=== PATIENT | male | born 1940 | race Caucasian/White ===

== ENCOUNTER 2020-07-08 18:13 | Inpatient (IN) | payer OTHER ==
[2020-07-08 18:53] VITALS: BMI 23.5
--- NOTE | 2020-07-08 19:15 | PDOC ---
History of Present Illness - General Chief Complaint: SIRS, Suspected/Possible Stated Complaint: FEVER Time Seen by Provider: 07/08/20 19:07 History Source: Patient, Family, [facility] Records - History of Present Illness Initial Comments: 07/08/20 19:14 Randy Garcia is an 80M with PMH COVID-19 infection in February 2020, recurrent UTI, prostate CA responsive to hormone therapy, CAD s/p stenting ~10 years ago, early stage dementia, presenting from [facility] for fever. Per patient, has not been eating a lot, just had an Ensure today. Last urination yesterday, says he has not had to go for a while. Reports feeling weak and having a fever today, otherwise denies chest pain, SOB, abd pain, coughing, diarrhea. Denies any recent illness, dysuria, or any recent hospitalizations. Received call from nurse at [facility], has had a fever all day today, last checked 102F, given Tylenol PO at 17:30. Received call from son Nitin Garcia, reports patient is baseline alert and oriented but has periods of decreased lucidity. Was covid-19 positive in February, . Has had multiple recurrent UTI since then, was hospitalized at [facility] for IV ABx. Past History - Medical History Allergies/Adverse Reactions: Allergies Allergy/AdvReac Type Severity Reaction Status Date / Time No Known Allergies Allergy Verified 07/08/20 18:27 Home Medications: Ambulatory Orders Acetaminophen 325 mg PO BID 07/08/20 Ascorbic Acid [Vitamin C] 250 mg PO BID 07/08/20 Aspirin 81 mg PO DAILY 07/08/20 Desvenlafaxine Succinate [Desvenlafaxine Succinate ER] 25 mg PO DAILY 07/08/20 Memantine HCl [Memantine HCl ER] 28 mg PO DAILY 07/08/20 Mirtazapine 7.5 mg PO HS 07/08/20 Rivastigmine 1 each TD DAILY 07/08/20 Silodosin 4 mg PO DAILY 07/08/20 Tamsulosin HCl 0.4 mg PO DAILY 07/08/20 Cancer: Yes (PROSTATE) COPD: No Dementia: Yes - Psycho-Social/Smoking History Smoking History: Never smoked Have you smoked in the past 12 months: No Information on smoking cessation initiated: No - Substance Abuse Hx (Audit-C & DAST Scrn) How often the patient has a drink containing alcohol: Never Score: In Men: 4 or > Positive; In Women: 3 or > Positive: 0 Screen Result (Pos requires Nsg. Audit-10AR): Negative In the last yr the pt used illegal drug/Rx for NonMed reason: No Score: Yes response is considered Positive: 0 Screen Result (Positive result requires Nsg. DAST-10): Negative Review of Systems - Review of Systems Able to Perform ROS?: Yes Constitutional: Yes: Fever, Weakness HEENTM: No: Symptoms Reported Respiratory: No: Symptoms reported Cardiac (ROS): No: Symptoms Reported ABD/GI: No: Symptoms Reported : No: Burning, Dysuria, Discharge, Flank Pain, Incontinence, Pain Musculoskeletal: No: Symptoms Reported Integumentary: No: Symptoms Reported Neurological: No: Symptoms reported Endocrine: No: Symptoms Reported Hematologic/Lymphatic: No: Symptoms Reported All Other Systems: Reviewed and Negative *Physical Exam - Vital Signs Last Vital Signs Temp Pulse Resp BP Pulse Ox 102.3 F H 109 H 20 121/73 96 07/08/20 18:27 07/08/20 18:27 07/08/20 18:27 07/08/20 18:27 07/08/20 18:27 - Physical Exam General Appearance: Yes: Nourished, Appropriately Dressed, Other (resting comfortably in bed, in NAD, feels very warm). No: Apparent Distress HEENT: positive: EOMI, SHEYLA, Normal Voice, Symmetrical, Pharynx Normal. negative: Scleral Icterus (R), Scleral Icterus (L), Pharyngeal Erythema, Tonsillar Exudate, Tonsillar Erythema Neck: positive: Normal Thyroid. negative: Tender, Supple, Lymphadenopathy (L), Tender lateral, Tender midline Respiratory/Chest: positive: Lungs Clear, Normal Breath Sounds. negative: Chest Tender, Respiratory Distress, Accessory Muscle Use, Crackles, Rales, Rhonchi, Stridor, Wheezing Cardiovascular: positive: Regular Rhythm, Tachycardia. negative: Murmur Gastrointestinal/Abdominal: positive: Normal Bowel Sounds, Soft, Protuberent. negative: Tender, Organomegaly, Guarding, Rebound, Tenderness Male Genitalia: positive: other (hypospadias) Musculoskeletal: positive: Normal Inspection. negative: CVA Tenderness, Decreased Range of Motion, Vertebral Tenderness Extremity: positive: Normal Capillary Refill, Normal Inspection, Normal Range of Motion, Pelvis Stable. negative: Tender, Pedal Edema, Swelling, Calf Tenderness Integumentary: positive: Normal Color, Dry, Warm. 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 Patient is A/Ox2 and reports no symptoms other than fever and weakness, VS remarkable for tachycardia and fever to 102F oral. Concerned for infectious etiology most likely UTI vs. PNA, evaluating broadly with sepsis labs, BC, UA/UC, CXR, ECG. Giving sepsis dose IVF LR and Ofirmev for fever. Will likely need admission for IV Abx for infectious etiology. 07/08/20 20:11 ECG shows NSR with HR 90, QTc 435, no RALPH/D or TWI. CXR grossly unremarkable for pathology on bedside read. 07/08/20 20:57 Labs notable for: - WBC 12.1 - Hgb 9.6, unclear baseline - Na 133 - Cr 2.3, unclear baseline - UA 2+ protein, 3+ blood, 3+ LE, uncontaminated, 15 bacteria, did have traumatic straight cath insertion 2/2 hypospadias Will treat for presumed UTI with 1g Rocephin. Repeat VS remarkable for HR 80s and repeat temp 98F. Will need admission for IV Abx given suspected UTI with OLIVA, evaluation for possible anemia. 07/08/20 21:[address] Singleton, accepts for admission to Med/Surg under his service. Discharge - Discharge Information Problems reviewed: Yes Clinical Impression/Diagnosis: Systemic inflammatory response syndrome (SIRS), OLIVA (acute kidney injury) Fever Qualifiers: Fever type: unspecified Qualified Code(s): R50.9 - Fever, unspecified UTI (urinary tract infection) Qualifiers: Urinary tract infection type: site unspecified Hematuria presence: without hematuria Qualified Code(s): N39.0 - Urinary tract infection, site not specified - Admission Yes - Follow up/Referral Referrals: Pamela Hooks [Primary Care Provider] - - Patient Discharge Instructions - Post Discharge Activity
[2020-07-08] MEDS ORDERED: ACETAMINOPHEN 1000 MG/100 ML VIAL (NON FORMULARY) IVPB ONE (19:38)
[2020-07-08] MEDS ORDERED: ACETAMINOPHEN INJECTION 100 ML IVPB ONE (19:44)
[2020-07-08] MEDS ORDERED: LACTATED RINGERS SOLUTION 1000 ML INFUS.BAG IV ONE (19:52)
--- NOTE | 2020-07-08 19:55 | PDOC ---
Documentation entered by Corazon Gamez SCRIBE, acting as scribe for Leticia Jaquez MD. Leticia Jaquez MD: This documentation has been prepared by the Vera cardenas Brenda, SCRIBE, under my direction and personally reviewed by me in its entirety. I confirm that the documentation accurately reflects all work, treatment, procedures, and medical decision making performed by me. Attending Attestation - Resident Resident Name: JahairaCallum - ED Attending Attestation I have performed the following: I have examined & evaluated the patient, The case was reviewed & discussed with the resident, I agree w/resident's findings & plan, Exceptions are as noted - HPI HPI: 07/08/20 19:46 The patient is an 80 year old male with a significant pmh of prostate CA responsive to hormone therapy, CAD s/p stent (10 years ago) and mild dementia who presents to the ED BIBA for evaluation of a 102 fever from [facility]. [facility], he had a 102 fever and she gave him Tylenol at 5:45pm. Patient was COVID+ in February 2020. Last urination was yesterday. The patient denies chest pain, shortness of breath, headache and dizziness. Denies fever, chills, nausea, vomiting, diarrhea and constipation. - Physicial Exam PE: 07/08/20 19:54 thin 80 yo male who has had fever head ncat neck supple lungs cta b/l cvs tachycardia abdomen no rebound skin warn and dry no cva tenderness extremities no erythema neuro alert and conversant 07/08/20 21:33 - Medical Decision Making 07/09/20 01:37 pt is febrile with UTI and worsening CKD and he was admitted Discharge - Discharge Information Problems reviewed: Yes Clinical Impression/Diagnosis: Systemic inflammatory response syndrome (SIRS), OLIVA (acute kidney injury) Fever Qualifiers: Fever type: unspecified Qualified Code(s): R50.9 - Fever, unspecified UTI (urinary tract infection) Qualifiers: Urinary tract infection type: site unspecified Hematuria presence: without hematuria Qualified Code(s): N39.0 - Urinary tract infection, site not specified - Follow up/Referral - Patient Discharge Instructions - Post Discharge Activity
[2020-07-08 20:07] LABS: EOS % 0.4 % (0-4.5); HEMATOCRIT 28.6 % (35.4-49); HEMOGLOBIN 9.6 GM/dL (11.7-16.9); LYMPH % 6.7 % (8-40); MCH 28.1 pg (25.7-33.7); MCHC 33.4 g/dl (32.0-35.9); MEAN PLT VOLUME 7.8 fl (7.5-11.1); MONO % 8.4 % (3.8-10.2); NEUT % 83.5 % (42.8-82.8); PLATELET COUNT 346 K/MM3 (134-434); RDW 14.5 % (11.9-15.9); WHITE BLOOD COUNT 12.1 K/mm3 (4.0-10.0)
[2020-07-08 20:28] LABS: ALBUMIN 2.9 g/dl (3.4-5.0); BILIRUBIN,TOTAL 0.3 mg/dL (0.2-1); BLOOD UREA NITROGEN 44.2 mg/dL (7-18); CALCIUM 8.5 mg/dL (8.5-10.1); CREATININE 2.3 mg/dL (0.55-1.3); POTASSIUM 4.8 mmol/L (3.5-5.1)
[2020-07-08 20:34] LABS: INR 1.25 (0.83-1.09); PROTHROMBIN TIME (PATIENT) 14.8 SEC (9.7-13.0)
[2020-07-08 20:36] LABS: ACTIVATED PTT 30.3 SECONDS (25.2-36.5)
[2020-07-08 20:38] LABS: EPI CELLS 0 /uL (0-25.1); HYALINE CASTS 1 /uL (0-3.1); PH,URINE 6.5 (5.0-8.0); URINE APPEARANCE CLOUDY; URINE BACTERIA 15 /uL (0-1359); URINE BILIRUBIN NEGATIVE (NEGATIVE); URINE COLOR YELLOW; URINE GLUCOSE (UA) NEGATIVE (NEGATIVE); URINE KETONE NEGATIVE (NEGATIVE); URINE LEUK ESTERASE 3+ (NEGATIVE); URINE NITRITE NEGATIVE (NEGATIVE); URINE PROTEIN 2+ (NEGATIVE); URINE RBC 572 /uL (0-23.9); URINE UROBILINOGEN 0.2 mg/dL (0.2-1.0); URINE WBC 1597 /uL (0-25.8)
[2020-07-08] MEDS ORDERED: CEFTRIAXONE 1,000 MG in DEXTROSE 5%-WATER - 50 ML IVPB ONE (21:07)
[2020-07-08] MEDS ORDERED: cefTRIAXone SODIUM 1 GM VIAL ONE (21:08)
--- NOTE | 2020-07-08 21:22 | HP ---
Admitting History and Physical - Admission Chief Complaint: Acute onset of fever History of Present Illness: This 80 yr old w/m with PMH of prostate cancer responsive to hormone therapy, CAD, s/p stent, mild dementia, s/p Covid infection in 02/2020 admitted via ER with an acute fever, acute UTI, acute prerenal azotemia, anemia, neutrophilic leukocytosis, and acute hyponatremia. 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 Cardiovascular: No: AFIB, Aneurysm, Aortic Insufficiency, Aortic Stenosis, CAD, CHF, Deep Vein Thrombosis, HTN, Hyperlipdemia, [place], Mitral Insufficiency, Mitral Stenosis, Murmur, Pulmonary Hypertension, Other Pulmonary: No: Asthma, Bronchitis, Cancer, COPD, O2 Dependent, Pneumonia, Previously Intubated, Pulmonary Embolus, Pulmonary Fibrosis, Sleep Apnea, Other Gastrointestinal: No: Ascites, Cancer, Constipation, Crohn's Disease, D iverticulitis, Diverticulosis, Esophageal Varices, Gastritis, GERD, GI Bleed, Hemorrhoids, Hiatal Hernia, Inflamatory Bowel Disease, Irritable Bowel Disease, Pancreatitis, Peptic Ulcer Disease, Ulcerative Colitis, Other Hepatobiliary: No: Cirrhosis, Cholelithiasis, Cholecystitis, Choledocholithiasis, Hepatitis A, Hepatitis B, Hepatitis C, Other Renal/: Yes: Cancer (prostate) Heme/Onc: No: Anemia, B12 Deficiency, Bleeding Disorder, Cancer, Current Chemotherapy, Current Radiation Therapy, Hemochromatosis, Hypercoaguable State, Myeloproliferative Synd, Sickle Cell Disease, Sickle Cell Trait, Thrombocytopenia, Other Infectious Disease: No: AIDS, C-Diff, Herpes Zoster, HIV, MRSA, STD's, Tubercu losis, VREF, Other Psych: Yes: Anxiety, Depression Musculoskeletal: No: Bursitis, Chronic low back pain, Hemiparesis, Hemiplegia, Osteoarthritis, Paraplegia, Other Rheumatology: No: Fibromyalgia, Gout, Lupus, Rheumatoid Arthritis, Sarcoidosis, Vasculitis, Other ENT: No: Allergic Rhinitis, Sinusitis, Other Endocrine: No: Kd's Disease, Luis Antonio's Disease, Diabetes Insipidus, Diabetes Mellitus, Hyperparathyroidism, Hyperthyroidism, Hypothyroidism, Osteopenia, SIADH, Other Dermatology: No: Basal Cell, Cellulitis, Eczema, Melanoma, Psoriasis, Squamous Cell, Other - Past Surgical History Past Surgical History: Yes: Stent - Smoking History Smoking history: Never smoked Have you smoked in the past 12 months: No - Alcohol/Substance Use History of Substance Use: reports: None - Social History Usual Living Arrangement: Yes: Assisted Living Home Medications - Allergies Allergies/Adverse Reactions: Allergies Allergy/AdvReac Type Severity Reaction Status Date / Time No Known Allergies Allergy Verified 07/08/20 18:27 - Home Medications Home Medications: Ambulatory Orders Acetaminophen 325 mg PO BID 07/08/20 Ascorbic Acid [Vitamin C] 250 mg PO BID 07/08/20 Aspirin 81 mg PO DAILY 07/08/20 Desvenlafaxine Succinate [Desvenlafaxine Succinate ER] 25 mg PO DAILY 07/08/20 Memantine HCl [Memantine HCl ER] 28 mg PO DAILY 07/08/20 Mirtazapine 7.5 mg PO HS 07/08/20 Rivastigmine 1 each TD DAILY 07/08/20 Silodosin 4 mg PO DAILY 07/08/20 Tamsulosin HCl 0.4 mg PO DAILY 07/08/20 Review of Systems - Review of Systems Constitutional: reports: Fever, Weakness Eyes: reports: No Symptoms HENT: reports: No Symptoms Neck: reports: No Symptoms Cardiovascular: reports: Palpitations Respiratory: reports: No Symptoms Gastrointestinal: reports: No Symptoms Genitourinary: reports: No Symptoms Breasts: reports: No Symptoms Reported Musculoskeletal: reports: Muscle Weakness Integumentary: reports: No Symptoms Neurological: reports: Weakness Endocrine: reports: No Symptoms Hematology/Lymphatic: reports: No Symptoms Psychiatric: reports: Anxiety, Depression Physical Examination Vital Signs: Vital Signs Temperature 98.0 F 07/08/20 20:53 Pulse Rate 86 07/08/20 20:54 Respiratory Rate 20 07/08/20 20:53 Blood Pressure 117/65 07/08/20 20:54 O2 Sat by Pulse Oximetry (%) 96 07/08/20 18:27 Constitutional: Yes: Well Nourished, No Distress, Calm Eyes: Yes: Conjunctiva Clear, EOM Intact HENT: Yes: Atraumatic, Normocephalic Neck: Yes: Supple, Trachea Midline Cardiovascular: Yes: Regular Rate and Rhythm Respiratory: Yes: Regular, CTA Bilaterally Gastrointestinal: Yes: Normal Bowel Sounds, Soft ...Rectal Exam: Yes: Deferred Renal/: Yes: WNL Breast(s): Yes: WNL Musculoskeletal: Yes: Muscle Weakness Edema: No Peripheral Pulses WNL: Yes Integumentary: Yes: WNL Neurological: Yes: Alert, Weakness ...Motor Strength: LUE (generalized muscle weakness of all extremities) Psychiatric: Yes: Alert Labs: CBC, BMP 07/08/20 19:40 07/08/20 19:40 Imaging - Results Other: Report Reviewed (lab data reviewed) Problem List - Problems (1) Dehydration Code(s): E86.0 - DEHYDRATION (2) Prerenal azotemia Code(s): R79.89 - OTHER SPECIFIED ABNORMAL FINDINGS OF BLOOD CHEMISTRY (3) Anemia Code(s): D64.9 - ANEMIA, UNSPECIFIED (4) Hyponatremia Code(s): E87.1 - HYPO-OSMOLALITY AND HYPONATREMIA (5) OLIVA (acute kidney injury) Code(s): N17.9 - ACUTE KIDNEY FAILURE, UNSPECIFIED (6) Fever Code(s): R50.9 - FEVER, UNSPECIFIED Qualifiers: Fever type: unspecified Qualified Code(s): R50.9 - Fever, unspecified (7) Systemic inflammatory response syndrome (SIRS) Code(s): R65.10 - SIRS OF NON-INFECTIOUS ORIGIN W/O ACUTE ORGAN DYSFUNCTION (8) UTI (urinary tract infection) Code(s): N39.0 - URINARY TRACT INFECTION, SITE NOT SPECIFIED Qualifiers: Urinary tract infection type: site unspecified Hematuria presence: without hematuria Qualified Code(s): N39.0 - Urinary tract infection, site not specified (9) Prostate cancer Code(s): C61 - MALIGNANT NEOPLASM OF PROSTATE Assessment/Plan Assessment/plan: acute fever, acute UTI, acute urosepsis, acute dehydration, acute prerenal azotemia, acute anemia, OLIVA, CAD, prostate cancer responsive to hormone therapy, mild dementia, personal hx of Covid 19 infection in 02/2020; IV fluids for dehydration, IV Ceftriaxone for UTI, physical therapy, oral tylenol for fever, venlafxine and mirtazapine for depression and anxiety, TITO stockings, hold aspirin.
[2020-07-08] MEDS ORDERED: POTASSIUM CHLORIDE 10 MEQ in DEXTROSE 5%-NORMAL SALINE 1,000 ML IVPB SCH (22:30)
[2020-07-09] MEDS: ASCORBIC ACID 250 MG TABLET (FP) PO SCH ×3 (00:31→22:18)
[2020-07-09] MEDS: ACETAMINOPHEN 325 MG TABLET (FP) PO PRN ×2 (03:26→10:23)
[2020-07-09 08:01] LABS: HEMATOCRIT 29.9 % (35.4-49); HEMOGLOBIN 9.6 GM/dL (11.7-16.9); MCH 27.3 pg (25.7-33.7); MCHC 32.2 g/dl (32.0-35.9); MEAN CELL VOLUME 84.8 fl (80-96); MEAN PLT VOLUME 7.7 fl (7.5-11.1); PLATELET COUNT 367 K/MM3 (134-434); RBC 3.53 M/mm3 (4.00-5.60); RDW 14.5 % (11.9-15.9); WHITE BLOOD COUNT 21.8 K/mm3 (4.0-10.0)
--- NOTE | 2020-07-09 08:19 | PN ---
Progress Note, Physician Chief Complaint: Patient seen and examined at the bedside, no acute events from last night, febrile. History of Present Illness: This 80 yr old w/m with PMH of prostate cancer, CAD, s/p stent, mild dementia, hx of Covid 19 infection in 02/2020 admitted via ER with an acute fever, UTI, uirosepsis, dehydration, prerenal azotemia, OLIVA, hyponatremia, and neutrophilic leukocytosis. - Current Medication List Current Medications: Active Medications Acetaminophen (Tylenol -) 650 mg PO Q6H PRN PRN Reason: FEVER Last Admin: 07/09/20 03:26 Dose: 650 mg Documented by: Ascorbic Acid (Vitamin C -) 250 mg PO BID GENEVIEVE Last Admin: 07/09/20 00:31 Dose: 250 mg Documented by: Enoxaparin Sodium (Lovenox -) 30 mg SQ DAILY [facility] Potassium Chloride 10 meq/ (Dextrose/Sodium Chloride) 1,005 mls @ 50 mls/hr IVPB Q20H [facility] Last Admin: 07/09/20 00:38 Dose: 50 mls/hr Documented by: Memantine (Namenda -) 10 mg PO BID [facility] Mirtazapine (Remeron -) 7.5 mg PO HS [facility] Pantoprazole Sodium (Protonix -) 40 mg PO DAILY [facility] Rivastigmine (Exelon Patch 9.5 Mg/24 Hours -) 1 each TD Q24H [facility] Tamsulosin HCl (Flomax -) 0.4 mg PO DAILY@0830 [facility] Venlafaxine HCl (Effexor Xr -) 37.5 mg PO DAILY@0800 [facility] - Objective Vital Signs: Vital Signs Temperature 99.5 F 07/09/20 06:00 Pulse Rate 95 H 07/09/20 06:00 Respiratory Rate 07/09/20 06:00 Blood Pressure 109/59 L 07/09/20 06:00 O2 Sat by Pulse Oximetry (%) 98 07/09/20 06:00 Constitutional: Yes: Well Nourished, No Distress, Calm Eyes: Yes: Conjunctiva Clear, EOM Intact HENT: Yes: Atraumatic, Normocephalic Neck: Yes: Supple, Trachea Midline Cardiovascular: Yes: Regular Rate and Rhythm Respiratory: Yes: Regular, CTA Bilaterally Gastrointestinal: Yes: Normal Bowel Sounds, Soft ...Rectal Exam: Yes: Deferred Genitourinary: Yes: Lewis Present Breast(s): Yes: WNL Musculoskeletal: Yes: Muscle Weakness Extremities: Yes: WNL Edema: No Peripheral Pulses WNL: Yes Integumentary: Yes: WNL Neurological: Yes: Alert, Unsteady Gait, Weakness ...Motor Strength: LUE (generalized muscle weakness of all extremities) Psychiatric: Yes: Alert Labs: CBC, BMP 07/09/20 07:16 INR, PTT INR 1.25 (0.83-1.09) H 07/08/20 19:40 - ....Imaging Other: Report Reviewed (lab data reviewed) Problem List - Problems (1) Dehydration Code(s): E86.0 - DEHYDRATION (2) Prerenal azotemia Code(s): R79.89 - OTHER SPECIFIED ABNORMAL FINDINGS OF BLOOD CHEMISTRY (3) Anemia Code(s): D64.9 - ANEMIA, UNSPECIFIED (4) Hyponatremia Code(s): E87.1 - HYPO-OSMOLALITY AND HYPONATREMIA (5) OLIVA (acute kidney injury) Code(s): N17.9 - ACUTE KIDNEY FAILURE, UNSPECIFIED (6) Fever Code(s): R50.9 - FEVER, UNSPECIFIED Qualifiers: Fever type: unspecified Qualified Code(s): R50.9 - Fever, unspecified (7) Systemic inflammatory response syndrome (SIRS) Code(s): R65.10 - SIRS OF NON-INFECTIOUS ORIGIN W/O ACUTE ORGAN DYSFUNCTION (8) UTI (urinary tract infection) Code(s): N39.0 - URINARY TRACT INFECTION, SITE NOT SPECIFIED Qualifiers: Urinary tract infection type: site unspecified Hematuria presence: without hematuria Qualified Code(s): N39.0 - Urinary tract infection, site not specified (9) Prostate cancer Code(s): C61 - MALIGNANT NEOPLASM OF PROSTATE Assessment/Plan Assessment/plan: acute fever, UTI, urosepsis, dehydration, prerenal azotemia, OLIVA, hyponatremia, rising neutrophilic leukocytosis, prostate cancer, CAD, hx of Covid 19 infection; IV fluids for dehydration, IV Ceftriaxone for UTI, Lovenox and pantoprazole for DVT/GI prophylaxis, physical therapy, consult to ID pending, renal and bladder sono pending, mirtazapine and venlafaxine for depression, memantine and rivastigmine for dementia.
[2020-07-09 08:20] LABS: ALBUMIN 2.7 g/dl (3.4-5.0); BILIRUBIN,TOTAL 0.5 mg/dL (0.2-1); BLOOD UREA NITROGEN 38.7 mg/dL (7-18); CALCIUM 9.2 mg/dL (8.5-10.1); CREATININE 2.1 mg/dL (0.55-1.3); POTASSIUM 5.1 mmol/L (3.5-5.1)
[2020-07-09] MEDS ORDERED: RIVASTIGMINE 4.6 MG/24 HOURS TRANSDERMAL PATCH TD SCH (10:00)
[2020-07-09] MEDS ORDERED: PT OWN MED DRAWER 7, Y5N ONE ×2 (10:17→21:47)
[2020-07-09] MEDS: ENOXAPARIN NA (PORCINE) 30 MG/0.3 ML DISP.SYRIN SQ SCH (10:21)
[2020-07-09] MEDS: PANTOPRAZOLE 40 MG TABLET PO SCH (10:21)
[2020-07-09] MEDS: TAMSULOSIN HCL 0.4 MG CAP PO SCH (10:21)
[2020-07-09] MEDS: MEMANTINE HCL 10 MG TABLET (FP) PO SCH ×2 (10:21→22:18)
--- NOTE | 2020-07-09 10:37 | EKG ---
Test Reason : Blood Pressure : / mmHG Vent. Rate : 090 BPM Atrial Rate : 090 BPM P-R Int : 140 ms QRS Dur : 088 ms QT Int : 356 ms P-R-T Axes : 064 041 054 degrees QTc Int : 435 ms NORMAL SINUS RHYTHM NORMAL ECG NO PREVIOUS ECGS AVAILABLE Confirmed by Rich Dickson MD ([id number]) on 07/09/2020 10:36:48 AM Referred By: Confirmed By:Rich Dickson MD
--- NOTE | 2020-07-09 10:59 | PN ---
Progress Note (short form) - Note Progress Note: ID CONSULT DICTATED UTI R/O SEPSIS SECONDARY TO UTI MARKED LEUKOCYTOSIS AZOTEMIA PENDING SEPSIS W/U EMPIRIC ZOSYN, ADJUSTED FOR AZOTEMIA
[2020-07-09] MEDS ORDERED: PIPERACILLIN/TAZOBACTAM 3.375 GM VIAL IVPB ONE ×2 (11:45→17:42)
[2020-07-09] MEDS ORDERED: DEXTROSE 5%-WATER - 50 ML IVPB ONE ×2 (11:45→17:42)
--- NOTE | 2020-07-09 11:49 | CONS ---
INFECTIOUS DISEASE CONSULTATION DATE OF CONSULTATION: DATE OF DICTATION: 07/09/2020 HISTORY: The patient is an 80-year-old male with a history of prostate cancer, history of recurrent urinary tract infections, now admitted with high grade fever. He is a resident of [facility]. He suffers from mild dementia. History was obtained from the chart. According to the notes, he had [facility] to [facility] associated with decreased oral intake and decreased urinary output. He was transferred to [facility] where his course was complicated by temperature to 103 and a white blood cell count of 21.8. Urine analysis showed many white cells. He is unable to give any additional history. He has a Lewis catheter in place. According to the notes, he was diagnosed with COVID-19 in February 2020. Since that time he has had recurrent urinary tract infections. He had apparently been hospitalized at [facility] recently and had received IV antibiotics. Further details are not available, and no reported history of multidrug-resistant organisms. PAST MEDICAL HISTORY: Positive for COVID-19 in February 2020, prostate cancer, coronary artery disease, recurrent urinary tract infections, dementia. PAST SURGICAL HISTORY: Status post coronary artery stent. ALLERGIES: No known allergies. OUTPATIENT MEDICATIONS: Include Tylenol, vitamin C, aspirin, memantine, Flomax. SOCIAL HISTORY: [facility], suffers from mild dementia. Nonsmoker, nondrinker. SYSTEMS REVIEW: Neurologic: Positive for mild dementia. No loss of consciousness, seizure activity or focal weakness. Cardiac: Negative chest pain or palpitations. Respiratory: Negative cough or sputum production. Gastrointestinal: Negative vomiting or diarrhea. Genitourinary: As per HPI. LABORATORY DATA: White count 21.8, hematocrit 29.9, platelets 367. BUN 38, creatinine 2.1, glucose 113, liver enzymes normal. Urine analysis 1597 white cells. COVID-19 PCR pending. Cultures pending. Sonogram of the urinary tract shows bilateral hydronephrosis without evidence of stone. Chest x-ray negative for acute infiltrate. PHYSICAL EXAMINATION: General: He is awake. He is comfortable. He is supine in bed in no acute distress. Vital Signs: Temperature 103.1, blood pressure 109/59, pulse 95 regular, respirations 20 per minute. HEENT: Sclerae are anicteric. Heart: Sounds S1, S2. Lungs: Clear. Abdomen: Soft. No suprapubic or flank tenderness. Genitourinary: Lewis catheter is in place. Urine is not grossly purulent. Extremities: Negative for edema. IMPRESSION: 1. Urinary tract infection, possible sepsis secondary to urinary tract infection. 2. Hydronephrosis by sonogram, rule out obstructive uropathy. 3. Marked leukocytosis. 4. Azotemia. Await sepsis workup. Await blood and urine culture results. Empiric antibiotic coverage with Zosyn pending cultures. Will follow. Thank you for the kind referral. EZIO MOORE M.D. [id number]
[2020-07-09] MEDS: PIPERACILLIN/TAZOB 3.375 GM 3.375 GM in DEXTROSE 5%-WATER - 50 ML IVPB SCH ×2 (11:54→17:53)
[2020-07-09] MEDS: RIVASTIGMINE 9.5 MG/24 HOURS TRANSDERMAL PATCH TD SCH (11:54)
[2020-07-09] MEDS: VENLAFAXINE HCL 37.5 MG E.R. CAPSULE PO SCH (11:54)
[2020-07-09] MEDS: DEXTROSE 5%-NORMAL SALINE 1,000 ML IV SCH (11:56)
[2020-07-09] MEDS: FE POLYSAC/CYANOCOBAL/FA COMBO CAPSULE PO SCH (14:16)
[2020-07-09] MEDS: MIRTAZAPINE 15 MG TABLET (FP) PO SCH (22:18)
--- NOTE | 2020-07-10 00:16 | CONS ---
DATE OF CONSULTATION: DATE OF DICTATION: 07/09/2020 HISTORY OF PRESENT ILLNESS: Patient is an 80-year-old male admitted via the emergency room on July 08, 2020. He comes in with acute onset of fever. The patient does have history of prostate cancer undergoing hormone therapy. He has history of coronary artery disease, which he underwent an angioplasty and stent placement. He does have slight dementia. He also has had a COVID infection of February 26, 2020. He is admitted via the emergency room with elevated temperatures, urinary frequency, urgency, and acute onset of azotemia, anemia, leukocytosis, and acute hyponatremia. SOCIAL HISTORY: The patient does have history of dementia. He does have history of anxiety and depression. He has never smoked, denies ethanolism. He is living in assisted living. ALLERGIES: He denies any allergies. MEDICATION: He is on desvenlafaxine succinate, memantine, , rivastigmine, Rapaflo, and Flomax. PHYSICAL EXAMINATION: Vital signs: His temperature was 98, pulse 86, respirations 20, O2 saturation 96, blood pressure 117/65. Abdomen: The patient's abdomen was soft. There was no CVA tenderness. Extremities: There was weakness in all 4 extremities. LABORATORY: His white count is 12.1, hemoglobin and hematocrit is 9.6 over 28.6. BUN and creatinine were 44.2 over 2.3. Admission diagnosis was dehydration, anemia, hypoosmolality and hyponatremia, acute kidney failure, fever. He underwent a renal and pelvic ultrasound. This revealed bilateral hydroureteronephrosis without gross evidence of stones. The bladder was distended with bladder wall thickness. There appeared to be layering of internal debris in the bladder. The patient was unable to void. The prostate is enlarged. The patient had a Lewis catheter placed. IMPRESSION: He appears to have a picture of urosepsis and hydronephrosis with a marked leukocytosis as well as azotemia. Will treat with Zosyn pending cultures. Will also repeat renal ultrasound to rule out obstructive azotemia secondary to prostate obstruction. Will follow patient with you. CATINA DUNN M.D. [id number]
[2020-07-10] MEDS ORDERED: PIPERACILLIN/TAZOBACTAM 3.375 GM VIAL IVPB ONE ×3 (02:37→17:19)
[2020-07-10] MEDS ORDERED: DEXTROSE 5%-WATER - 50 ML IVPB ONE ×3 (02:37→17:19)
[2020-07-10] MEDS: PIPERACILLIN/TAZOB 3.375 GM 3.375 GM in DEXTROSE 5%-WATER - 50 ML IVPB SCH ×3 (02:41→17:23)
[2020-07-10] MEDS: DEXTROSE 5%-NORMAL SALINE 1,000 ML IV SCH ×3 (06:21→23:05)
[2020-07-10 08:35] LABS: BASO % 0.7 % (0-2.0); EOS % 0.3 % (0-4.5); HEMATOCRIT 27.4 % (35.4-49); HEMOGLOBIN 8.7 GM/dL (11.7-16.9); LYMPH % 8.3 % (8-40); MCH 26.8 pg (25.7-33.7); MCHC 31.8 g/dl (32.0-35.9); MEAN CELL VOLUME 84.4 fl (80-96); MEAN PLT VOLUME 8.1 fl (7.5-11.1); MONO % 8.5 % (3.8-10.2); NEUT % 82.2 % (42.8-82.8); PLATELET COUNT 293 K/MM3 (134-434); RBC 3.25 M/mm3 (4.00-5.60); RDW 14.8 % (11.9-15.9); WHITE BLOOD COUNT 12.8 K/mm3 (4.0-10.0)
[2020-07-10] MEDS ORDERED: PT OWN MED DRAWER 7, Y5N ONE ×3 (08:46→20:51)
[2020-07-10] MEDS: TAMSULOSIN HCL 0.4 MG CAP PO SCH (08:50)
[2020-07-10] MEDS: VENLAFAXINE HCL 37.5 MG E.R. CAPSULE PO SCH (08:50)
[2020-07-10 09:01] LABS: ALBUMIN 2.2 g/dl (3.4-5.0); BILIRUBIN,TOTAL 0.5 mg/dL (0.2-1); BLOOD UREA NITROGEN 35.6 mg/dL (7-18); CALCIUM 8.4 mg/dL (8.5-10.1); CREATININE 2.4 mg/dL (0.55-1.3); POTASSIUM 4.5 mmol/L (3.5-5.1); TOT PROT 5.9 g/dl (6.4-8.2)
--- NOTE | 2020-07-10 10:40 | PN ---
Progress Note, Physician Chief Complaint: Patient seen and examined at the bedside, no acute events from last night, febrile, c/o constipation. History of Present Illness: This 80 yr old w/m with PMH of prostate cancer, CAD, s/p stent, mild dementia, hx of Covid 19 infection in 02/25 admitted via ER with an acute fever, UTI, urosepsis, dehydration, OLIVA, prerenal azotemia, anemia, and hyponatremia. - Current Medication List Current Medications: Active Medications Acetaminophen (Tylenol -) 650 mg PO Q6H PRN PRN Reason: FEVER Last Admin: 07/09/20 10:23 Dose: 650 mg Documented by: Ascorbic Acid (Vitamin C -) 250 mg PO BID [facility] Last Admin: 07/09/20 22:18 Dose: 250 mg Documented by: B12/Folic Ac/Intrin Fact/Iron/Vit C (Niferex-150 Forte -) 1 each PO DAILY [facility] Last Admin: 07/09/20 14:16 Dose: Not Given Documented by: Enoxaparin Sodium (Lovenox -) 30 mg SQ DAILY [facility] Last Admin: 07/09/20 10:21 Dose: 30 mg Documented by: Piperacillin Sod/Tazobactam (Sod 3.375 gm/ Dextrose) 50 mls @ 100 mls/hr IVPB Q8H-IV [facility]; Protocol Last Admin: 07/10/20 02:41 Dose: 100 mls/hr Documented by: Dextrose/Sodium Chloride (D5-Ns -) 1,000 mls @ 50 mls/hr IV ASDIR [facility] Last Admin: 07/10/20 06:21 Dose: 50 mls/hr Documented by: Memantine (Namenda -) 10 mg PO BID [facility] Last Admin: 07/09/20 22:18 Dose: 10 mg Documented by: Mirtazapine (Remeron -) 7.5 mg PO HS [facility] Last Admin: 07/09/20 22:18 Dose: 7.5 mg Documented by: Pantoprazole Sodium (Protonix -) 40 mg PO DAILY [facility] Last Admin: 07/09/20 10:21 Dose: 40 mg Documented by: Rivastigmine (Exelon Patch 9.5 Mg/24 Hours -) 1 each TD Q24H [facility] Last Admin: 07/09/20 11:54 Dose: 1 each Documented by: Tamsulosin HCl (Flomax -) 0.4 mg PO DAILY@0830 [facility] Last Admin: 07/10/20 08:50 Dose: 0.4 mg Documented by: Venlafaxine HCl (Effexor Xr -) 37.5 mg PO DAILY@0800 [facility] Last Admin: 07/10/20 08:50 Dose: 37.5 mg Documented by: - Objective Vital Signs: Vital Signs Temperature 99.4 F 07/10/20 09:06 Pulse Rate 93 H 07/10/20 09:06 Respiratory Rate 07/10/20 09:06 Blood Pressure 117/54 L 07/10/20 09:06 O2 Sat by Pulse Oximetry (%) 96 07/10/20 09:06 Constitutional: Yes: Well Nourished, No Distress, Calm Eyes: Yes: Conjunctiva Clear, EOM Intact HENT: Yes: Atraumatic, Normocephalic Neck: Yes: Supple, Trachea Midline Cardiovascular: Yes: Regular Rate and Rhythm Respiratory: Yes: Regular, CTA Bilaterally Gastrointestinal: Yes: Normal Bowel Sounds, Soft ...Rectal Exam: Yes: Deferred Genitourinary: Yes: Lewis Present Breast(s): Yes: WNL Musculoskeletal: Yes: Muscle Weakness Extremities: Yes: WNL Edema: No Peripheral Pulses WNL: Yes Integumentary: Yes: WNL Neurological: Yes: Alert, Weakness ...Motor Strength: LUE (generalized muscle weakness of all extremities) Psychiatric: Yes: Alert Labs: CBC, BMP 07/10/20 07:13 07/10/20 07:13 INR, PTT INR 1.25 (0.83-1.09) H 07/08/20 19:40 - ....Imaging Ultrasound: Report Reviewed Other: Report Reviewed (lab data reviewed) Problem List - Problems (1) Dehydration Code(s): E86.0 - DEHYDRATION (2) Prerenal azotemia Code(s): R79.89 - OTHER SPECIFIED ABNORMAL FINDINGS OF BLOOD CHEMISTRY (3) Anemia Code(s): D64.9 - ANEMIA, UNSPECIFIED (4) Hyponatremia Code(s): E87.1 - HYPO-OSMOLALITY AND HYPONATREMIA (5) OLIVA (acute kidney injury) Code(s): N17.9 - ACUTE KIDNEY FAILURE, UNSPECIFIED (6) Fever Code(s): R50.9 - FEVER, UNSPECIFIED Qualifiers: Fever type: unspecified Qualified Code(s): R50.9 - Fever, unspecified (7) Systemic inflammatory response syndrome (SIRS) Code(s): R65.10 - SIRS OF NON-INFECTIOUS ORIGIN W/O ACUTE ORGAN DYSFUNCTION (8) UTI (urinary tract infection) Code(s): N39.0 - URINARY TRACT INFECTION, SITE NOT SPECIFIED Qualifiers: Urinary tract infection type: site unspecified Hematuria presence: without hematuria Qualified Code(s): N39.0 - Urinary tract infection, site not specified (9) Prostate cancer Code(s): C61 - MALIGNANT NEOPLASM OF PROSTATE (10) Bilateral hydronephrosis Code(s): N13.30 - UNSPECIFIED HYDRONEPHROSIS Assessment/Plan Assessment/plan: acute fever, UTI, urosepsis, bilateral hydronephrosis, obstructive uropathy, neutrophilic leukocytosis, prerenal azotemia, dehydration, iron deficiency anemia, prostate cancer, CAD, s/p stent, mild dementia, constipation; IV Zosyn for urosepsis as per ID, DVT/GI prophylaxis, mirtazapine and venlafaxine for depression, physical therapy, docusate for constipation.
[2020-07-10] MEDS: PANTOPRAZOLE 40 MG TABLET PO SCH (11:17)
[2020-07-10] MEDS: MEMANTINE HCL 10 MG TABLET (FP) PO SCH ×2 (11:17→21:12)
[2020-07-10] MEDS: ASCORBIC ACID 250 MG TABLET (FP) PO SCH ×2 (11:20→21:12)
[2020-07-10] MEDS: FE POLYSAC/CYANOCOBAL/FA COMBO CAPSULE PO SCH (11:20)
[2020-07-10] MEDS: ENOXAPARIN NA (PORCINE) 30 MG/0.3 ML DISP.SYRIN SQ SCH (11:20)
[2020-07-10] MEDS: RIVASTIGMINE 9.5 MG/24 HOURS TRANSDERMAL PATCH TD SCH (11:21)
[2020-07-10] MEDS ORDERED: IRON SUCROSE INJECTION 200 MG in SODIUM CHLORIDE 90 ML IVPB ONE (16:52)
[2020-07-10] MEDS: ACETAMINOPHEN 325 MG TABLET (FP) PO PRN (21:11)
[2020-07-10] MEDS: MIRTAZAPINE 15 MG TABLET (FP) PO SCH (21:12)
[2020-07-10] MEDS ORDERED: DOCUSATE SODIUM 100 MG CAPSULE (FP) PO SCH (22:00)
--- NOTE | 2020-07-10 22:13 | PN ---
Progress Note, Physician Chief Complaint: AWAKE IN BED OFFERS NO COMPLAINTS APPEARS COMFORTABLE, NON TOXIC REMAINS FEBRILE WBC IMPROVED BC (-) URINE C/S GNR - Current Medication List Current Medications: Active Medications Acetaminophen (Tylenol -) 650 mg PO Q6H PRN PRN Reason: FEVER Last Admin: 07/10/20 21:11 Dose: 650 mg Documented by: Ascorbic Acid (Vitamin C -) 250 mg PO BID [facility] Last Admin: 07/10/20 21:12 Dose: 250 mg Documented by: Enoxaparin Sodium (Lovenox -) 30 mg SQ DAILY [facility] Last Admin: 07/10/20 11:20 Dose: 30 mg Documented by: Piperacillin Sod/Tazobactam (Sod 3.375 gm/ Dextrose) 50 mls @ 100 mls/hr IVPB Q8H-IV [facility]; Protocol Last Admin: 07/10/20 17:23 Dose: 100 mls/hr Documented by: Dextrose/Sodium Chloride (D5-Ns -) 1,000 mls @ 75 mls/hr IV ASDIR [facility] Last Admin: 07/10/20 17:58 Dose: 75 mls/hr Documented by: Memantine (Namenda -) 10 mg PO BID [facility] Last Admin: 07/10/20 21:12 Dose: 10 mg Documented by: Mirtazapine (Remeron -) 7.5 mg PO HS [facility] Last Admin: 07/10/20 21:12 Dose: 7.5 mg Documented by: Pantoprazole Sodium (Protonix -) 40 mg PO DAILY [facility] Last Admin: 07/10/20 11:17 Dose: 40 mg Documented by: Rivastigmine (Exelon Patch 9.5 Mg/24 Hours -) 1 each TD Q24H [facility] Last Admin: 07/10/20 11:21 Dose: 1 each Documented by: Tamsulosin HCl (Flomax -) 0.4 mg PO DAILY@0830 [facility] Last Admin: 07/10/20 08:50 Dose: 0.4 mg Documented by: Venlafaxine HCl (Effexor Xr -) 37.5 mg PO DAILY@0800 [facility] Last Admin: 07/10/20 08:50 Dose: 37.5 mg Documented by: - Objective Vital Signs: Vital Signs Temperature 100.2 F H 07/10/20 21:18 Pulse Rate 63 07/10/20 21:18 Respiratory Rate 18 07/10/20 21:18 Blood Pressure 111/59 L 07/10/20 21:18 O2 Sat by Pulse Oximetry (%) 95 07/10/20 21:18 Constitutional: Yes: No Distress Eyes: Yes: Conjunctiva Clear Cardiovascular: Yes: Regular Rate and Rhythm, S1, S2 Respiratory: Yes: CTA Bilaterally Gastrointestinal: Yes: Normal Bowel Sounds, Soft Labs: CBC, BMP 07/10/20 07:13 07/10/20 07:13 INR, PTT INR 1.25 (0.83-1.09) H 07/08/20 19:40 Assessment/Plan UTI R/O SEPSIS SECONDARY TO UTI FEVER LEUKOCYTOSIS IMPROVED AZOTEMIA AWAIT C/S CONTINUE EMPIRIC ZOSYN
[2020-07-11] MEDS ORDERED: DEXTROSE 5%-WATER - 50 ML IVPB ONE ×2 (02:53→10:50)
[2020-07-11] MEDS ORDERED: PIPERACILLIN/TAZOBACTAM 3.375 GM VIAL IVPB ONE ×2 (02:53→10:50)
[2020-07-11] MEDS: PIPERACILLIN/TAZOB 3.375 GM 3.375 GM in DEXTROSE 5%-WATER - 50 ML IVPB SCH ×3 (03:00→18:11)
--- NOTE | 2020-07-11 08:31 | PN ---
Progress Note, Physician Chief Complaint: Patient seen and examined at the bedside, no acute events from last night, afebrile. History of Present Illness: This 80 yr old w/m with PMH of prostate cancer, CAD, s/p stent, mild dementia, personal hx of Covid 19 infection 02/25 admitted via ER with an acute fever, UTI, urosepsis, neutrophilic leukocytosis, mild bilateral hydronephrosis, prerenal azotemia, dehydration, and iron deficiency anemia. - Current Medication List Current Medications: Active Medications Acetaminophen (Tylenol -) 650 mg PO Q6H PRN PRN Reason: FEVER Last Admin: 07/10/20 21:11 Dose: 650 mg Documented by: Ascorbic Acid (Vitamin C -) 250 mg PO BID [facility] Last Admin: 07/10/20 21:12 Dose: 250 mg Documented by: Enoxaparin Sodium (Lovenox -) 30 mg SQ DAILY [facility] Last Admin: 07/10/20 11:20 Dose: 30 mg Documented by: Piperacillin Sod/Tazobactam (Sod 3.375 gm/ Dextrose) 50 mls @ 100 mls/hr IVPB Q8H-IV [facility]; Protocol Last Admin: 07/11/20 03:00 Dose: 100 mls/hr Documented by: Dextrose/Sodium Chloride (D5-Ns -) 1,000 mls @ 75 mls/hr IV ASDIR [facility] Last Admin: 07/10/20 23:05 Dose: 75 mls/hr Documented by: Memantine (Namenda -) 10 mg PO BID [facility] Last Admin: 07/10/20 21:12 Dose: 10 mg Documented by: Mirtazapine (Remeron -) 7.5 mg PO HS [facility] Last Admin: 07/10/20 21:12 Dose: 7.5 mg Documented by: Pantoprazole Sodium (Protonix -) 40 mg PO DAILY [facility] Last Admin: 07/10/20 11:17 Dose: 40 mg Documented by: Rivastigmine (Exelon Patch 9.5 Mg/24 Hours -) 1 each TD Q24H [facility] Last Admin: 07/10/20 11:21 Dose: 1 each Documented by: Tamsulosin HCl (Flomax -) 0.4 mg PO DAILY@0830 [facility] Last Admin: 07/10/20 08:50 Dose: 0.4 mg Documented by: Venlafaxine HCl (Effexor Xr -) 37.5 mg PO DAILY@0800 [facility] Last Admin: 07/10/20 08:50 Dose: 37.5 mg Documented by: - Objective Vital Signs: Vital Signs Temperature 98.7 F 07/11/20 06:00 Pulse Rate 62 07/11/20 06:00 Respiratory Rate 18 07/11/20 06:00 Blood Pressure 108/56 L 07/11/20 06:00 O2 Sat by Pulse Oximetry (%) 97 07/11/20 06:00 Constitutional: Yes: Well Nourished, No Distress, Calm Eyes: Yes: Conjunctiva Clear, EOM Intact HENT: Yes: Atraumatic, Normocephalic Neck: Yes: Supple, Trachea Midline Cardiovascular: Yes: Regular Rate and Rhythm Respiratory: Yes: Regular, CTA Bilaterally Gastrointestinal: Yes: Normal Bowel Sounds, Soft ...Rectal Exam: Yes: Deferred Genitourinary: Yes: Other (mild bilateral hydronephrosis) Breast(s): Yes: WNL Musculoskeletal: Yes: Muscle Weakness Extremities: Yes: WNL Edema: No Peripheral Pulses WNL: Yes Integumentary: Yes: Pressure Ulcer (Buttocks and sacrum) Neurological: Yes: Alert, Weakness ...Motor Strength: LUE (generalized muscle weakness of all extremities) Psychiatric: Yes: Alert Labs: CBC, BMP 07/10/20 07:13 07/10/20 07:13 INR, PTT INR 1.25 (0.83-1.09) H 07/08/20 19:40 - ....Imaging Other: Report Reviewed (lab data reviewed) Problem List - Problems (1) Dehydration Code(s): E86.0 - DEHYDRATION (2) Prerenal azotemia Code(s): R79.89 - OTHER SPECIFIED ABNORMAL FINDINGS OF BLOOD CHEMISTRY (3) Anemia Code(s): D64.9 - ANEMIA, UNSPECIFIED (4) Hyponatremia Code(s): E87.1 - HYPO-OSMOLALITY AND HYPONATREMIA (5) OLIVA (acute kidney injury) Code(s): N17.9 - ACUTE KIDNEY FAILURE, UNSPECIFIED (6) Fever Code(s): R50.9 - FEVER, UNSPECIFIED Qualifiers: Fever type: unspecified Qualified Code(s): R50.9 - Fever, unspecified (7) Systemic inflammatory response syndrome (SIRS) Code(s): R65.10 - SIRS OF NON-INFECTIOUS ORIGIN W/O ACUTE ORGAN DYSFUNCTION (8) UTI (urinary tract infection) Code(s): N39.0 - URINARY TRACT INFECTION, SITE NOT SPECIFIED Qualifiers: Urinary tract infection type: site unspecified Hematuria presence: without hematuria Qualified Code(s): N39.0 - Urinary tract infection, site not specified (9) Prostate cancer Code(s): C61 - MALIGNANT NEOPLASM OF PROSTATE (10) Bilateral hydronephrosis Code(s): N13.30 - UNSPECIFIED HYDRONEPHROSIS Assessment/Plan Assessment/plan: IV Zosyn for UTI, urosepsis and fever; SQ Lovenox and oral pantoprazole for DVT/GI prophylaxis; IV venofer for iron deficiency anemia; Exelon patch for dementia; mirtazapine and venlafaxine for depression; IV fluids for dehydration, hypotension and prerenal azotemia; tamsulosin for BPH; memantine for memory loss; physical therapy for deconditioning; Tylenol for fever prn; urine culture positive for gram negative rods; BUN and creatinine trending down; Hemoglobin rising.
[2020-07-11 09:11] LABS: BASO % 0.9 % (0-2.0); EOS % 2.3 % (0-4.5); HEMATOCRIT 29.4 % (35.4-49); HEMOGLOBIN 9.4 GM/dL (11.7-16.9); LYMPH % 11.4 % (8-40); MCH 27.2 pg (25.7-33.7); MCHC 31.9 g/dl (32.0-35.9); MEAN CELL VOLUME 85.4 fl (80-96); MEAN PLT VOLUME 8.2 fl (7.5-11.1); MONO % 10.4 % (3.8-10.2); PLATELET COUNT 276 K/MM3 (134-434); RBC 3.44 M/mm3 (4.00-5.60); RDW 15.1 % (11.9-15.9); WHITE BLOOD COUNT 10.8 K/mm3 (4.0-10.0)
[2020-07-11 09:32] LABS: ALBUMIN 2.1 g/dl (3.4-5.0); BILIRUBIN,TOTAL 0.3 mg/dL (0.2-1); BLOOD UREA NITROGEN 33.5 mg/dL (7-18); CALCIUM 8.2 mg/dL (8.5-10.1); CREATININE 2.1 mg/dL (0.55-1.3); POTASSIUM 4.5 mmol/L (3.5-5.1); TOT PROT 6.1 g/dl (6.4-8.2)
[2020-07-11] MEDS ORDERED: PT OWN MED DRAWER 7, Y5N ONE ×2 (10:49→21:04)
[2020-07-11] MEDS: ENOXAPARIN NA (PORCINE) 30 MG/0.3 ML DISP.SYRIN SQ SCH (10:54)
[2020-07-11] MEDS: PANTOPRAZOLE 40 MG TABLET PO SCH (10:54)
[2020-07-11] MEDS: TAMSULOSIN HCL 0.4 MG CAP PO SCH (10:54)
[2020-07-11] MEDS: MEMANTINE HCL 10 MG TABLET (FP) PO SCH ×2 (10:54→21:15)
[2020-07-11] MEDS: ASCORBIC ACID 250 MG TABLET (FP) PO SCH ×2 (10:55→22:30)
[2020-07-11] MEDS: VENLAFAXINE HCL 37.5 MG E.R. CAPSULE PO SCH (10:55)
[2020-07-11] MEDS: RIVASTIGMINE 9.5 MG/24 HOURS TRANSDERMAL PATCH TD SCH (10:55)
[2020-07-11] MEDS: DEXTROSE 5%-NORMAL SALINE 1,000 ML IV SCH (16:29)
[2020-07-11] MEDS: MIRTAZAPINE 15 MG TABLET (FP) PO SCH (21:15)
[2020-07-12] MEDS ORDERED: PIPERACILLIN/TAZOBACTAM 3.375 GM VIAL IVPB ONE ×3 (00:32→16:59)
[2020-07-12] MEDS ORDERED: DEXTROSE 5%-WATER - 50 ML IVPB ONE ×3 (00:33→16:59)
[2020-07-12] MEDS: PIPERACILLIN/TAZOB 3.375 GM 3.375 GM in DEXTROSE 5%-WATER - 50 ML IVPB SCH ×3 (01:00→17:01)
[2020-07-12] MEDS: DEXTROSE 5%-NORMAL SALINE 1,000 ML IV SCH ×2 (06:00→19:04)
[2020-07-12] MEDS ORDERED: PT OWN MED DRAWER 7, Y5N ONE ×3 (08:20→21:20)
[2020-07-12] MEDS: TAMSULOSIN HCL 0.4 MG CAP PO SCH (08:33)
--- NOTE | 2020-07-12 08:36 | PN ---
Progress Note, Physician Chief Complaint: Patient seen and examined at the bedside, no acute events from last night, low grade fever. History of Present Illness: This 80 yr old w/m with PMH of prostate cancer, CAD, s/p stent, mild dementia, hx of Covid 19 infection in 02/25 admitted via ER with an acute fever, UTI, ur osepsis, prerenal azotemia, dehydration and iron deficiency anemia. - Current Medication List Current Medications: Active Medications Acetaminophen (Tylenol -) 650 mg PO Q6H PRN PRN Reason: FEVER Last Admin: 07/10/20 21:11 Dose: 650 mg Documented by: Ascorbic Acid (Vitamin C -) 250 mg PO BID [facility] Last Admin: 07/11/20 22:30 Dose: 250 mg Documented by: Enoxaparin Sodium (Lovenox -) 30 mg SQ DAILY [facility] Last Admin: 07/11/20 10:54 Dose: 30 mg Documented by: Piperacillin Sod/Tazobactam (Sod 3.375 gm/ Dextrose) 50 mls @ 100 mls/hr IVPB Q8H-IV [facility]; Protocol Last Admin: 07/12/20 01:00 Dose: 100 mls/hr Documented by: Dextrose/Sodium Chloride (D5-Ns -) 1,000 mls @ 75 mls/hr IV ASDIR [facility] Last Admin: 07/12/20 06:00 Dose: 75 mls/hr Documented by: Memantine (Namenda -) 10 mg PO BID [facility] Last Admin: 07/11/20 21:15 Dose: 10 mg Documented by: Mirtazapine (Remeron -) 7.5 mg PO HS [facility] Last Admin: 07/11/20 21:15 Dose: 7.5 mg Documented by: Pantoprazole Sodium (Protonix -) 40 mg PO DAILY [facility] Last Admin: 07/11/20 10:54 Dose: 40 mg Documented by: Rivastigmine (Exelon Patch 9.5 Mg/24 Hours -) 1 each TD Q24H [facility] Last Admin: 07/11/20 10:55 Dose: 1 each Documented by: Tamsulosin HCl (Flomax -) 0.4 mg PO DAILY@0830 [facility] Last Admin: 07/11/20 10:54 Dose: 0.4 mg Documented by: Venlafaxine HCl (Effexor Xr -) 37.5 mg PO DAILY@0800 [facility] Last Admin: 07/11/20 10:55 Dose: 37.5 mg Documented by: - Objective Vital Signs: Vital Signs Temperature 99.3 F 07/12/20 06:00 Pulse Rate 54 L 07/12/20 06:00 Respiratory Rate 18 07/12/20 06:00 Blood Pressure 128/45 L 07/12/20 06:00 O2 Sat by Pulse Oximetry (%) 92 L 07/12/20 06:00 Constitutional: Yes: Well Nourished, No Distress, Calm Eyes: Yes: Conjunctiva Clear, EOM Intact HENT: Yes: Atraumatic, Normocephalic Neck: Yes: Supple, Trachea Midline Cardiovascular: Yes: Regular Rate and Rhythm Respiratory: Yes: Regular, CTA Bilaterally Gastrointestinal: Yes: Normal Bowel Sounds, Soft ...Rectal Exam: Yes: Deferred Genitourinary: Yes: WNL Breast(s): Yes: WNL Musculoskeletal: Yes: Muscle Weakness Extremities: Yes: WNL Edema: No Peripheral Pulses WNL: Yes Integumentary: Yes: Pressure Ulcer (Buttocks and sacrum) Neurological: Yes: Alert, Weakness ...Motor Strength: LUE (generalized muscle weakness of all extremities) Psychiatric: Yes: Alert Labs: CBC, BMP 07/11/20 08:20 07/11/20 08:20 INR, PTT INR 1.25 (0.83-1.09) H 07/08/20 19:40 - ....Imaging Other: Report Reviewed (lab data reviewed) Problem List - Problems (1) Dehydration Code(s): E86.0 - DEHYDRATION (2) Prerenal azotemia Code(s): R79.89 - OTHER SPECIFIED ABNORMAL FINDINGS OF BLOOD CHEMISTRY (3) Anemia Code(s): D64.9 - ANEMIA, UNSPECIFIED (4) Hyponatremia Code(s): E87.1 - HYPO-OSMOLALITY AND HYPONATREMIA (5) OLIVA (acute kidney injury) Code(s): N17.9 - ACUTE KIDNEY FAILURE, UNSPECIFIED (6) Fever Code(s): R50.9 - FEVER, UNSPECIFIED Qualifiers: Fever type: unspecified Qualified Code(s): R50.9 - Fever, unspecified (7) Systemic inflammatory response syndrome (SIRS) Code(s): R65.10 - SIRS OF NON-INFECTIOUS ORIGIN W/O ACUTE ORGAN DYSFUNCTION (8) UTI (urinary tract infection) Code(s): N39.0 - URINARY TRACT INFECTION, SITE NOT SPECIFIED Qualifiers: Urinary tract infection type: site unspecified Hematuria presence: without hematuria Qualified Code(s): N39.0 - Urinary tract infection, site not specified (9) Prostate cancer Code(s): C61 - MALIGNANT NEOPLASM OF PROSTATE (10) Bilateral hydronephrosis Code(s): N13.30 - UNSPECIFIED HYDRONEPHROSIS Assessment/Plan Assessment/plan: IV Zosyn for acute UTI, urosepsis and neutrophilic leukocytosis; SQ Lovenox and oral pantoprazole for DVT/GI prophylaxis, physical therapy for deconditioning; Rivastigmine for dementia; IV venofer for iron deficiency anemia; memantine for memory loss; mirtazapine and venlafaxine for depression; IV fluids for dehydration and prerenal azotemia; prostate cancer, mild bilateral hydronephrosis to follow up with Urologist on outpatient basis.
[2020-07-12 08:45] LABS: BASO % 1.1 % (0-2.0); EOS % 1.9 % (0-4.5); HEMATOCRIT 27.5 % (35.4-49); HEMOGLOBIN 8.9 GM/dL (11.7-16.9); LYMPH % 13.3 % (8-40); MCH 27.4 pg (25.7-33.7); MCHC 32.2 g/dl (32.0-35.9); MEAN CELL VOLUME 85.3 fl (80-96); MEAN PLT VOLUME 8.4 fl (7.5-11.1); MONO % 13.6 % (3.8-10.2); NEUT % 70.1 % (42.8-82.8); PLATELET COUNT 266 K/MM3 (134-434); RBC 3.23 M/mm3 (4.00-5.60); RDW 14.8 % (11.9-15.9)
[2020-07-12 10:02] LABS: ALBUMIN 2.1 g/dl (3.4-5.0); BILIRUBIN,TOTAL 0.4 mg/dL (0.2-1); BLOOD UREA NITROGEN 26.2 mg/dL (7-18); CALCIUM 8.2 mg/dL (8.5-10.1); CREATININE 1.9 mg/dL (0.55-1.3); POTASSIUM 4.7 mmol/L (3.5-5.1)
[2020-07-12] MEDS: ENOXAPARIN NA (PORCINE) 30 MG/0.3 ML DISP.SYRIN SQ SCH (10:42)
[2020-07-12] MEDS: ASCORBIC ACID 250 MG TABLET (FP) PO SCH ×2 (10:43→22:50)
[2020-07-12] MEDS: VENLAFAXINE HCL 37.5 MG E.R. CAPSULE PO SCH (10:43)
[2020-07-12] MEDS: PANTOPRAZOLE 40 MG TABLET PO SCH (10:43)
[2020-07-12] MEDS: MEMANTINE HCL 10 MG TABLET (FP) PO SCH ×2 (10:43→21:48)
[2020-07-12] MEDS: RIVASTIGMINE 9.5 MG/24 HOURS TRANSDERMAL PATCH TD SCH (10:44)
[2020-07-12 11:03] LABS: ANISOCYTOSIS 1+; MACROCYTOSIS 1+; PLATELET ESTIMATE NORMAL
--- NOTE | 2020-07-12 20:47 | PN ---
DATE OF VISIT: DATE OF DICTATION: 07/12/2020 The patient is an 80-year-old male who was admitted via the emergency room on July 08, 2020, with obstructive azotemia as well as urosepsis. A Lewis catheter was inserted, and a large amount of clear urine is drained. Patient is on Flomax 0.4 mg daily. Presently his BUN and creatinine are trending down. He is afebrile. His blood pressure is 128/45. His abdomen is soft. His Lewis is patent. His urine is clear. His white count is 10,800. His hemoglobin and hematocrit is 9.4 over 29.4. BUN and creatinine are 33.5 over 2.1. Will recommend repeating the renal ultrasound to see the resolution of the hydronephrosis. Will also discontinue Lewis in a.m. and give trial of voiding. Will follow with you. CATINA DUNN M.D. [id number]
[2020-07-12] MEDS: MIRTAZAPINE 15 MG TABLET (FP) PO SCH (21:48)
--- NOTE | 2020-07-12 23:19 | PN ---
Progress Note, Physician Chief Complaint: AWAKE IN BED OFFERS NO COMPLAINTS APPEARS COMFORTABLE, NON TOXIC REMAINS FEBRILE WBC IMPROVED BC (-) URINE C/S GNR - Current Medication List Current Medications: Active Medications Acetaminophen (Tylenol -) 650 mg PO Q6H PRN PRN Reason: FEVER Last Admin: 07/10/20 21:11 Dose: 650 mg Documented by: Ascorbic Acid (Vitamin C -) 250 mg PO BID [facility] Last Admin: 07/12/20 10:43 Dose: 250 mg Documented by: Enoxaparin Sodium (Lovenox -) 30 mg SQ DAILY [facility] Last Admin: 07/12/20 10:42 Dose: 30 mg Documented by: Piperacillin Sod/Tazobactam (Sod 3.375 gm/ Dextrose) 50 mls @ 100 mls/hr IVPB Q8H-IV [facility]; Protocol Last Admin: 07/12/20 17:01 Dose: 100 mls/hr Documented by: Dextrose/Sodium Chloride (D5-Ns -) 1,000 mls @ 75 mls/hr IV ASDIR [facility] Last Admin: 07/12/20 19:04 Dose: 75 mls/hr Documented by: Memantine (Namenda -) 10 mg PO BID [facility] Last Admin: 07/12/20 21:48 Dose: 10 mg Documented by: Mirtazapine (Remeron -) 7.5 mg PO HS [facility] Last Admin: 07/12/20 21:48 Dose: 7.5 mg Documented by: Pantoprazole Sodium (Protonix -) 40 mg PO DAILY [facility] Last Admin: 07/12/20 10:43 Dose: 40 mg Documented by: Rivastigmine (Exelon Patch 9.5 Mg/24 Hours -) 1 each TD Q24H [facility] Last Admin: 07/12/20 10:44 Dose: 1 each Documented by: Tamsulosin HCl (Flomax -) 0.4 mg PO DAILY@0830 [facility] Last Admin: 07/12/20 08:33 Dose: 0.4 mg Documented by: Venlafaxine HCl (Effexor Xr -) 37.5 mg PO DAILY@0800 [facility] Last Admin: 07/12/20 10:43 Dose: 37.5 mg Documented by: - Objective Vital Signs: Vital Signs Temperature 98.1 F 07/12/20 22:00 Pulse Rate 68 07/12/20 22:00 Respiratory Rate 18 07/12/20 22:00 Blood Pressure 108/58 L 07/12/20 22:00 O2 Sat by Pulse Oximetry (%) 98 07/12/20 22:00 Constitutional: Yes: No Distress Eyes: Yes: Conjunctiva Clear Cardiovascular: Yes: Regular Rate and Rhythm, S1, S2 Respiratory: Yes: Regular Gastrointestinal: Yes: Normal Bowel Sounds, Soft Labs: CBC, BMP 07/12/20 07:45 07/12/20 07:45 INR, PTT INR 1.25 (0.83-1.09) H 07/08/20 19:40 Assessment/Plan UTI R/O SEPSIS SECONDARY TO UTI FEVER LEUKOCYTOSIS AZOTEMIA AWAIT C/S CONTINUE EMPIRIC ZOSYN
[2020-07-13] MEDS ORDERED: PIPERACILLIN/TAZOBACTAM 3.375 GM VIAL IVPB ONE ×3 (00:23→17:34)
[2020-07-13] MEDS ORDERED: DEXTROSE 5%-WATER - 50 ML IVPB ONE ×3 (00:23→17:34)
[2020-07-13] MEDS: PIPERACILLIN/TAZOB 3.375 GM 3.375 GM in DEXTROSE 5%-WATER - 50 ML IVPB SCH ×3 (01:02→17:51)
[2020-07-13] MEDS: TAMSULOSIN HCL 0.4 MG CAP PO SCH (08:06)
[2020-07-13] MEDS: DEXTROSE 5%-NORMAL SALINE 1,000 ML IV SCH (08:15)
[2020-07-13 08:35] LABS: BASO % 1.1 % (0-2.0); EOS % 2.4 % (0-4.5); HEMATOCRIT 26.4 % (35.4-49); HEMOGLOBIN 8.7 GM/dL (11.7-16.9); MCH 28.1 pg (25.7-33.7); MCHC 32.8 g/dl (32.0-35.9); MEAN CELL VOLUME 85.5 fl (80-96); MEAN PLT VOLUME 8.5 fl (7.5-11.1); MONO % 10.8 % (3.8-10.2); NEUT % 69.7 % (42.8-82.8); PLATELET COUNT 267 K/MM3 (134-434); RBC 3.09 M/mm3 (4.00-5.60); RDW 14.6 % (11.9-15.9); WHITE BLOOD COUNT 10.1 K/mm3 (4.0-10.0)
[2020-07-13 09:02] LABS: BILIRUBIN,TOTAL 0.8 mg/dL (0.2-1); BLOOD UREA NITROGEN 21.8 mg/dL (7-18); CALCIUM 7.9 mg/dL (8.5-10.1); CREATININE 1.7 mg/dL (0.55-1.3); TOT PROT 5.6 g/dl (6.4-8.2)
--- NOTE | 2020-07-13 09:12 | PN ---
Progress Note, Physician Chief Complaint: Patient seen and examined at the bedside, no acute events from last night, afebrile. History of Present Illness: This 80 yr old w/m with PMH of prostate cancer, mild dementia, CAD, s/p stent, hx of Covid 19 infection 02/25 admitted via ER with an acute fever, UTI, urosepsis, neutrophilic leukocytosis, prerenal azotemia, dehydration, and iron deficiency anemia. - Current Medication List Current Medications: Active Medications Acetaminophen (Tylenol -) 650 mg PO Q6H PRN PRN Reason: FEVER Last Admin: 07/10/20 21:11 Dose: 650 mg Documented by: Ascorbic Acid (Vitamin C -) 250 mg PO BID [facility] Last Admin: 07/12/20 22:50 Dose: 250 mg Documented by: Enoxaparin Sodium (Lovenox -) 30 mg SQ DAILY [facility] Last Admin: 07/12/20 10:42 Dose: 30 mg Documented by: Piperacillin Sod/Tazobactam (Sod 3.375 gm/ Dextrose) 50 mls @ 100 mls/hr IVPB Q8H-IV [facility]; Protocol Last Admin: 07/13/20 01:02 Dose: 100 mls/hr Documented by: Dextrose/Sodium Chloride (D5-Ns -) 1,000 mls @ 50 mls/hr IV ASDIR [facility] Last Admin: 07/13/20 08:15 Dose: 50 mls/hr Documented by: Memantine (Namenda -) 10 mg PO BID [facility] Last Admin: 07/12/20 21:48 Dose: 10 mg Documented by: Mirtazapine (Remeron -) 7.5 mg PO HS [facility] Last Admin: 07/12/20 21:48 Dose: 7.5 mg Documented by: Pantoprazole Sodium (Protonix -) 40 mg PO DAILY [facility] Last Admin: 07/12/20 10:43 Dose: 40 mg Documented by: Rivastigmine (Exelon Patch 9.5 Mg/24 Hours -) 1 each TD Q24H [facility] Last Admin: 07/12/20 10:44 Dose: 1 each Documented by: Tamsulosin HCl (Flomax -) 0.4 mg PO DAILY@0830 [facility] Last Admin: 07/13/20 08:06 Dose: 0.4 mg Documented by: Venlafaxine HCl (Effexor Xr -) 37.5 mg PO DAILY@0800 [facility] Last Admin: 07/12/20 10:43 Dose: 37.5 mg Documented by: - Objective Vital Signs: Vital Signs Temperature 98.6 F 07/13/20 05:42 Pulse Rate 88 07/13/20 05:42 Respiratory Rate 18 07/13/20 05:42 Blood Pressure 121/63 07/13/20 05:42 O2 Sat by Pulse Oximetry (%) 96 07/13/20 05:42 Constitutional: Yes: Well Nourished, No Distress, Calm Eyes: Yes: Conjunctiva Clear, EOM Intact HENT: Yes: Atraumatic, Normocephalic Neck: Yes: Supple, Trachea Midline Cardiovascular: Yes: Regular Rate and Rhythm Respiratory: Yes: Regular, CTA Bilaterally Gastrointestinal: Yes: Normal Bowel Sounds, Soft ...Rectal Exam: Yes: Deferred Genitourinary: Yes: Other (mild bilateral hydronephrosis) Breast(s): Yes: WNL Musculoskeletal: Yes: Muscle Weakness Edema: No Peripheral Pulses WNL: Yes Integumentary: Yes: Pressure Ulcer (buttocks and sacrum) Neurological: Yes: Alert, Weakness ...Motor Strength: LUE (generalized muscle weakness of all extremities) Psychiatric: Yes: Alert Labs: CBC, BMP 07/13/20 07:45 07/13/20 07:45 INR, PTT INR 1.25 (0.83-1.09) H 07/08/20 19:40 - ....Imaging Other: Report Reviewed (lab data reviewed) Problem List - Problems (1) Dehydration Code(s): E86.0 - DEHYDRATION (2) Prerenal azotemia Code(s): R79.89 - OTHER SPECIFIED ABNORMAL FINDINGS OF BLOOD CHEMISTRY (3) Anemia Code(s): D64.9 - ANEMIA, UNSPECIFIED (4) Hyponatremia Code(s): E87.1 - HYPO-OSMOLALITY AND HYPONATREMIA (5) OLIVA (acute kidney injury) Code(s): N17.9 - ACUTE KIDNEY FAILURE, UNSPECIFIED (6) Fever Code(s): R50.9 - FEVER, UNSPECIFIED Qualifiers: Fever type: unspecified Qualified Code(s): R50.9 - Fever, unspecified (7) Systemic inflammatory response syndrome (SIRS) Code(s): R65.10 - SIRS OF NON-INFECTIOUS ORIGIN W/O ACUTE ORGAN DYSFUNCTION (8) UTI (urinary tract infection) Code(s): N39.0 - URINARY TRACT INFECTION, SITE NOT SPECIFIED Qualifiers: Urinary tract infection type: site unspecified Hematuria presence: without hematuria Qualified Code(s): N39.0 - Urinary tract infection, site not specified (9) Prostate cancer Code(s): C61 - MALIGNANT NEOPLASM OF PROSTATE (10) Bilateral hydronephrosis Code(s): N13.30 - UNSPECIFIED HYDRONEPHROSIS Assessment/Plan Assessment/plan: acute fever, UTI, urosepsis, dehydration, prerenal azotemia, iron deficiency anemia, mild bilateral hydronephrosis, prostate cancer, CAD, s/p stent, mild dementia, personal hx of Covid 19 infection; IV Zosyn for UTI/urosepsis; SQ Lovenox and oral pantoprazole for DVT/GI prophylaxis; physical therapy for deconditioning; Exelon patch for dementia; tamsulosin for obstructive uropathy; memantine for memory loss; mirtazapine and venlafaxine for depression; IV fluids for dehydration.
[2020-07-13] MEDS: MEMANTINE HCL 10 MG TABLET (FP) PO SCH ×2 (09:42→21:17)
[2020-07-13] MEDS: ASCORBIC ACID 250 MG TABLET (FP) PO SCH ×2 (09:42→21:17)
[2020-07-13] MEDS: VENLAFAXINE HCL 37.5 MG E.R. CAPSULE PO SCH (09:42)
[2020-07-13] MEDS: PANTOPRAZOLE 40 MG TABLET PO SCH (09:42)
[2020-07-13] MEDS: ENOXAPARIN NA (PORCINE) 30 MG/0.3 ML DISP.SYRIN SQ SCH (09:43)
[2020-07-13] MEDS: RIVASTIGMINE 9.5 MG/24 HOURS TRANSDERMAL PATCH TD SCH (09:43)
[2020-07-13] MEDS ORDERED: PT OWN MED DRAWER 7, Y5N ONE (20:48)
[2020-07-13] MEDS: MIRTAZAPINE 15 MG TABLET (FP) PO SCH (21:17)
[2020-07-14] MEDS ORDERED: PIPERACILLIN/TAZOBACTAM 3.375 GM VIAL IVPB ONE ×3 (01:52→19:09)
[2020-07-14] MEDS ORDERED: DEXTROSE 5%-WATER - 50 ML IVPB ONE ×3 (01:52→19:09)
[2020-07-14] MEDS: PIPERACILLIN/TAZOB 3.375 GM 3.375 GM in DEXTROSE 5%-WATER - 50 ML IVPB SCH ×3 (02:18→19:30)
[2020-07-14 07:52] LABS: BASO % 0.8 % (0-2.0); EOS % 2.8 % (0-4.5); HEMATOCRIT 28.8 % (35.4-49); HEMOGLOBIN 9.3 GM/dL (11.7-16.9); LYMPH % 13.9 % (8-40); MCH 27.7 pg (25.7-33.7); MCHC 32.2 g/dl (32.0-35.9); MEAN CELL VOLUME 86.1 fl (80-96); MEAN PLT VOLUME 8.4 fl (7.5-11.1); MONO % 8.9 % (3.8-10.2); NEUT % 73.6 % (42.8-82.8); PLATELET COUNT 289 K/MM3 (134-434); RBC 3.34 M/mm3 (4.00-5.60); WHITE BLOOD COUNT 10.9 K/mm3 (4.0-10.0)
[2020-07-14 08:24] LABS: BILIRUBIN,TOTAL 0.4 mg/dL (0.2-1); BLOOD UREA NITROGEN 21.4 mg/dL (7-18); CREATININE 1.7 mg/dL (0.55-1.3); POTASSIUM 4.2 mmol/L (3.5-5.1); TOT PROT 5.6 g/dl (6.4-8.2)
--- NOTE | 2020-07-14 08:34 | PN ---
Progress Note, Physician Chief Complaint: Patient seen and examined at the bedside, no acute events from last night, afebrile. History of Present Illness: This 80 yr old w/m with PMH of prostate cancer, mild dementia, personal hx of Covid 19 infection in 02/25, CAD, s/p stent admitted via ER with an acute fever, UTI, urosepsis, dehydration, prerenal azotemia, and iron deficiency anemia. - Current Medication List Current Medications: Active Medications Acetaminophen (Tylenol -) 650 mg PO Q6H PRN PRN Reason: FEVER Last Admin: 07/10/20 21:11 Dose: 650 mg Documented by: Ascorbic Acid (Vitamin C -) 250 mg PO BID [facility] Last Admin: 07/13/20 21:17 Dose: 250 mg Documented by: Enoxaparin Sodium (Lovenox -) 30 mg SQ DAILY [facility] Last Admin: 07/13/20 09:43 Dose: 30 mg Documented by: Piperacillin Sod/Tazobactam (Sod 3.375 gm/ Dextrose) 50 mls @ 100 mls/hr IVPB Q8H-IV [facility]; Protocol Last Admin: 07/14/20 02:18 Dose: 100 mls/hr Documented by: Dextrose/Sodium Chloride (D5-Ns -) 1,000 mls @ 50 mls/hr IV ASDIR [facility] Last Admin: 07/13/20 08:15 Dose: 50 mls/hr Documented by: Memantine (Namenda -) 10 mg PO BID [facility] Last Admin: 07/13/20 21:17 Dose: 10 mg Documented by: Mirtazapine (Remeron -) 7.5 mg PO HS [facility] Last Admin: 07/13/20 21:17 Dose: 7.5 mg Documented by: Pantoprazole Sodium (Protonix -) 40 mg PO DAILY [facility] Last Admin: 07/13/20 09:42 Dose: 40 mg Documented by: Rivastigmine (Exelon Patch 9.5 Mg/24 Hours -) 1 each TD Q24H [facility] Last Admin: 07/13/20 09:43 Dose: 1 each Documented by: Tamsulosin HCl (Flomax -) 0.4 mg PO DAILY@0830 [facility] Last Admin: 07/13/20 08:06 Dose: 0.4 mg Documented by: Venlafaxine HCl (Effexor Xr -) 37.5 mg PO DAILY@0800 [facility] Last Admin: 07/13/20 09:42 Dose: 37.5 mg Documented by: - Objective Vital Signs: Vital Signs Temperature 98.8 F 07/14/20 06:00 Pulse Rate 60 07/14/20 06:00 Respiratory Rate 18 07/14/20 06:00 Blood Pressure 132/65 07/14/20 06:00 O2 Sat by Pulse Oximetry (%) 96 07/14/20 06:00 Constitutional: Yes: Well Nourished, No Distress, Calm Eyes: Yes: Conjunctiva Clear, EOM Intact HENT: Yes: Atraumatic, Normocephalic Neck: Yes: Supple, Trachea Midline Cardiovascular: Yes: Regular Rate and Rhythm Respiratory: Yes: Regular, CTA Bilaterally Gastrointestinal: Yes: Normal Bowel Sounds, Soft ...Rectal Exam: Yes: Deferred Genitourinary: Yes: WNL Breast(s): Yes: WNL Musculoskeletal: Yes: Muscle Weakness Extremities: Yes: WNL Edema: No Peripheral Pulses WNL: Yes Integumentary: Yes: Pressure Ulcer (buttocks and sacrum) Neurological: Yes: Alert, Unsteady Gait, Weakness ...Motor Strength: LUE (generalized muscle weakness of all extremities) Psychiatric: Yes: Alert Labs: CBC, BMP 07/14/20 06:45 07/14/20 06:45 INR, PTT INR 1.25 (0.83-1.09) H 07/08/20 19:40 - ....Imaging Other: Report Reviewed (lab data reviewed) Problem List - Problems (1) Dehydration Code(s): E86.0 - DEHYDRATION (2) Prerenal azotemia Code(s): R79.89 - OTHER SPECIFIED ABNORMAL FINDINGS OF BLOOD CHEMISTRY (3) Anemia Code(s): D64.9 - ANEMIA, UNSPECIFIED (4) Hyponatremia Code(s): E87.1 - HYPO-OSMOLALITY AND HYPONATREMIA (5) LOIVA (acute kidney injury) Code(s): N17.9 - ACUTE KIDNEY FAILURE, UNSPECIFIED (6) Fever Code(s): R50.9 - FEVER, UNSPECIFIED Qualifiers: Fever type: unspecified Qualified Code(s): R50.9 - Fever, unspecified (7) Systemic inflammatory response syndrome (SIRS) Code(s): R65.10 - SIRS OF NON-INFECTIOUS ORIGIN W/O ACUTE ORGAN DYSFUNCTION (8) UTI (urinary tract infection) Code(s): N39.0 - URINARY TRACT INFECTION, SITE NOT SPECIFIED Qualifiers: Urinary tract infection type: site unspecified Hematuria presence: without hematuria Qualified Code(s): N39.0 - Urinary tract infection, site not specified (9) Prostate cancer Code(s): C61 - MALIGNANT NEOPLASM OF PROSTATE (10) Bilateral hydronephrosis Code(s): N13.30 - UNSPECIFIED HYDRONEPHROSIS Assessment/Plan Assessment/plan: acute fever, UTI, urosepsis, dehydration, prerenal azotemia, mild bilateral hydrohephrosis, prostate cancer, mild dementia, s/p Covid 19 infection 02/25, neutrophilic leukocytosis, iron deficiency anemia; IV venofer for iron deficiency anemia, SQ Lovenox and oral pantoprazole for DVT/GI prophylaxis, IV Zosyn for UTI, urosepsis; Rivastigmine for dementia, tamsulosin for BPH, memantine for memory loss, mirtazapine and venlafaxine for depression, IV fluids for dehydration, physical therapy for deconditioning.
[2020-07-14] MEDS ORDERED: PT OWN MED DRAWER 7, Y5N ONE ×2 (10:11→21:48)
[2020-07-14] MEDS: DEXTROSE 5%-NORMAL SALINE 1,000 ML IV SCH (10:22)
[2020-07-14] MEDS: VENLAFAXINE HCL 37.5 MG E.R. CAPSULE PO SCH (10:22)
[2020-07-14] MEDS: ASCORBIC ACID 250 MG TABLET (FP) PO SCH ×2 (10:23→22:09)
[2020-07-14] MEDS: MEMANTINE HCL 10 MG TABLET (FP) PO SCH ×2 (10:23→22:09)
[2020-07-14] MEDS: RIVASTIGMINE 9.5 MG/24 HOURS TRANSDERMAL PATCH TD SCH (10:23)
[2020-07-14] MEDS: TAMSULOSIN HCL 0.4 MG CAP PO SCH (10:23)
[2020-07-14] MEDS: PANTOPRAZOLE 40 MG TABLET PO SCH (10:23)
[2020-07-14] MEDS: ENOXAPARIN NA (PORCINE) 30 MG/0.3 ML DISP.SYRIN SQ SCH (10:24)
[2020-07-14] MEDS ORDERED: TAMSULOSIN HCL 0.4 MG CAP PO SCH (19:14)
[2020-07-14] MEDS: MIRTAZAPINE 15 MG TABLET (FP) PO SCH (22:09)
[2020-07-15] MEDS ORDERED: DEXTROSE 5%-WATER - 50 ML IVPB ONE ×3 (02:56→17:33)
[2020-07-15] MEDS ORDERED: PIPERACILLIN/TAZOBACTAM 3.375 GM VIAL IVPB ONE ×3 (02:56→17:33)
[2020-07-15] MEDS: PIPERACILLIN/TAZOB 3.375 GM 3.375 GM in DEXTROSE 5%-WATER - 50 ML IVPB SCH ×3 (02:58→17:47)
--- NOTE | 2020-07-15 08:58 | PN ---
Progress Note, Physician Chief Complaint: Patient seen and examined at the bedside, no acute events from last night, afebrile. History of Present Illness: This 80 yr old w/m with PMH of prostate cancer, CAD, s/p stent, mild dementia admitted via ER with an acute fever, UTI, urosepsis, neutrophilic leukocytosis, prerenal azotemia, dehydration, and iron deficiency anemia. - Current Medication List Current Medications: Active Medications Acetaminophen (Tylenol -) 650 mg PO Q6H PRN PRN Reason: FEVER Last Admin: 07/10/20 21:11 Dose: 650 mg Documented by: Ascorbic Acid (Vitamin C -) 250 mg PO BID [facility] Last Admin: 07/14/20 22:09 Dose: 250 mg Documented by: Enoxaparin Sodium (Lovenox -) 30 mg SQ DAILY [facility] Last Admin: 07/14/20 10:24 Dose: 30 mg Documented by: Piperacillin Sod/Tazobactam (Sod 3.375 gm/ Dextrose) 50 mls @ 100 mls/hr IVPB Q8H-IV [facility]; Protocol Last Admin: 07/15/20 02:58 Dose: 100 mls/hr Documented by: Dextrose/Sodium Chloride (D5-Ns -) 1,000 mls @ 50 mls/hr IV ASDIR [facility] 234 [facility]S [facility] Last Admin: 07/14/20 10:22 Dose: 50 mls/hr Documented by: Memantine (Namenda -) 10 mg PO BID [facility] Last Admin: 07/14/20 22:09 Dose: 10 mg Documented by: Mirtazapine (Remeron -) 7.5 mg PO HS [facility] Last Admin: 07/14/20 22:09 Dose: 7.5 mg Documented by: Pantoprazole Sodium (Protonix -) 40 mg PO DAILY [facility] Last Admin: 07/14/20 10:23 Dose: 40 mg Documented by: Rivastigmine (Exelon Patch 9.5 Mg/24 Hours -) 1 each TD Q24H [facility] Last Admin: 07/14/20 10:23 Dose: 1 each Documented by: Tamsulosin HCl (Flomax -) 0.8 mg PO DAILY@0830 [facility] 234 [facility]S [facility] Venlafaxine HCl (Effexor Xr -) 37.5 mg PO DAILY@0800 [facility] Last Admin: 07/14/20 10:22 Dose: 37.5 mg Documented by: - Objective Vital Signs: Vital Signs Temperature 98.8 F 07/15/20 06:00 Pulse Rate 55 L 07/15/20 06:00 Respiratory Rate 18 07/15/20 06:00 Blood Pressure 151/74 07/15/20 06:00 O2 Sat by Pulse Oximetry (%) 98 07/15/20 06:00 Constitutional: Yes: Well Nourished, No Distress, Calm Eyes: Yes: Conjunctiva Clear, EOM Intact HENT: Yes: Atraumatic, Normocephalic Neck: Yes: Supple, Trachea Midline Cardiovascular: Yes: Regular Rate and Rhythm Respiratory: Yes: Regular, CTA Bilaterally Gastrointestinal: Yes: Normal Bowel Sounds, Soft ...Rectal Exam: Yes: Deferred Genitourinary: Yes: Other (left mild hydronephrosis) Breast(s): Yes: WNL Musculoskeletal: Yes: Muscle Weakness Extremities: Yes: WNL Edema: No Peripheral Pulses WNL: Yes Integumentary: Yes: Pressure Ulcer (buttocks and sacrum) Neurological: Yes: Alert, Unsteady Gait, Weakness ...Motor Strength: LLE (muscle weakness), RLE (muscle weakness) Psychiatric: Yes: Alert Labs: CBC, BMP 07/14/20 06:45 INR, PTT INR 1.25 (0.83-1.09) H 07/08/20 19:40 - ....Imaging Other: Report Reviewed (lab data reviewed) Problem List - Problems (1) Dehydration Code(s): E86.0 - DEHYDRATION (2) Prerenal azotemia Code(s): R79.89 - OTHER SPECIFIED ABNORMAL FINDINGS OF BLOOD CHEMISTRY (3) Anemia Code(s): D64.9 - ANEMIA, UNSPECIFIED (4) Hyponatremia Code(s): E87.1 - HYPO-OSMOLALITY AND HYPONATREMIA (5) OLIVA (acute kidney injury) Code(s): N17.9 - ACUTE KIDNEY FAILURE, UNSPECIFIED (6) Fever Code(s): R50.9 - FEVER, UNSPECIFIED Qualifiers: Fever type: unspecified Qualified Code(s): R50.9 - Fever, unspecified (7) Systemic inflammatory response syndrome (SIRS) Code(s): R65.10 - SIRS OF NON-INFECTIOUS ORIGIN W/O ACUTE ORGAN DYSFUNCTION (8) UTI (urinary tract infection) Code(s): N39.0 - URINARY TRACT INFECTION, SITE NOT SPECIFIED Qualifiers: Urinary tract infection type: site unspecified Hematuria presence: without hematuria Qualified Code(s): N39.0 - Urinary tract infection, site not specified (9) Prostate cancer Code(s): C61 - MALIGNANT NEOPLASM OF PROSTATE (10) Bilateral hydronephrosis Code(s): N13.30 - UNSPECIFIED HYDRONEPHROSIS Assessment/Plan Assessment/plan: IV Zosyn for UTI, urosepsis; rivastigmine patch for dementia; tamsulosin for BPH; SQ Lovenox and oral pantoprazole for DVT/GI prophylaxis; memantine for memory loss; mirtazapine and venlafaxine for depression; physical therapy for deconditioning; may need TUR.
[2020-07-15 09:09] LABS: BILIRUBIN,TOTAL 0.4 mg/dL (0.2-1); BLOOD UREA NITROGEN 19.3 mg/dL (7-18); CREATININE 1.8 mg/dL (0.55-1.3); POTASSIUM 4.1 mmol/L (3.5-5.1); TOT PROT 5.9 g/dl (6.4-8.2)
--- NOTE | 2020-07-15 09:14 | PN ---
DATE OF VISIT: DATE OF DICTATION: 07/14/2020 Patient is an 80-year-old male who presented with obstructive azotemia. Lewis catheter has been in place. The patient does have history of prostate cancer and mild dementia. He was COVID positive in February 2020; has coronary artery disease, status post angioplasty with stenting. The patient had a post Lewis renal ultrasound and this revealed a questionable stent in the right kidney without evidence of hydronephrosis, a definite stent in the left kidney with mild left hydronephrosis. The patient's urine culture revealed gram-negative rods. His white count presently is 10.9. Hemoglobin is 9.9 and hematocrit 28.8. BUN is 21.4 and creatinine 1.7. The patient's vital signs are stable at a temperature of 98.8 and a blood pressure of 132/65. Will recommend a repeat trial at voiding. If patient fails, will recommend replacing the Lewis catheter and scheduling the patient for a TUR of the prostate. Will follow with you. Elham [id number]
[2020-07-15] MEDS: TAMSULOSIN HCL 0.4 MG CAP PO SCH (10:13)
[2020-07-15] MEDS: VENLAFAXINE HCL 37.5 MG E.R. CAPSULE PO SCH (10:13)
[2020-07-15] MEDS: ASCORBIC ACID 250 MG TABLET (FP) PO SCH ×2 (10:13→21:30)
[2020-07-15] MEDS: MEMANTINE HCL 10 MG TABLET (FP) PO SCH ×2 (10:13→21:29)
[2020-07-15] MEDS: PANTOPRAZOLE 40 MG TABLET PO SCH (10:13)
[2020-07-15] MEDS: RIVASTIGMINE 9.5 MG/24 HOURS TRANSDERMAL PATCH TD SCH (10:21)
[2020-07-15] MEDS: ENOXAPARIN NA (PORCINE) 30 MG/0.3 ML DISP.SYRIN SQ SCH (10:21)
[2020-07-15 12:21] LABS: BASO % 1.5 % (0-2.0); EOS % 3.9 % (0-4.5); HEMATOCRIT 29.4 % (35.4-49); HEMOGLOBIN 9.5 GM/dL (11.7-16.9); LYMPH % 17.1 % (8-40); MCH 27.6 pg (25.7-33.7); MCHC 32.3 g/dl (32.0-35.9); MEAN CELL VOLUME 85.4 fl (80-96); MEAN PLT VOLUME 8.3 fl (7.5-11.1); MONO % 6.6 % (3.8-10.2); NEUT % 70.9 % (42.8-82.8); PLATELET COUNT 368 K/MM3 (134-434); RBC 3.45 M/mm3 (4.00-5.60); RDW 15.1 % (11.9-15.9); WHITE BLOOD COUNT 8.7 K/mm3 (4.0-10.0)
[2020-07-15] MEDS: MIRTAZAPINE 15 MG TABLET (FP) PO SCH (21:29)
[2020-07-16] MEDS ORDERED: PIPERACILLIN/TAZOBACTAM 3.375 GM VIAL IVPB ONE ×3 (00:16→18:02)
[2020-07-16] MEDS: PIPERACILLIN/TAZOB 3.375 GM 3.375 GM in DEXTROSE 5%-WATER - 50 ML IVPB SCH ×3 (01:00→18:17)
--- NOTE | 2020-07-16 04:58 | DS ---
Physical Examination Vital Signs: Vital Signs Temperature 97.9 F 07/16/20 02:55 Pulse Rate 60 07/16/20 02:55 Respiratory Rate 18 07/16/20 02:55 Blood Pressure 158/79 07/16/20 02:55 O2 Sat by Pulse Oximetry (%) 98 07/16/20 02:55 Constitutional: Yes: Well Nourished, No Distress, Calm Eyes: Yes: Conjunctiva Clear, EOM Intact HENT: Yes: Atraumatic, Normocephalic Neck: Yes: Supple, Trachea Midline Cardiovascular: Yes: Regular Rate and Rhythm Respiratory: Yes: Regular, CTA Bilaterally Gastrointestinal: Yes: Normal Bowel Sounds, Soft ...Rectal Exam: Yes: Deferred Renal/: Yes: Incontinence, Other (prostate cancer) Breast(s): Yes: WNL Musculoskeletal: Yes: Muscle Weakness Extremities: Yes: WNL Edema: No Peripheral Pulses WNL: Yes Integumentary: Yes: Pressure Ulcer (buttocks and sacrum) Neurological: Yes: Alert, Weakness ...Motor Strength: LLE (muscle weakness), RLE (muscle weakness) Psychiatric: Yes: Alert Labs: CBC, BMP 07/15/20 11:35 07/15/20 07:50 Discharge Summary Problems reviewed: Yes Reason For Visit: UTI,FEVER,SYSTEMIC INFLAMMATORY RESPONSE SYNDROME Current Active Problems OLIVA (acute kidney injury) (Acute) Anemia (Acute) Bilateral hydronephrosis (Acute) Dehydration (Acute) Fever (Acute) Hyponatremia (Acute) Prerenal azotemia (Acute) Prostate cancer (Acute) Systemic inflammatory response syndrome (SIRS) (Acute) UTI (urinary tract infection) (Acute) Condition: Improved - Instructions Diet, Activity, Other Instructions: Continue present meds. Activity as tolerated. Transfer to [facility]. Follow up with Dr. Hooks within one week. Total time spent over 30 minutes. Referrals: Pamela Hooks [Primary Care Provider] - - Home Medications Comprehensive Discharge Medication List: Ambulatory Orders Acetaminophen 325 mg PO BID 07/08/20 Ascorbic Acid [Vitamin C] 250 mg PO BID 07/08/20 Aspirin 81 mg PO DAILY 07/08/20 Desvenlafaxine Succinate [Desvenlafaxine Succinate ER] 25 mg PO DAILY 07/08/20 Memantine HCl [Memantine HCl ER] 28 mg PO DAILY 07/08/20 Mirtazapine 7.5 mg PO HS 07/08/20 Rivastigmine 1 each TD DAILY 07/08/20 Silodosin 4 mg PO DAILY 07/08/20 Tamsulosin HCl 0.4 mg PO DAILY 07/08/20
[2020-07-16] MEDS ORDERED: PT OWN MED DRAWER 7, Y5N ONE ×3 (08:40→22:16)
[2020-07-16] MEDS: VENLAFAXINE HCL 37.5 MG E.R. CAPSULE PO SCH (09:22)
[2020-07-16] MEDS: TAMSULOSIN HCL 0.4 MG CAP PO SCH (09:23)
[2020-07-16] MEDS ORDERED: DEXTROSE 5%-WATER - 50 ML IVPB ONE ×2 (10:01→18:02)
[2020-07-16] MEDS: ENOXAPARIN NA (PORCINE) 30 MG/0.3 ML DISP.SYRIN SQ SCH (10:14)
[2020-07-16] MEDS: MEMANTINE HCL 10 MG TABLET (FP) PO SCH ×2 (10:14→23:01)
[2020-07-16] MEDS: PANTOPRAZOLE 40 MG TABLET PO SCH (10:14)
[2020-07-16] MEDS: RIVASTIGMINE 9.5 MG/24 HOURS TRANSDERMAL PATCH TD SCH (10:14)
[2020-07-16] MEDS: ASCORBIC ACID 250 MG TABLET (FP) PO SCH ×2 (10:15→23:58)
--- NOTE | 2020-07-16 16:10 | PN ---
Progress Note, Physician Chief Complaint: Patient seen and examined at the bedside, no acute events from last night, afebrile. History of Present Illness: This 80 yr old w/m with PMH of prostate cancer, CAD, s/p stent, mild dementia, hx of Covid 19 infection admitted via ER with an acute fever, UTI, urosepsis, dehydration, prerenal azotemia, neutrophilic leukocytosis, and iron deficiency anemia. - Current Medication List Current Medications: Active Medications Acetaminophen (Tylenol -) 650 mg PO Q6H PRN PRN Reason: FEVER Last Admin: 07/10/20 21:11 Dose: 650 mg Documented by: Ascorbic Acid (Vitamin C -) 250 mg PO BID [facility] Last Admin: 07/16/20 10:15 Dose: 250 mg Documented by: Enoxaparin Sodium (Lovenox -) 30 mg SQ DAILY [facility] Last Admin: 07/16/20 10:14 Dose: 30 mg Documented by: Piperacillin Sod/Tazobactam (Sod 3.375 gm/ Dextrose) 50 mls @ 100 mls/hr IVPB Q8H-IV [facility]; Protocol Last Admin: 07/16/20 10:12 Dose: 100 mls/hr Documented by: Memantine (Namenda -) 10 mg PO BID [facility] Last Admin: 07/16/20 10:14 Dose: 10 mg Documented by: Mirtazapine (Remeron -) 7.5 mg PO HS [facility] Last Admin: 07/15/20 21:29 Dose: 7.5 mg Documented by: Pantoprazole Sodium (Protonix -) 40 mg PO DAILY [facility] Last Admin: 07/16/20 10:14 Dose: 40 mg Documented by: Rivastigmine (Exelon Patch 9.5 Mg/24 Hours -) 1 each TD Q24H [facility] Last Admin: 07/16/20 10:14 Dose: 1 each Documented by: Tamsulosin HCl (Flomax -) 0.8 mg PO DAILY@0830 [facility] Last Admin: 07/16/20 09:23 Dose: 0.8 mg Documented by: Venlafaxine HCl (Effexor Xr -) 37.5 mg PO DAILY@0800 [facility] Last Admin: 07/16/20 09:22 Dose: 37.5 mg Documented by: - Objective Vital Signs: Vital Signs Temperature 97.6 F 07/16/20 14:00 Pulse Rate 65 09/08/20 14:00 Respiratory Rate 18 07/16/20 14:00 Blood Pressure 134/67 07/16/20 14:00 O2 Sat by Pulse Oximetry (%) 98 07/16/20 14:00 Constitutional: Yes: Well Nourished, No Distress, Calm Eyes: Yes: Conjunctiva Clear, EOM Intact HENT: Yes: Atraumatic, Normocephalic Neck: Yes: Supple, Trachea Midline Respiratory: Yes: Regular, CTA Bilaterally Gastrointestinal: Yes: Normal Bowel Sounds, Soft ...Rectal Exam: Yes: Deferred Genitourinary: Yes: Other (left mild hydronephrosis) Breast(s): Yes: WNL Musculoskeletal: Yes: WNL Extremities: Yes: WNL Edema: No Peripheral Pulses WNL: Yes Integumentary: Yes: Pressure Ulcer (buttocks and sacrum) Neurological: Yes: Alert ...Motor Strength: WNL Psychiatric: Yes: Alert Labs: CBC, BMP 07/15/20 11:35 07/15/20 07:50 INR, PTT INR 1.25 (0.83-1.09) H 07/08/20 19:40 - ....Imaging Other: Report Reviewed (lab data reviewed) Problem List - Problems (1) Dehydration Code(s): E86.0 - DEHYDRATION (2) Prerenal azotemia Code(s): R79.89 - OTHER SPECIFIED ABNORMAL FINDINGS OF BLOOD CHEMISTRY (3) Anemia Code(s): D64.9 - ANEMIA, UNSPECIFIED (4) Hyponatremia Code(s): E87.1 - HYPO-OSMOLALITY AND HYPONATREMIA (5) OLIVA (acute kidney injury) Code(s): N17.9 - ACUTE KIDNEY FAILURE, UNSPECIFIED (6) Fever Code(s): R50.9 - FEVER, UNSPECIFIED Qualifiers: Fever type: unspecified Qualified Code(s): R50.9 - Fever, unspecified (7) Systemic inflammatory response syndrome (SIRS) Code(s): R65.10 - SIRS OF NON-INFECTIOUS ORIGIN W/O ACUTE ORGAN DYSFUNCTION (8) UTI (urinary tract infection) Code(s): N39.0 - URINARY TRACT INFECTION, SITE NOT SPECIFIED Qualifiers: Urinary tract infection type: site unspecified Hematuria presence: without hematuria Qualified Code(s): N39.0 - Urinary tract infection, site not specified (9) Prostate cancer Code(s): C61 - MALIGNANT NEOPLASM OF PROSTATE (10) Bilateral hydronephrosis Code(s): N13.30 - UNSPECIFIED HYDRONEPHROSIS Assessment/Plan Assessment/plan: acute fever, UTI, urosepsis, neutrophilic leukocytosis, prerenal azotemia, dehydration, iron deficiency anemia, prostate cancer, CAD, s/p stent, mild dementia, left mild hydronephrosis; IV Zosyn for UTI, urosepsis; SQ Lovenox and oral pantoprazole for DVT/GI prophylaxis; physical therapy for deconditioning; IV venofer for iron deficiency anemia; rivastigmine patch for dementia; memantine for memory loss; tamsulosin for BPH; mirtazapine and venlafaxifine for depression; scheduled for TUR tomorrow; patient is medically cleared for surgery.
--- NOTE | 2020-07-16 17:10 | CONS ---
DATE OF CONSULTATION: DATE OF DICTATION: 07/16/2020 HISTORY OF PRESENT ILLNESS: The patient is an 80-year-old male who presented with obstructive azotemia. He does have history of prostate cancer and coronary artery disease. CAT scan and an ultrasound reveals bilateral hydronephrosis, right greater than left. There appears to be a right Double J stent. The obstructive azotemia resolved with a BUN of 21 and a creatinine of 1.7. The hydronephrosis remains, and a right Double J stent is still there. Will schedule patient a cystoscopy, removal of Double J stent, right retrograde pyelogram, possible reinsertion of stent or possible permanent removal of the stent. If the prostate is obstructing, will also vaporize the bladder neck. Elham [id number]
--- NOTE | 2020-07-16 22:42 | PN ---
Progress Note, Physician Chief Complaint: AWAKE IN BED OFFERS NO COMPLAINTS APPEARS COMFORTABLE, NON TOXIC REMAINS FEBRILE WBC IMPROVED BC (-) URINE C/S GNR - Current Medication List Current Medications: Active Medications Acetaminophen (Tylenol -) 650 mg PO Q6H PRN PRN Reason: FEVER Last Admin: 07/10/20 21:11 Dose: 650 mg Documented by: Ascorbic Acid (Vitamin C -) 250 mg PO BID [facility] Last Admin: 07/16/20 10:15 Dose: 250 mg Documented by: Enoxaparin Sodium (Lovenox -) 30 mg SQ DAILY [facility] Last Admin: 07/16/20 10:14 Dose: 30 mg Documented by: Piperacillin Sod/Tazobactam (Sod 3.375 gm/ Dextrose) 50 mls @ 100 mls/hr IVPB Q8H-IV [facility]; Protocol Last Admin: 07/16/20 18:17 Dose: 100 mls/hr Documented by: Memantine (Namenda -) 10 mg PO BID [facility] Last Admin: 07/16/20 10:14 Dose: 10 mg Documented by: Mirtazapine (Remeron -) 7.5 mg PO HS [facility] Last Admin: 07/15/20 21:29 Dose: 7.5 mg Documented by: Pantoprazole Sodium (Protonix -) 40 mg PO DAILY [facility] Last Admin: 07/16/20 10:14 Dose: 40 mg Documented by: Rivastigmine (Exelon Patch 9.5 Mg/24 Hours -) 1 each TD Q24H [facility] Last Admin: 07/16/20 10:14 Dose: 1 each Documented by: Tamsulosin HCl (Flomax -) 0.8 mg PO DAILY@0830 [facility] Last Admin: 07/16/20 09:23 Dose: 0.8 mg Documented by: Venlafaxine HCl (Effexor Xr -) 37.5 mg PO DAILY@0800 [facility] Last Admin: 07/16/20 09:22 Dose: 37.5 mg Documented by: - Objective Vital Signs: Vital Signs Temperature 97.8 F 07/16/20 20:56 Pulse Rate 85 07/16/20 20:56 Respiratory Rate 16 07/16/20 20:56 Blood Pressure 128/73 07/16/20 20:56 O2 Sat by Pulse Oximetry (%) 98 07/16/20 20:56 Constitutional: Yes: No Distress Eyes: Yes: Conjunctiva Clear Cardiovascular: Yes: Regular Rate and Rhythm, S1, S2 Respiratory: Yes: CTA Bilaterally Edema: No Labs: CBC, BMP 07/15/20 11:35 07/15/20 07:50 INR, PTT INR 1.25 (0.83-1.09) H 07/08/20 19:40 Assessment/Plan UTI R/O SEPSIS SECONDARY TO UTI FEVER resolved LEUKOCYTOSIS resolved AZOTEMIA SUBSTITUTE PO AUGMENTIN X 48HR
[2020-07-16] MEDS: MIRTAZAPINE 15 MG TABLET (FP) PO SCH (23:01)
--- NOTE | 2020-07-17 02:07 | PN ---
Progress Note, Physician Chief Complaint: Patient seen and examined at the bedside, no acute events from last night, afebrile. History of Present Illness: This 80 yr old w/m with PMH of prostate cancer, CAD, s/p stent, mild dementia, hx of Covid 19 infection admitted via ER with an acute fever, UTI, urosepsis, prerenal azotemia, dehydration, neutrophilic leukocytosis and iron deficiency anemia. - Current Medication List Current Medications: Active Medications Acetaminophen (Tylenol -) 650 mg PO Q6H PRN PRN Reason: FEVER Last Admin: 07/10/20 21:11 Dose: 650 mg Documented by: Ascorbic Acid (Vitamin C -) 250 mg PO BID [facility] Last Admin: 07/16/20 23:58 Dose: 250 mg Documented by: Enoxaparin Sodium (Lovenox -) 30 mg SQ DAILY [facility] Last Admin: 07/16/20 10:14 Dose: 30 mg Documented by: Piperacillin Sod/Tazobactam (Sod 3.375 gm/ Dextrose) 50 mls @ 100 mls/hr IVPB Q8H-IV [facility]; Protocol Last Admin: 07/16/20 18:17 Dose: 100 mls/hr Documented by: Memantine (Namenda -) 10 mg PO BID [facility] Last Admin: 07/16/20 23:01 Dose: 10 mg Documented by: Mirtazapine (Remeron -) 7.5 mg PO HS [facility] Last Admin: 07/16/20 23:01 Dose: 7.5 mg Documented by: Pantoprazole Sodium (Protonix -) 40 mg PO DAILY [facility] Last Admin: 07/16/20 10:14 Dose: 40 mg Documented by: Rivastigmine (Exelon Patch 9.5 Mg/24 Hours -) 1 each TD Q24H [facility] Last Admin: 07/16/20 10:14 Dose: 1 each Documented by: Tamsulosin HCl (Flomax -) 0.8 mg PO DAILY@0830 [facility] Last Admin: 07/16/20 09:23 Dose: 0.8 mg Documented by: Venlafaxine HCl (Effexor Xr -) 37.5 mg PO DAILY@0800 [facility] Last Admin: 07/16/20 09:22 Dose: 37.5 mg Documented by: - Objective Vital Signs: Vital Signs Temperature 97.8 F 07/16/20 20:56 Pulse Rate 85 07/16/20 20:56 Respiratory Rate 16 07/16/20 20:56 Blood Pressure 128/73 07/16/20 20:56 O2 Sat by Pulse Oximetry (%) 98 07/16/20 20:56 Constitutional: Yes: Well Nourished, No Distress, Calm Eyes: Yes: Conjunctiva Clear, EOM Intact HENT: Yes: Atraumatic, Normocephalic Neck: Yes: Supple, Trachea Midline Cardiovascular: Yes: Regular Rate and Rhythm Respiratory: Yes: Regular, CTA Bilaterally Gastrointestinal: Yes: Normal Bowel Sounds, Soft ...Rectal Exam: Yes: Deferred Genitourinary: Yes: Incontinence Breast(s): Yes: WNL Musculoskeletal: Yes: WNL Extremities: Yes: WNL Edema: No Peripheral Pulses WNL: Yes Integumentary: Yes: Pressure Ulcer (buttocks and sacrum) Neurological: Yes: Alert ...Motor Strength: WNL Psychiatric: Yes: Alert Labs: CBC, BMP 07/15/20 11:35 07/15/20 07:50 INR, PTT INR 1.25 (0.83-1.09) H 07/08/20 19:40 - ....Imaging Other: Report Reviewed (lab data reviewed) Problem List - Problems (1) Dehydration Code(s): E86.0 - DEHYDRATION (2) Prerenal azotemia Code(s): R79.89 - OTHER SPECIFIED ABNORMAL FINDINGS OF BLOOD CHEMISTRY (3) Anemia Code(s): D64.9 - ANEMIA, UNSPECIFIED (4) Hyponatremia Code(s): E87.1 - HYPO-OSMOLALITY AND HYPONATREMIA (5) OLIVA (acute kidney injury) Code(s): N17.9 - ACUTE KIDNEY FAILURE, UNSPECIFIED (6) Fever Code(s): R50.9 - FEVER, UNSPECIFIED Qualifiers: Fever type: unspecified Qualified Code(s): R50.9 - Fever, unspecified (7) Systemic inflammatory response syndrome (SIRS) Code(s): R65.10 - SIRS OF NON-INFECTIOUS ORIGIN W/O ACUTE ORGAN DYSFUNCTION (8) UTI (urinary tract infection) Code(s): N39.0 - URINARY TRACT INFECTION, SITE NOT SPECIFIED Qualifiers: Urinary tract infection type: site unspecified Hematuria presence: without hematuria Qualified Code(s): N39.0 - Urinary tract infection, site not specified (9) Prostate cancer Code(s): C61 - MALIGNANT NEOPLASM OF PROSTATE (10) Bilateral hydronephrosis Code(s): N13.30 - UNSPECIFIED HYDRONEPHROSIS Assessment/Plan Assessment/plan: IV Zosyn for UTI, urosepsis; SQ Lovenox and oral pantoprazole for DVT/GI prophylaxis, Lovenox on hold (patient is scheduled for TUR today), rivastigmine patch for dementia, tamsulosin for BPH, memantine for memory loss, mirtazapine and venlafaxine for depression, physical therapy, SCDs, patient is medically cleared for surgery.
[2020-07-17] MEDS ORDERED: PIPERACILLIN/TAZOBACTAM 3.375 GM VIAL IVPB ONE (02:17)
[2020-07-17] MEDS ORDERED: DEXTROSE 5%-WATER - 50 ML IVPB ONE (02:17)
[2020-07-17] MEDS: PIPERACILLIN/TAZOB 3.375 GM 3.375 GM in DEXTROSE 5%-WATER - 50 ML IVPB SCH (02:37)
[2020-07-17] MEDS: TAMSULOSIN HCL 0.4 MG CAP PO SCH (10:17)
[2020-07-17] MEDS: MEMANTINE HCL 10 MG TABLET (FP) PO SCH ×2 (10:18→22:45)
[2020-07-17] MEDS: ASCORBIC ACID 250 MG TABLET (FP) PO SCH ×2 (10:18→22:46)
[2020-07-17] MEDS: VENLAFAXINE HCL 37.5 MG E.R. CAPSULE PO SCH (10:18)
[2020-07-17] MEDS: PANTOPRAZOLE 40 MG TABLET PO SCH (10:18)
[2020-07-17] MEDS: RIVASTIGMINE 9.5 MG/24 HOURS TRANSDERMAL PATCH TD SCH (10:19)
[2020-07-17] MEDS: AMOX TR/POT CLAV 250MG/125MG TABLETS PO SCH ×2 (10:19→20:09)
[2020-07-17] MEDS ORDERED: SUCCINYLCHOLINE CHLORIDE 200 MG/10 ML SYRINGE ONE (14:18)
[2020-07-17] MEDS ORDERED: EPHEDRINE SULFATE/0.9% NACL/PF 50 MG/10 ML SYRINGE NR ONE (14:18)
[2020-07-17] MEDS ORDERED: PROPOFOL 20 ML ONE ×2 (14:26→14:54)
[2020-07-17] MEDS ORDERED: DEXAMETHASONE SOD PHOSPHATE 4 MG/1 ML VIAL ONE (14:27)
[2020-07-17] MEDS ORDERED: ETOMIDATE 20 MG/10 ML AMPUL IVPUSH ONE (14:27)
[2020-07-17] MEDS ORDERED: LIDOCAINE HCL/PF 2% SDV 5ML VIAL ONE (14:27)
[2020-07-17] MEDS ORDERED: ceFAZolin 2 GRAM PREMIX BAG IVPB ONE (14:40)
[2020-07-17] MEDS ORDERED: ceFAZolin SODIUM 1 GM VIAL ONE (14:46)
[2020-07-17] MEDS ORDERED: PHENYLEPHRINE HCL 10 MG/1 ML SINGLE DOSE VIAL ONE (15:08)
[2020-07-17] MEDS ORDERED: ONDANSETRON 4 MG/2 ML VIAL IVPUSH PRN ×2 (15:19→16:58)
[2020-07-17] MEDS ORDERED: LACTATED RINGERS SOLUTION 1,000 ML IV SCH (15:30)
--- NOTE | 2020-07-17 15:44 | OP ---
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 No stent noted in the bladder. Ureteral jets visualized bilaterally. Trilobar obs prostate with a prominent median bar. Post-Operative Diagnosis: Same as Pre-op Surgeon: Eyad Torres Anesthesia: General Operative Report Dictated: Yes
[2020-07-17] MEDS ORDERED: ACETAMINOPHEN 325 MG TABLET (FP) PO PRN (16:58)
[2020-07-17] MEDS ORDERED: PT OWN MED DRAWER 7, Y5N ONE ×3 (20:04→22:48)
--- NOTE | 2020-07-17 22:33 | OP ---
DATE OF OPERATION: 07/17/2020 SURGEON: Eyad Torres MD. ANESTHESIA: General anesthesia. PREOPERATIVE DIAGNOSIS: Urinary retention, paroxysm of the prostate, and hematuria. POSTOPERATIVE DIAGNOSIS: Urinary retention, paroxysm of the prostate, and hematuria. PROCEDURE: Cystoscopy and transurethral vaporization of prostate. FINDINGS: Urethral meatal stricture noted. Urethra otherwise normal. Obstructive prostate noted with bilateral lobes and a prominent . Bladder shows severe trabeculation and systemic changes. Urethral orifice shows clear reflux bilaterally. DESCRIPTION OF PROCEDURE: Patient placed in lithotomy position under anesthesia, was prepped and draped in the usual manner using 22 scope. Cystoscopy performed, and no stents were noted. Then using 26 Roberts resectoscope, a good channel was created using the button. All the bleeding points were electrocoagulated. A 22 Lewis was left indwelling. The patient tolerated the procedure well, left the operating room under satisfactory condition. Elham GONZALES/[id number]
[2020-07-17] MEDS: MIRTAZAPINE 15 MG TABLET (FP) PO SCH (22:45)
[2020-07-17] MEDS: ACETAMINOPHEN 325 MG TABLET (FP) PO SCH (22:45)
[2020-07-18] MEDS: LACTATED RINGERS SOLUTION 1,000 ML IV SCH ×2 (02:29→17:37)
--- NOTE | 2020-07-18 08:38 | PN ---
Progress Note, Physician Chief Complaint: Patient seen and examined at the bedside, no acute events from last night, no abdominal pain, afebrile. History of Present Illness: This 80 yr old w/m with PMH of prostate cancer, CAD, s/p stent, mild dementia, hx of Covid 19 infection admitted via ER with an acute fever, UTI, urosepsis, prerenal azotemia, dehydration, neutrophilic leukocytosis, and iron deficiency anemia. - Current Medication List Current Medications: Active Medications Acetaminophen (Tylenol -) 650 mg PO Q6H PRN PRN Reason: FEVER Acetaminophen (Tylenol -) 325 mg PO BID [facility] Last Admin: 07/17/20 22:45 Dose: 325 mg Documented by: Amoxicillin/Clavulanate Potassium (Augmentin - 250mg Tablet) 1 tab PO BID@0800,1730 [facility] Last Admin: 07/17/20 20:09 Dose: 1 tab Documented by: Ascorbic Acid (Vitamin C -) 250 mg PO BID [facility] Last Admin: 07/17/20 22:46 Dose: 250 mg Documented by: Fentanyl (Sublimaze Injection -) 50 mcg IVPUSH [id number] PRN PRN Reason: PAIN-PACU ORDER X 4 DOSES ONLY Lactated Ringer's (Lactated Ringers Solution) 1,000 mls @ 125 mls/hr IV ASDIR [facility] Last Admin: 07/18/20 02:29 Dose: 125 mls/hr Documented by: Memantine (Namenda -) 10 mg PO BID [facility] Last Admin: 07/17/20 22:45 Dose: 10 mg Documented by: Mirtazapine (Remeron -) 7.5 mg PO HS [facility] Last Admin: 07/17/20 22:45 Dose: 7.5 mg Documented by: Ondansetron HCl (Zofran Injection) 4 mg IVPUSH Q6H PRN PRN Reason: NAUSEA AND/OR VOMITING Pantoprazole Sodium (Protonix -) 40 mg PO DAILY [facility] Tamsulosin HCl (Flomax -) 0.4 mg PO DAILY [facility] Venlafaxine HCl (Effexor Xr -) 37.5 mg PO DAILY@0800 [facility] - Objective Vital Signs: Vital Signs Temperature 97.9 F 07/18/20 06:00 Pulse Rate 60 07/18/20 06:00 Respiratory Rate 18 07/18/20 06:00 Blood Pressure 147/72 07/18/20 06:00 O2 Sat by Pulse Oximetry (%) 97 07/18/20 06:00 Constitutional: Yes: Well Nourished, No Distress, Calm Eyes: Yes: Conjunctiva Clear, EOM Intact HENT: Yes: Atraumatic, Normocephalic Neck: Yes: Supple Cardiovascular: Yes: Regular Rate and Rhythm Respiratory: Yes: Regular, CTA Bilaterally Gastrointestinal: Yes: Normal Bowel Sounds, Soft ...Rectal Exam: Yes: Deferred Genitourinary: Yes: Other (urinary retention, bilateral hydronephrosis) Breast(s): Yes: WNL Musculoskeletal: Yes: Muscle Weakness Extremities: Yes: WNL Edema: No Peripheral Pulses WNL: Yes Integumentary: Yes: Rash (coccyx) Neurological: Yes: Alert, Weakness ...Motor Strength: LLE (muscle weakness), RLE (muscle weakness) Psychiatric: Yes: Alert Labs: CBC, BMP 07/15/20 11:35 07/15/20 07:50 INR, PTT INR 1.25 (0.83-1.09) H 07/08/20 19:40 - ....Imaging Other: Report Reviewed (lab data reviewed) Problem List - Problems (1) Dehydration Code(s): E86.0 - DEHYDRATION (2) Prerenal azotemia Code(s): R79.89 - OTHER SPECIFIED ABNORMAL FINDINGS OF BLOOD CHEMISTRY (3) Anemia Code(s): D64.9 - ANEMIA, UNSPECIFIED (4) Hyponatremia Code(s): E87.1 - HYPO-OSMOLALITY AND HYPONATREMIA (5) OLIVA (acute kidney injury) Code(s): N17.9 - ACUTE KIDNEY FAILURE, UNSPECIFIED (6) Fever Code(s): R50.9 - FEVER, UNSPECIFIED Qualifiers: Fever type: unspecified Qualified Code(s): R50.9 - Fever, unspecified (7) Systemic inflammatory response syndrome (SIRS) Code(s): R65.10 - SIRS OF NON-INFECTIOUS ORIGIN W/O ACUTE ORGAN DYSFUNCTION (8) UTI (urinary tract infection) Code(s): N39.0 - URINARY TRACT INFECTION, SITE NOT SPECIFIED Qualifiers: Urinary tract infection type: site unspecified Hematuria presence: without hematuria Qualified Code(s): N39.0 - Urinary tract infection, site not specified (9) Prostate cancer Code(s): C61 - MALIGNANT NEOPLASM OF PROSTATE (10) Bilateral hydronephrosis Code(s): N13.30 - UNSPECIFIED HYDRONEPHROSIS (11) Urinary retention Code(s): R33.9 - RETENTION OF URINE, UNSPECIFIED (12) S/P TURP Code(s): Z90.79 - ACQUIRED ABSENCE OF OTHER GENITAL ORGAN(S) Assessment/Plan Assessment/plan: acute urinary retention, bilateral hydronephrosis, s/p TURP, oral Augementin for UTI, oral tamsulosin for urinary retention, memantine for memory loss, mirtazapine and venlafaxine for depression, ondansetron for nausea, IV fluids for hydration, prostate cancer, CAD, s/p stent, hx of Covid 19 infection, IV venofer for iron deficiency anemia, physical therapy.
[2020-07-18] MEDS ORDERED: PT OWN MED DRAWER 7, Y5N ONE (09:43)
[2020-07-18] MEDS: ASCORBIC ACID 250 MG TABLET (FP) PO SCH ×2 (11:02→21:56)
[2020-07-18] MEDS: AMOX TR/POT CLAV 250MG/125MG TABLETS PO SCH ×3 (11:03→17:36)
[2020-07-18] MEDS: TAMSULOSIN HCL 0.4 MG CAP PO SCH (11:04)
[2020-07-18] MEDS: VENLAFAXINE HCL 37.5 MG E.R. CAPSULE PO SCH (11:04)
[2020-07-18] MEDS: ACETAMINOPHEN 325 MG TABLET (FP) PO SCH ×2 (11:04→21:56)
[2020-07-18] MEDS: PANTOPRAZOLE 40 MG TABLET PO SCH (11:05)
[2020-07-18] MEDS: MEMANTINE HCL 10 MG TABLET (FP) PO SCH ×2 (11:05→22:01)
--- NOTE | 2020-07-18 18:16 | PN ---
Progress Note (short form) - Note Progress Note: POD1 s/p TURP/cysto under [place]. Doing well, no complaints. No anesthetic issues/complications noted
[2020-07-18] MEDS: MIRTAZAPINE 15 MG TABLET (FP) PO SCH (22:01)
[2020-07-19] MEDS: LACTATED RINGERS SOLUTION 1,000 ML IV SCH ×3 (03:51→20:37)
[2020-07-19 08:10] LABS: HEMATOCRIT 29.1 % (35.4-49); HEMOGLOBIN 9.5 GM/dL (11.7-16.9); LYMPH % 26.4 % (8-40); MCH 27.8 pg (25.7-33.7); MCHC 32.6 g/dl (32.0-35.9); MEAN CELL VOLUME 85.3 fl (80-96); MONO % 7.3 % (3.8-10.2); NEUT % 63.3 % (42.8-82.8); PLATELET COUNT 352 K/MM3 (134-434); RBC 3.41 M/mm3 (4.00-5.60); RDW 15.4 % (11.9-15.9); WHITE BLOOD COUNT 8.5 K/mm3 (4.0-10.0)
[2020-07-19 08:32] LABS: ALBUMIN 2.3 g/dl (3.4-5.0); BILIRUBIN,TOTAL 0.3 mg/dL (0.2-1); BLOOD UREA NITROGEN 20.6 mg/dL (7-18); CALCIUM 8.5 mg/dL (8.5-10.1); CREATININE 1.4 mg/dL (0.55-1.3); TOT PROT 5.9 g/dl (6.4-8.2)
[2020-07-19] MEDS: AMOX TR/POT CLAV 250MG/125MG TABLETS PO SCH ×2 (08:52→18:13)
--- NOTE | 2020-07-19 08:56 | PN ---
Progress Note, Physician Chief Complaint: Patient seen and examined at the bedside, no acute events from last night, afebrile, oxygen 4L/min via nasal cannula with spo2 96%. History of Present Illness: This 80 yr old w/m with PMH of prostate cancer, CAD, s/p stent, mild dementia, hx of Covid 19 infection admitted via ER with acute fever, UTI, urosepsis, prerenal azotemia, dehydration, neutrophilic leukocytosis, iron deficiency anemia, urinary retention, and bilateral hydronephrosis. - Current Medication List Current Medications: Active Medications Acetaminophen (Tylenol -) 650 mg PO Q6H PRN PRN Reason: FEVER Acetaminophen (Tylenol -) 325 mg PO BID [facility] Last Admin: 07/18/20 21:56 Dose: 325 mg Documented by: Amoxicillin/Clavulanate Potassium (Augmentin - 250mg Tablet) 1 tab PO BID@0800,1730 [facility] Last Admin: 07/18/20 17:36 Dose: 1 tab Documented by: Ascorbic Acid (Vitamin C -) 250 mg PO BID [facility] Last Admin: 07/18/20 21:56 Dose: 250 mg Documented by: Fentanyl (Sublimaze Injection -) 50 mcg IVPUSH [id number] PRN PRN Reason: PAIN-PACU ORDER X 4 DOSES ONLY Lactated Ringer's (Lactated Ringers Solution) 1,000 mls @ 125 mls/hr IV ASDIR [facility] Last Admin: 07/19/20 03:51 Dose: 125 mls/hr Documented by: Memantine (Namenda -) 10 mg PO BID [facility] Last Admin: 07/18/20 22:01 Dose: 10 mg Documented by: Mirtazapine (Remeron -) 7.5 mg PO HS [facility] Last Admin: 07/18/20 22:01 Dose: 7.5 mg Documented by: Ondansetron HCl (Zofran Injection) 4 mg IVPUSH Q6H PRN PRN Reason: NAUSEA AND/OR VOMITING Pantoprazole Sodium (Protonix -) 40 mg PO DAILY [facility] Last Admin: 07/18/20 11:05 Dose: 40 mg Documented by: Tamsulosin HCl (Flomax -) 0.4 mg PO DAILY [facility] Last Admin: 07/18/20 11:04 Dose: 0.4 mg Documented by: Venlafaxine HCl (Effexor Xr -) 37.5 mg PO DAILY@0800 [facility] Last Admin: 07/18/20 11:04 Dose: 37.5 mg Documented by: - Objective Vital Signs: Vital Signs Temperature 97.8 F 07/19/20 06:00 Pulse Rate 86 07/19/20 06:00 Respiratory Rate 18 07/19/20 06:00 Blood Pressure 146/76 07/19/20 06:00 O2 Sat by Pulse Oximetry (%) 96 07/19/20 06:00 Constitutional: Yes: Well Nourished, No Distress, Calm Eyes: Yes: Conjunctiva Clear, EOM Intact HENT: Yes: Atraumatic, Normocephalic Neck: Yes: Supple, Trachea Midline Cardiovascular: Yes: Regular Rate and Rhythm Respiratory: Yes: Regular, CTA Bilaterally Gastrointestinal: Yes: Normal Bowel Sounds, Soft ...Rectal Exam: Yes: Deferred Genitourinary: Yes: Other (urinary retention, bilateral hydronephrosis, s/p TURP) Breast(s): Yes: WNL Musculoskeletal: Yes: Muscle Weakness Extremities: Yes: WNL Edema: No Peripheral Pulses WNL: Yes Integumentary: Yes: Pressure Ulcer (buttocks and sacrum) Neurological: Yes: Alert ...Motor Strength: LLE (muscle weakness), RLE (muscle weakness) Psychiatric: Yes: Alert Labs: CBC, BMP 07/19/20 06:50 07/19/20 06:50 INR, PTT INR 1.25 (0.83-1.09) H 07/08/20 19:40 - ....Imaging Other: Report Reviewed (lab data reviewed) Problem List - Problems (1) Dehydration Code(s): E86.0 - DEHYDRATION (2) Prerenal azotemia Code(s): R79.89 - OTHER SPECIFIED ABNORMAL FINDINGS OF BLOOD CHEMISTRY (3) Anemia Code(s): D64.9 - ANEMIA, UNSPECIFIED (4) Hyponatremia Code(s): E87.1 - HYPO-OSMOLALITY AND HYPONATREMIA (5) OLIVA (acute kidney injury) Code(s): N17.9 - ACUTE KIDNEY FAILURE, UNSPECIFIED (6) Fever Code(s): R50.9 - FEVER, UNSPECIFIED Qualifiers: Fever type: unspecified Qualified Code(s): R50.9 - Fever, unspecified (7) Systemic inflammatory response syndrome (SIRS) Code(s): R65.10 - SIRS OF NON-INFECTIOUS ORIGIN W/O ACUTE ORGAN DYSFUNCTION (8) UTI (urinary tract infection) Code(s): N39.0 - URINARY TRACT INFECTION, SITE NOT SPECIFIED Qualifiers: Urinary tract infection type: site unspecified Hematuria presence: without hematuria Qualified Code(s): N39.0 - Urinary tract infection, site not specified (9) Prostate cancer Code(s): C61 - MALIGNANT NEOPLASM OF PROSTATE (10) Bilateral hydronephrosis Code(s): N13.30 - UNSPECIFIED HYDRONEPHROSIS (11) Urinary retention Code(s): R33.9 - RETENTION OF URINE, UNSPECIFIED (12) S/P TURP Code(s): Z90.79 - ACQUIRED ABSENCE OF OTHER GENITAL ORGAN(S) Assessment/Plan Assessment/plan: urinary retention, bilateral hydronephrosis, s/p TURP, prostate cancer, CAD, s/p stent, mild dementia, hx of Covid 19 infection, UTI, urosepsis, prerenal azotemia, dehydration, neutrophilic leukocytosis, iron deficiency anemia; Augmentin for UTI; tamsulosin for urinary retention; SQ Lovenox and oral pantoprazole for DVT/GI prophylaxis; memantine for memory loss; mirtazapine and venlafaxine for depression; IV fluids for hydration, physical therapy for dec onditioning; oxygen 4L/min via nasal cannula with spo2 96%.
[2020-07-19] MEDS: ACETAMINOPHEN 325 MG TABLET (FP) PO SCH ×2 (10:29→22:36)
[2020-07-19] MEDS: TAMSULOSIN HCL 0.4 MG CAP PO SCH (10:29)
[2020-07-19] MEDS: MEMANTINE HCL 10 MG TABLET (FP) PO SCH ×2 (10:29→22:35)
[2020-07-19] MEDS: ASCORBIC ACID 250 MG TABLET (FP) PO SCH ×2 (10:30→23:31)
[2020-07-19] MEDS: PANTOPRAZOLE 40 MG TABLET PO SCH (10:30)
[2020-07-19] MEDS ORDERED: PT OWN MED DRAWER 7, Y5N ONE ×2 (10:32→10:43)
[2020-07-19] MEDS: VENLAFAXINE HCL 37.5 MG E.R. CAPSULE PO SCH (10:52)
--- NOTE | 2020-07-19 15:32 | DS ---
Physical Examination Vital Signs: Vital Signs Temperature 98.6 F 07/19/20 15:11 Pulse Rate 81 07/19/20 15:11 Respiratory Rate 18 07/19/20 15:11 Blood Pressure 151/75 07/19/20 15:11 O2 Sat by Pulse Oximetry (%) 96 07/19/20 15:11 Constitutional: Yes: Well Nourished, No Distress, Calm Eyes: Yes: Conjunctiva Clear, EOM Intact HENT: Yes: Atraumatic, Normocephalic Neck: Yes: Supple Cardiovascular: Yes: Regular Rate and Rhythm Respiratory: Yes: Regular, CTA Bilaterally Gastrointestinal: Yes: Normal Bowel Sounds, Soft ...Rectal Exam: Yes: Deferred Renal/: Yes: Incontinence Breast(s): Yes: WNL Edema: No Peripheral Pulses WNL: Yes Integumentary: Yes: Pressure Ulcer (buttocks and sacrum) Neurological: Yes: Alert, Weakness ...Motor Strength: LLE (muscle weakness), RLE (muscle weakness) Psychiatric: Yes: Alert Labs: CBC, BMP 07/19/20 06:50 07/19/20 06:50 Discharge Summary Problems reviewed: Yes Reason For Visit: UTI,FEVER,SYSTEMIC INFLAMMATORY RESPONSE SYNDROME Current Active Problems OLIVA (acute kidney injury) (Acute) Anemia (Acute) Bilateral hydronephrosis (Acute) Dehydration (Acute) Fever (Acute) Hyponatremia (Acute) Prerenal azotemia (Acute) Prostate cancer (Acute) S/P TURP (Acute) Systemic inflammatory response syndrome (SIRS) (Acute) UTI (urinary tract infection) (Acute) Urinary retention (Acute) Condition: Improved - Instructions Diet, Activity, Other Instructions: Continue present meds. Activity as tolerated. Transfer to [facility]. Follow up with Dr. Hooks within one week. Total time spent over 30 minutes. Referrals: Pamela Hooks [Primary Care Provider] - - Home Medications Comprehensive Discharge Medication List: Ambulatory Orders Acetaminophen 325 mg PO BID 07/08/20 Ascorbic Acid [Vitamin C] 250 mg PO BID 07/08/20 Aspirin 81 mg PO DAILY 07/08/20 Desvenlafaxine Succinate [Desvenlafaxine Succinate ER] 25 mg PO DAILY 07/08/20 Memantine HCl [Memantine HCl ER] 28 mg PO DAILY 07/08/20 Mirtazapine 7.5 mg PO HS 07/08/20 Rivastigmine 1 each TD DAILY 07/08/20 Silodosin 4 mg PO DAILY 07/08/20 Tamsulosin HCl 0.4 mg PO DAILY 07/08/20 Acetaminophen [Tylenol .Regular Strength -] 650 mg PO Q6H PRN tablet 07/16/20 Ascorbic Acid [Vitamin C -] 250 mg PO BID tablet 07/16/20 Memantine HCl [Namenda -] 10 mg PO BID tablet 07/16/20 Mirtazapine [Remeron -] 7.5 mg PO HS tablet 07/16/20 Rivastigmine [Exelon Patch 9.5 mg/24 Hours -] 1 each TD Q24H patch.td24 07/16/20 Tamsulosin HCl [Flomax -] 0.8 mg PO DAILY@0830 cap.er.24h 07/16/20 Acetaminophen [Tylenol .Regular Strength -] 650 mg PO Q6H PRN tablet 07/19/20 Amox-Tr/K Cl [Augmentin 250-125mg Tablet -] 1 tab PO BID@0800,1730 #10 tablet 07/19/20 Ascorbic Acid [Vitamin C -] 250 mg PO BID tablet 07/19/20 Mirtazapine [Remeron -] 7.5 mg PO HS tablet 07/19/20
[2020-07-19] MEDS: MIRTAZAPINE 15 MG TABLET (FP) PO SCH (22:35)
[2020-07-20] MEDS: LACTATED RINGERS SOLUTION 1,000 ML IV SCH (04:42)
[2020-07-20] MEDS ORDERED: INSULIN (NOVOLOG) ASPART 100 UNITS/ML 10ML VIAL ONE (08:04)
[2020-07-20] MEDS ORDERED: INSULIN (LEVEMIR) 100 UNITS/ML UNITS SQ ONE (08:04)
[2020-07-20] MEDS ORDERED: PT OWN MED DRAWER 7, Y5N ONE ×5 (08:54→21:46)
[2020-07-20 09:22] LABS: BASO % 1.4 % (0-2.0); EOS % 2.6 % (0-4.5); HEMATOCRIT 33.4 % (35.4-49); HEMOGLOBIN 10.8 GM/dL (11.7-16.9); LYMPH % 17.8 % (8-40); MCH 27.8 pg (25.7-33.7); MCHC 32.5 g/dl (32.0-35.9); MEAN CELL VOLUME 85.7 fl (80-96); MEAN PLT VOLUME 8.4 fl (7.5-11.1); NEUT % 70.2 % (42.8-82.8); PLATELET COUNT 332 K/MM3 (134-434); RBC 3.89 M/mm3 (4.00-5.60); RDW 15.6 % (11.9-15.9); WHITE BLOOD COUNT 10.2 K/mm3 (4.0-10.0)
[2020-07-20] MEDS: ACETAMINOPHEN 325 MG TABLET (FP) PO SCH ×2 (09:55→22:00)
[2020-07-20] MEDS: PANTOPRAZOLE 40 MG TABLET PO SCH (09:55)
[2020-07-20] MEDS: TAMSULOSIN HCL 0.4 MG CAP PO SCH (09:55)
[2020-07-20] MEDS: MEMANTINE HCL 10 MG TABLET (FP) PO SCH ×2 (09:56→22:00)
[2020-07-20] MEDS: AMOX TR/POT CLAV 250MG/125MG TABLETS PO SCH ×2 (09:56→18:44)
[2020-07-20] MEDS: VENLAFAXINE HCL 37.5 MG E.R. CAPSULE PO SCH (09:57)
[2020-07-20] MEDS: ASCORBIC ACID 250 MG TABLET (FP) PO SCH ×2 (09:58→22:03)
[2020-07-20 10:01] LABS: ALBUMIN 2.6 g/dl (3.4-5.0); BLOOD UREA NITROGEN 17.8 mg/dL (7-18); CALCIUM 8.9 mg/dL (8.5-10.1); POTASSIUM 4.2 mmol/L (3.5-5.1)
[2020-07-20 10:06] LABS: BILIRUBIN,TOTAL 0.9 mg/dL (0.2-1); CREATININE 1.3 mg/dL (0.55-1.3); TOT PROT 6.4 g/dl (6.4-8.2)
--- NOTE | 2020-07-20 12:27 | PN ---
Progress Note, Physician Chief Complaint: Patient seen and examined at the bedside, no acute events from last night, afebrile. History of Present Illness: This 80 yr old w/m with PMH of prostate cancer, CAD, s/p stent, mild dementia, Covid 19 infection admitted via ER with an acute fever, UTI, urosepsis, prerenal azotemia, dehydration, neutrophilic leukocytosis, and iron deficiency anemia. - Current Medication List Current Medications: Active Medications Acetaminophen (Tylenol -) 650 mg PO Q6H PRN PRN Reason: FEVER Acetaminophen (Tylenol -) 325 mg PO BID [facility] Last Admin: 07/20/20 09:55 Dose: 325 mg Documented by: Amoxicillin/Clavulanate Potassium (Augmentin - 250mg Tablet) 1 tab PO BID@0800,1730 [facility] Last Admin: 07/20/20 09:56 Dose: 1 tab Documented by: Ascorbic Acid (Vitamin C -) 250 mg PO BID [facility] Last Admin: 07/20/20 09:58 Dose: 250 mg Documented by: Fentanyl (Sublimaze Injection -) 50 mcg IVPUSH [id number] PRN PRN Reason: PAIN-PACU ORDER X 4 DOSES ONLY Lactated Ringer's (Lactated Ringers Solution) 1,000 mls @ 125 mls/hr IV ASDIR [facility] Last Admin: 07/20/20 04:42 Dose: 125 mls/hr Documented by: Memantine (Namenda -) 10 mg PO BID [facility] Last Admin: 07/20/20 09:56 Dose: 10 mg Documented by: Mirtazapine (Remeron -) 7.5 mg PO HS [facility] Last Admin: 07/19/20 22:35 Dose: 7.5 mg Documented by: Ondansetron HCl (Zofran Injection) 4 mg IVPUSH Q6H PRN PRN Reason: NAUSEA AND/OR VOMITING Pantoprazole Sodium (Protonix -) 40 mg PO DAILY [facility] Last Admin: 07/20/20 09:55 Dose: 40 mg Documented by: Tamsulosin HCl (Flomax -) 0.4 mg PO DAILY [facility] Last Admin: 07/20/20 09:55 Dose: 0.4 mg Documented by: Venlafaxine HCl (Effexor Xr -) 37.5 mg PO DAILY@0800 [facility] Last Admin: 07/20/20 09:57 Dose: 37.5 mg Documented by: - Objective Vital Signs: Vital Signs Temperature 98.1 F 07/20/20 05:32 Pulse Rate 71 07/20/20 05:32 Respiratory Rate 16 07/20/20 05:32 Blood Pressure 156/77 07/20/20 05:32 O2 Sat by Pulse Oximetry (%) 97 07/20/20 05:32 Constitutional: Yes: Well Nourished, No Distress, Calm Eyes: Yes: Conjunctiva Clear, EOM Intact HENT: Yes: Atraumatic, Normocephalic Neck: Yes: Supple, Trachea Midline Cardiovascular: Yes: Regular Rate and Rhythm Respiratory: Yes: Regular, CTA Bilaterally Gastrointestinal: Yes: Normal Bowel Sounds, Soft ...Rectal Exam: Yes: Deferred Genitourinary: Yes: Incontinence Breast(s): Yes: WNL Musculoskeletal: Yes: WNL Extremities: Yes: WNL Edema: No Peripheral Pulses WNL: Yes Integumentary: Yes: Pressure Ulcer (buttocks and sacrum) Neurological: Yes: Alert ...Motor Strength: WNL Psychiatric: Yes: Alert Labs: CBC, BMP 07/20/20 08:07 07/20/20 08:07 INR, PTT INR 1.25 (0.83-1.09) H 07/08/20 19:40 - ....Imaging Other: Report Reviewed (lab data reviewed) Problem List - Problems (1) Dehydration Code(s): E86.0 - DEHYDRATION (2) Prerenal azotemia Code(s): R79.89 - OTHER SPECIFIED ABNORMAL FINDINGS OF BLOOD CHEMISTRY (3) Anemia Code(s): D64.9 - ANEMIA, UNSPECIFIED (4) Hyponatremia Code(s): E87.1 - HYPO-OSMOLALITY AND HYPONATREMIA (5) OLIVA (acute kidney injury) Code(s): N17.9 - ACUTE KIDNEY FAILURE, UNSPECIFIED (6) Fever Code(s): R50.9 - FEVER, UNSPECIFIED Qualifiers: Fever type: unspecified Qualified Code(s): R50.9 - Fever, unspecified (7) Systemic inflammatory response syndrome (SIRS) Code(s): R65.10 - SIRS OF NON-INFECTIOUS ORIGIN W/O ACUTE ORGAN DYSFUNCTION (8) UTI (urinary tract infection) Code(s): N39.0 - URINARY TRACT INFECTION, SITE NOT SPECIFIED Qualifiers: Urinary tract infection type: site unspecified Hematuria presence: without hematuria Qualified Code(s): N39.0 - Urinary tract infection, site not specified (9) Prostate cancer Code(s): C61 - MALIGNANT NEOPLASM OF PROSTATE (10) Bilateral hydronephrosis Code(s): N13.30 - UNSPECIFIED HYDRONEPHROSIS (11) Urinary retention Code(s): R33.9 - RETENTION OF URINE, UNSPECIFIED (12) S/P TURP Code(s): Z90.79 - ACQUIRED ABSENCE OF OTHER GENITAL ORGAN(S) Assessment/Plan Assessment/plan: Acute fever, UTI, urinary retention, bilateral hydronephrosis, s/p TURP, prostate cancer, CAD, s/p stent, mild dementia, Covid 19 infection; Augmentin for UTI, tamsulosin for urinary retention, mirtazapine and venlafaxine for depression, discharge planning, pediatric social worker request, follow up with Urologist one week from discharge.
--- NOTE | 2020-07-20 13:22 | PN ---
Progress Note (short form) - Note Progress Note: UROLOGY NOTE 80 Y/O Male patient S/P TUVP 07/18 d/c ortiz catheter and void well. O/E soft lax abd no palpable bladder BUN 17.8 S.Creat 1.3 wbc 10.2 hb 10.8 Plan: D/C home RTC 1 week
[2020-07-20] MEDS: MIRTAZAPINE 15 MG TABLET (FP) PO SCH (22:00)
[2020-07-21] MEDS: TAMSULOSIN HCL 0.4 MG CAP PO SCH (09:31)
[2020-07-21] MEDS: MEMANTINE HCL 10 MG TABLET (FP) PO SCH (09:32)
[2020-07-21] MEDS: ACETAMINOPHEN 325 MG TABLET (FP) PO SCH (09:32)
[2020-07-21] MEDS: AMOX TR/POT CLAV 250MG/125MG TABLETS PO SCH (09:32)
[2020-07-21] MEDS: ASCORBIC ACID 250 MG TABLET (FP) PO SCH (09:33)
[2020-07-21] MEDS: VENLAFAXINE HCL 37.5 MG E.R. CAPSULE PO SCH (09:33)
[2020-07-21 09:48] VITALS: BP 140/86; PULSE 88; TEMP 97.8
--- NOTE | 2020-07-21 11:58 | DS ---
Physical Examination Vital Signs: Vital Signs Temperature 97.8 F 07/21/20 09:47 Pulse Rate 88 07/21/20 09:47 Respiratory Rate 12 07/21/20 09:47 Blood Pressure 140/86 07/21/20 09:47 O2 Sat by Pulse Oximetry (%) 97 07/21/20 09:47 Constitutional: Yes: Well Nourished, No Distress, Calm Eyes: Yes: Conjunctiva Clear, EOM Intact HENT: Yes: Atraumatic, Normocephalic Neck: Yes: Supple, Trachea Midline Cardiovascular: Yes: Regular Rate and Rhythm Respiratory: Yes: Regular, CTA Bilaterally Gastrointestinal: Yes: Normal Bowel Sounds, Soft ...Rectal Exam: Yes: Deferred Renal/: Yes: Incontinence, Other (s/p TURP) Breast(s): Yes: WNL Musculoskeletal: Yes: WNL Extremities: Yes: WNL Edema: No Peripheral Pulses WNL: Yes Integumentary: Yes: Rash (Buttocks and sacrum) Neurological: Yes: Alert ...Motor Strength: WNL Psychiatric: Yes: Alert Labs: CBC, BMP 07/20/20 08:07 07/20/20 08:07 Discharge Summary Problems reviewed: Yes Reason For Visit: UTI,FEVER,SYSTEMIC INFLAMMATORY RESPONSE SYNDROME Condition: Improved - Instructions Diet, Activity, Other Instructions: Continue present meds. Activity as tolerated. Transfer to [facility]. Follow up with Dr. Hooks within one week. Total time spent over 30 minutes. Referrals: Pamela Hooks [Primary Care Provider] - Disposition: HOME - Home Medications Comprehensive Discharge Medication List: Ambulatory Orders Acetaminophen 325 mg PO BID 07/08/20 Ascorbic Acid [Vitamin C] 250 mg PO BID 07/08/20 Aspirin 81 mg PO DAILY 07/08/20 Desvenlafaxine Succinate [Desvenlafaxine Succinate ER] 25 mg PO DAILY 07/08/20 Memantine HCl [Memantine HCl ER] 28 mg PO DAILY 07/08/20 Mirtazapine 7.5 mg PO HS 07/08/20 Rivastigmine 1 each TD DAILY 07/08/20 Silodosin 4 mg PO DAILY 07/08/20 Tamsulosin HCl 0.4 mg PO DAILY 07/08/20 Acetaminophen [Tylenol .Regular Strength -] 650 mg PO Q6H PRN tablet 07/16/20 Ascorbic Acid [Vitamin C -] 250 mg PO BID tablet 07/16/20 Memantine HCl [Namenda -] 10 mg PO BID tablet 07/16/20 Mirtazapine [Remeron -] 7.5 mg PO HS tablet 07/16/20 Rivastigmine [Exelon Patch 9.5 mg/24 Hours -] 1 each TD Q24H patch.td24 07/16/20 Tamsulosin HCl [Flomax -] 0.8 mg PO DAILY@0830 cap.er.24h 07/16/20 Acetaminophen [Tylenol .Regular Strength -] 650 mg PO Q6H PRN tablet 07/19/20 Amox-Tr/K Cl [Augmentin 250-125mg Tablet -] 1 tab PO BID@0800,1730 #10 tablet 07/19/20 Ascorbic Acid [Vitamin C -] 250 mg PO BID tablet 07/19/20 Mirtazapine [Remeron -] 7.5 mg PO HS tablet 07/19/20
== END 2020-07-21 11:39 | disposition home or self-care (01) | DRG 854 ==
LOC: JER 18:13 → JERBED 20:02 → J6S 07-09 03:06 → J5S 07-16 19:25
PROVIDERS: ADMIT Internal Medicine; ATTEND Internal Medicine
PROC: 0V507ZZ Destruction of Prostate, Via Natural or Artificial Opening (ICD-10-PCS; principal; 2020-07-17 13:30)
PROC: 0TJB8ZZ Inspection of Bladder, Via Natural or Artificial Opening Endoscopic (ICD-10-PCS; 2020-07-17 13:30)
DX: A41.9 Sepsis, unspecified organism (principal); N13.30 Unspecified hydronephrosis; E87.1 Hypo-osmolality and hyponatremia; N39.0 Urinary tract infection, site not specified; N17.9 Acute kidney failure, unspecified; K21.9 Gastro-esophageal reflux disease without esophagitis; D64.9 Anemia, unspecified; E86.0 Dehydration; R33.9 Retention of urine, unspecified; I25.10 Atherosclerotic heart disease of native coronary artery without angina pectoris; Z95.5 Presence of coronary angioplasty implant and graft; F03.90 Unspecified dementia, unspecified severity, without behavioral disturbance, psychotic disturbance, mood disturbance, and anxiety; D72.829 Elevated white blood cell count, unspecified; D50.9 Iron deficiency anemia, unspecified; F32.9 Major depressive disorder, single episode, unspecified; N40.0 Benign prostatic hyperplasia without lower urinary tract symptoms; R50.9 Fever, unspecified; C61 Malignant neoplasm of prostate; K59.00 Constipation, unspecified; R00.0 Tachycardia, unspecified; R31.9 Hematuria, unspecified
CPT/HCPCS: 36415; 71045-TC-FY; 76000-TC-FY; 76775-TC; 76856-TC; 80053; 81003; 82272; 82728; 83540; 83550; 83605; 84484; 85025; 85027; 85610; 85730; 86850; 86900; 86901; 87040; 87086; 93005; 93010; 94760; 97116-GP; 97162-GP; 99285-25; J0131; J1756; U0003

== ENCOUNTER 2020-09-18 22:36 | Emergency (ER) | payer OTHER ==
[2020-09-18 23:27] VITALS: BMI 26.1
[2020-09-19 01:00] LABS: BASO % 1.8 % (0-2.0); EOS % 7.3 % (0-4.5); HEMATOCRIT 34.4 % (35.4-49); HEMOGLOBIN 11.4 GM/dL (11.7-16.9); LYMPH % 31.7 % (8-40); MCH 28.6 pg (25.7-33.7); MCHC 33.2 g/dl (32.0-35.9); MEAN PLT VOLUME 8.4 fl (7.5-11.1); MONO % 11.2 % (3.8-10.2); PLATELET COUNT 277 K/MM3 (134-434); RDW 16.4 % (11.9-15.9); WHITE BLOOD COUNT 8.9 K/mm3 (4.0-10.0)
[2020-09-19 01:28] LABS: EPI CELLS 1 /uL (0-25.1); HYALINE CASTS 7 /uL (0-3.1); PH,URINE 5.5 (5.0-8.0); URINE APPEARANCE TURBID; URINE BILIRUBIN 2+ (NEGATIVE); URINE COLOR RED; URINE GLUCOSE (UA) NEGATIVE (NEGATIVE); URINE KETONE NEGATIVE (NEGATIVE); URINE LEUK ESTERASE 2+ (NEGATIVE); URINE NITRITE POSITIVE (NEGATIVE); URINE PROTEIN 2+ (NEGATIVE); URINE RBC 1152 /uL (0-23.9); URINE UROBILINOGEN 0.2 mg/dL (0.2-1.0); URINE WBC 4 /uL (0-25.8)
[2020-09-19 02:27] LABS: POTASSIUM 4.4 mmol/L (3.5-5.1)
[2020-09-19 02:29] LABS: CALCIUM 9.3 mg/dL (8.5-10.1)
[2020-09-19 02:30] LABS: ALBUMIN 3.7 g/dl (3.4-5.0)
[2020-09-19 02:32] LABS: BLOOD UREA NITROGEN 36.5 mg/dL (7-18)
[2020-09-19 02:34] LABS: BILIRUBIN,TOTAL 0.2 mg/dL (0.2-1); TOT PROT 7.4 g/dl (6.4-8.2)
[2020-09-19] MEDS ORDERED: CEFTRIAXONE 1,000 MG in DEXTROSE 5%-WATER - 50 ML IVPB ONE (02:34)
[2020-09-19 03:04] LABS: INR 1.01 (0.83-1.09); PROTHROMBIN TIME (PATIENT) 12.4 SEC (9.7-13.0)
[2020-09-19 03:06] LABS: ACTIVATED PTT 31.5 SECONDS (25.2-36.5)
[2020-09-19] MEDS ORDERED: CEFTRIAXONE 1 GM/50 ML BAG ONE (03:13)
[2020-09-19] MEDS ORDERED: SODIUM CHLORIDE 1,000 ML IV STA (03:33)
[2020-09-19 05:50] LABS: POTASSIUM 4.3 mmol/L (3.5-5.1)
[2020-09-19 05:52] LABS: BLOOD UREA NITROGEN 35.3 mg/dL (7-18)
[2020-09-19 05:55] LABS: CREATININE 1.8 mg/dL (0.55-1.3)
[2020-09-19 07:13] VITALS: BP 134/86; PULSE 91; TEMP 98.1
== END 2020-09-19 08:45 | disposition home or self-care (01) ==
LOC: JER 22:36
PROC: 3E03329 Introduction of Other Anti-infective into Peripheral Vein, Percutaneous Approach (ICD-10-PCS; principal; 2020-09-19)
PROC: 3E0337Z Introduction of Electrolytic and Water Balance Substance into Peripheral Vein, Percutaneous Approach (ICD-10-PCS; 2020-09-19)
DX: N30.01 Acute cystitis with hematuria (principal); R79.89 Other specified abnormal findings of blood chemistry
CPT/HCPCS: 36415; 74176-TC; 80048; 80053; 81003; 85025; 85610; 85730; 87077; 87086; 93005; 93010; 99285-25

== ENCOUNTER 2020-10-26 22:49 | Inpatient (IN) | payer OTHER ==
[2020-10-27 02:37] LABS: HEMOGLOBIN 8.7 GM/dL (11.7-16.9); LYMPH % 26.6 % (8-40); MCH 27.8 pg (25.7-33.7); MCHC 32.2 g/dl (32.0-35.9); MEAN CELL VOLUME 86.4 fl (80-96); MEAN PLT VOLUME 8.2 fl (7.5-11.1); MONO % 7.2 % (3.8-10.2); NEUT % 57.2 % (42.8-82.8); PLATELET COUNT 252 K/MM3 (134-434); RBC 3.13 M/mm3 (4.00-5.60); RDW 14.5 % (11.9-15.9); WHITE BLOOD COUNT 9.9 K/mm3 (4.0-10.0)
[2020-10-27 02:50] LABS: INR 1.03 (0.83-1.09); PROTHROMBIN TIME (PATIENT) 12.7 SEC (9.7-13.0)
[2020-10-27 02:51] LABS: CHLORIDE 108 mmol/L (98-107); POTASSIUM 4.6 mmol/L (3.5-5.1); SODIUM 140 mmol/L (136-145)
[2020-10-27 02:53] LABS: ACTIVATED PTT 27.3 SECONDS (25.2-36.5); CALCIUM 8.5 mg/dL (8.5-10.1)
[2020-10-27 02:54] LABS: ALBUMIN 3.4 g/dl (3.4-5.0); ANION GAP 8 MMOL/L (8-16); CO2 24 mmol/L (21-32); GLUCOSE,RANDOM 102 mg/dL (74-106)
[2020-10-27 02:57] LABS: CREATININE 1.9 mg/dL (0.55-1.3); SGOT/AST 17 U/L (15-37); SGPT/ALT 16 U/L (13-61)
[2020-10-27 02:58] LABS: BILIRUBIN,TOTAL 0.2 mg/dL (0.2-1); TOT PROT 6.7 g/dl (6.4-8.2)
[2020-10-27 02:59] LABS: ALK PHOS 81 U/L (45-117)
[2020-10-27] MEDS ORDERED: LACTATED RINGERS SOLUTION 1,000 ML/1,000 ML INFUS.BAG IV STA (03:13)
[2020-10-27 07:45] LABS: BASO % 1.8 % (0-2.0); EOS % 7.1 % (0-4.5); HEMATOCRIT 26.5 % (35.4-49); HEMOGLOBIN 8.8 GM/dL (11.7-16.9); LYMPH % 31.2 % (8-40); MCH 28.2 pg (25.7-33.7); MCHC 33.3 g/dl (32.0-35.9); MEAN CELL VOLUME 84.7 fl (80-96); MEAN PLT VOLUME 8.2 fl (7.5-11.1); MONO % 9.5 % (3.8-10.2); NEUT % 50.4 % (42.8-82.8); PLATELET COUNT 252 K/MM3 (134-434); RBC 3.13 M/mm3 (4.00-5.60); RDW 14.5 % (11.9-15.9); WHITE BLOOD COUNT 8.5 K/mm3 (4.0-10.0)
[2020-10-27] MEDS ORDERED: DOCUSATE SODIUM 100 MG CAPSULE (FP) PO PRN (09:25)
[2020-10-27] MEDS ORDERED: ACETAMINOPHEN 325 MG TABLET (FP) PO PRN (09:26)
[2020-10-27 09:36] LABS: URINE APPEARANCE BLOODY; URINE COLOR RED
[2020-10-27 10:18] LABS: EPI CELLS NONE SEEN /uL (0-25.1); URINE BACTERIA NONE SEEN /uL (0-1359); URINE RBC >100 /uL (0-23.9); URINE WBC 0-3 /uL (0-25.8)
[2020-10-27] MEDS ORDERED: PANTOPRAZOLE 40 MG TABLET ONE (12:12)
[2020-10-27] MEDS: MEMANTINE HCL 10 MG TABLET (FP) PO SCH (12:16)
[2020-10-27] MEDS: PANTOPRAZOLE 40 MG TABLET PO SCH (12:16)
[2020-10-27] MEDS: VENLAFAXINE HCL 25 MG TABLET PO SCH (12:16)
[2020-10-27] MEDS: RIVASTIGMINE TARTRATE 1.5 MG CAPSULE PO SCH (12:16)
[2020-10-27] MEDS: ASCORBIC ACID 250 MG TABLET (FP) PO SCH (12:16)
[2020-10-27] MEDS: CEFTRIAXONE 1 GM in DEXTROSE 5%-WATER - 50 ML IVPB SCH (13:18)
[2020-10-27] MEDS: D5-1/2NS+10 MEQ KCL - 10 MEQ/1,000 ML INFUS.BAG IV SCH (13:43)
[2020-10-27] MEDS ORDERED: IRON SUCROSE INJECTION 200 MG in SODIUM CHLORIDE 90 ML IVPB ONE (14:00)
[2020-10-27] MEDS ORDERED: MIRTAZAPINE 15 MG TABLET (FP) ONE (23:07)
[2020-10-27] MEDS ORDERED: ASCORBIC ACID 500 MG TABLET (FP) ONE (23:08)
[2020-10-28] MEDS: RIVASTIGMINE TARTRATE 1.5 MG CAPSULE PO SCH ×3 (00:37→22:16)
[2020-10-28] MEDS: ASCORBIC ACID 250 MG TABLET (FP) PO SCH ×3 (00:37→22:16)
[2020-10-28] MEDS: MEMANTINE HCL 10 MG TABLET (FP) PO SCH ×3 (00:37→22:15)
[2020-10-28] MEDS: MIRTAZAPINE 15 MG TABLET (FP) PO SCH ×2 (00:37→22:16)
[2020-10-28] MEDS ORDERED: BENZOIN/ALOE VERA/STORAX/TOLU 58 ML BOTTLE ONE (08:58)
[2020-10-28] MEDS ORDERED: TAMSULOSIN HCL 0.4 MG CAP ONE (09:39)
[2020-10-28] MEDS: TAMSULOSIN HCL 0.4 MG CAP PO SCH (09:58)
[2020-10-28] MEDS ORDERED: PANTOPRAZOLE 40 MG TABLET ONE (10:04)
[2020-10-28] MEDS ORDERED: ASCORBIC ACID 500 MG TABLET (FP) ONE (10:04)
[2020-10-28 10:05] LABS: BASO % 0.7 % (0-2.0); HEMATOCRIT 24.9 % (35.4-49); LYMPH % 19.3 % (8-40); MCH 27.8 pg (25.7-33.7); MCHC 32.2 g/dl (32.0-35.9); MEAN CELL VOLUME 86.3 fl (80-96); MONO % 11.2 % (3.8-10.2); NEUT % 62.8 % (42.8-82.8); PLATELET COUNT 243 K/MM3 (134-434); RBC 2.88 M/mm3 (4.00-5.60); RDW 14.2 % (11.9-15.9)
[2020-10-28] MEDS ORDERED: PT OWN MED DRAWER 7, Y5N ONE (10:05)
[2020-10-28] MEDS ORDERED: CEFTRIAXONE 1 GM/50 ML BAG ONE (10:05)
[2020-10-28] MEDS: VENLAFAXINE HCL 25 MG TABLET PO SCH (10:08)
[2020-10-28] MEDS: CEFTRIAXONE 1 GM in DEXTROSE 5%-WATER - 50 ML IVPB SCH (10:08)
[2020-10-28] MEDS: PANTOPRAZOLE 40 MG TABLET PO SCH (10:08)
[2020-10-28 10:29] LABS: POTASSIUM 4.3 mmol/L (3.5-5.1)
[2020-10-28 10:30] LABS: CALCIUM 8.8 mg/dL (8.5-10.1)
[2020-10-28 10:31] LABS: ALBUMIN 3.3 g/dl (3.4-5.0)
[2020-10-28] MEDS: D5-1/2NS+10 MEQ KCL - 10 MEQ/1,000 ML INFUS.BAG IV SCH (10:33)
[2020-10-28 10:34] LABS: CREATININE 1.8 mg/dL (0.55-1.3)
[2020-10-28 10:36] LABS: TOT PROT 6.5 g/dl (6.4-8.2)
[2020-10-28 10:56] LABS: BILIRUBIN,TOTAL 0.2 mg/dL (0.2-1)
[2020-10-28 21:16] VITALS: BMI 27.6
[2020-10-29] MEDS ORDERED: DEXTROSE 5%-WATER - 50 ML IVPB ONE (08:45)
[2020-10-29] MEDS ORDERED: PT OWN MED DRAWER 7, Y5N ONE (08:45)
[2020-10-29] MEDS ORDERED: cefTRIAXone SODIUM 1 GM VIAL ONE (08:45)
[2020-10-29] MEDS: PANTOPRAZOLE 40 MG TABLET PO SCH (09:47)
[2020-10-29] MEDS: TAMSULOSIN HCL 0.4 MG CAP PO SCH (09:47)
[2020-10-29] MEDS: MEMANTINE HCL 10 MG TABLET (FP) PO SCH ×2 (09:48→21:49)
[2020-10-29] MEDS: CEFTRIAXONE 1 GM in DEXTROSE 5%-WATER - 50 ML IVPB SCH (09:48)
[2020-10-29] MEDS: RIVASTIGMINE TARTRATE 1.5 MG CAPSULE PO SCH ×2 (09:48→21:49)
[2020-10-29] MEDS: ASCORBIC ACID 250 MG TABLET (FP) PO SCH ×2 (09:48→21:49)
[2020-10-29] MEDS: VENLAFAXINE HCL 25 MG TABLET PO SCH (09:48)
[2020-10-29] MEDS: D5-1/2NS+10 MEQ KCL - 10 MEQ/1,000 ML INFUS.BAG IV SCH (09:49)
[2020-10-29 12:33] LABS: EOS % 6.5 % (0-4.5); HEMATOCRIT 25.6 % (35.4-49); HEMOGLOBIN 8.4 GM/dL (11.7-16.9); LYMPH % 22.3 % (8-40); MCH 28.4 pg (25.7-33.7); MCHC 32.8 g/dl (32.0-35.9); MEAN CELL VOLUME 86.7 fl (80-96); MONO % 9.8 % (3.8-10.2); NEUT % 60.4 % (42.8-82.8); PLATELET COUNT 246 K/MM3 (134-434); RBC 2.95 M/mm3 (4.00-5.60); RDW 14.7 % (11.9-15.9); WHITE BLOOD COUNT 8.8 K/mm3 (4.0-10.0)
[2020-10-29 12:46] LABS: POTASSIUM 4.6 mmol/L (3.5-5.1)
[2020-10-29 12:52] LABS: CALCIUM 9.1 mg/dL (8.5-10.1)
[2020-10-29 12:53] LABS: ALBUMIN 3.5 g/dl (3.4-5.0); BLOOD UREA NITROGEN 29.4 mg/dL (7-18)
[2020-10-29 12:56] LABS: CREATININE 1.8 mg/dL (0.55-1.3)
[2020-10-29 12:58] LABS: BILIRUBIN,TOTAL 0.3 mg/dL (0.2-1); TOT PROT 6.8 g/dl (6.4-8.2)
[2020-10-29] MEDS: MIRTAZAPINE 15 MG TABLET (FP) PO SCH (21:48)
[2020-10-30] MEDS ORDERED: PT OWN MED DRAWER 7, Y5N ONE ×3 (00:45→21:12)
[2020-10-30] MEDS ORDERED: LORazepam 2 MG/ML SDV VIAL IVPUSH ONE (04:15)
[2020-10-30] MEDS ORDERED: cefTRIAXone SODIUM 1 GM VIAL ONE (08:46)
[2020-10-30] MEDS ORDERED: DEXTROSE 5%-WATER - 50 ML IVPB ONE (08:46)
[2020-10-30] MEDS: PANTOPRAZOLE 40 MG TABLET PO SCH (09:06)
[2020-10-30] MEDS: CEFTRIAXONE 1 GM in DEXTROSE 5%-WATER - 50 ML IVPB SCH (09:06)
[2020-10-30] MEDS: MEMANTINE HCL 10 MG TABLET (FP) PO SCH ×2 (09:06→21:20)
[2020-10-30] MEDS: TAMSULOSIN HCL 0.4 MG CAP PO SCH (09:06)
[2020-10-30] MEDS: VENLAFAXINE HCL 25 MG TABLET PO SCH (09:07)
[2020-10-30] MEDS: ASCORBIC ACID 250 MG TABLET (FP) PO SCH ×2 (09:08→21:18)
[2020-10-30] MEDS: RIVASTIGMINE TARTRATE 1.5 MG CAPSULE PO SCH ×2 (09:08→21:18)
[2020-10-30] MEDS: D5-1/2NS+10 MEQ KCL - 10 MEQ/1,000 ML INFUS.BAG IV SCH ×2 (09:45→19:03)
[2020-10-30 11:37] LABS: BASO % 1.2 % (0-2.0); HEMATOCRIT 24.3 % (35.4-49); HEMOGLOBIN 7.9 GM/dL (11.7-16.9); LYMPH % 24.9 % (8-40); MCH 28.2 pg (25.7-33.7); MCHC 32.3 g/dl (32.0-35.9); MEAN CELL VOLUME 87.2 fl (80-96); MEAN PLT VOLUME 8.2 fl (7.5-11.1); MONO % 8.4 % (3.8-10.2); NEUT % 57.5 % (42.8-82.8); PLATELET COUNT 243 K/MM3 (134-434); RBC 2.79 M/mm3 (4.00-5.60); WHITE BLOOD COUNT 7.6 K/mm3 (4.0-10.0)
[2020-10-30 12:06] LABS: POTASSIUM 4.2 mmol/L (3.5-5.1)
[2020-10-30 12:11] LABS: ALBUMIN 3.5 g/dl (3.4-5.0); BLOOD UREA NITROGEN 32.3 mg/dL (7-18); CALCIUM 8.6 mg/dL (8.5-10.1)
[2020-10-30 12:13] LABS: CREATININE 2.1 mg/dL (0.55-1.3)
[2020-10-30 12:15] LABS: BILIRUBIN,TOTAL 0.4 mg/dL (0.2-1); TOT PROT 6.6 g/dl (6.4-8.2)
[2020-10-30] MEDS: MIRTAZAPINE 15 MG TABLET (FP) PO SCH (21:19)
[2020-10-31] MEDS: D5-1/2NS+10 MEQ KCL - 10 MEQ/1,000 ML INFUS.BAG IV SCH ×2 (05:23→21:02)
[2020-10-31 08:01] LABS: BASO % 2.2 % (0-2.0); EOS % 9.4 % (0-4.5); HEMOGLOBIN 7.9 GM/dL (11.7-16.9); MCH 28.5 pg (25.7-33.7); MCHC 32.9 g/dl (32.0-35.9); MEAN CELL VOLUME 86.7 fl (80-96); MEAN PLT VOLUME 7.9 fl (7.5-11.1); MONO % 9.1 % (3.8-10.2); NEUT % 57.3 % (42.8-82.8); PLATELET COUNT 268 K/MM3 (134-434); RBC 2.77 M/mm3 (4.00-5.60); RDW 14.1 % (11.9-15.9); WHITE BLOOD COUNT 7.7 K/mm3 (4.0-10.0)
[2020-10-31 08:12] LABS: CALCIUM 8.9 mg/dL (8.5-10.1)
[2020-10-31 08:13] LABS: ALBUMIN 3.2 g/dl (3.4-5.0); BLOOD UREA NITROGEN 26.9 mg/dL (7-18)
[2020-10-31 08:16] LABS: CREATININE 1.9 mg/dL (0.55-1.3)
[2020-10-31 08:18] LABS: BILIRUBIN,TOTAL 0.2 mg/dL (0.2-1); TOT PROT 6.3 g/dl (6.4-8.2)
[2020-10-31] MEDS ORDERED: cefTRIAXone SODIUM 1 GM VIAL ONE (08:41)
[2020-10-31] MEDS ORDERED: DEXTROSE 5%-WATER - 50 ML IVPB ONE (08:41)
[2020-10-31] MEDS: CEFTRIAXONE 1 GM in DEXTROSE 5%-WATER - 50 ML IVPB SCH (09:23)
[2020-10-31] MEDS: PANTOPRAZOLE 40 MG TABLET PO SCH (09:24)
[2020-10-31] MEDS: TAMSULOSIN HCL 0.4 MG CAP PO SCH (09:24)
[2020-10-31] MEDS: MEMANTINE HCL 10 MG TABLET (FP) PO SCH ×2 (09:24→21:01)
[2020-10-31] MEDS: RIVASTIGMINE TARTRATE 1.5 MG CAPSULE PO SCH ×2 (09:26→21:01)
[2020-10-31] MEDS: VENLAFAXINE HCL 25 MG TABLET PO SCH (09:27)
[2020-10-31] MEDS: ASCORBIC ACID 250 MG TABLET (FP) PO SCH ×2 (09:28→21:01)
[2020-10-31] MEDS: MIRTAZAPINE 15 MG TABLET (FP) PO SCH (21:01)
[2020-11-01 08:23] LABS: POTASSIUM 4.3 mmol/L (3.5-5.1)
[2020-11-01 08:26] LABS: ALBUMIN 3.1 g/dl (3.4-5.0); CALCIUM 8.6 mg/dL (8.5-10.1)
[2020-11-01 08:30] LABS: CREATININE 1.9 mg/dL (0.55-1.3)
[2020-11-01 08:31] LABS: BILIRUBIN,TOTAL 0.4 mg/dL (0.2-1); TOT PROT 6.3 g/dl (6.4-8.2)
[2020-11-01 08:53] LABS: BASO % 1.2 % (0-2.0); EOS % 5.7 % (0-4.5); HEMATOCRIT 23.3 % (35.4-49); HEMOGLOBIN 7.7 GM/dL (11.7-16.9); LYMPH % 19.6 % (8-40); MCH 28.5 pg (25.7-33.7); MCHC 33.1 g/dl (32.0-35.9); MEAN CELL VOLUME 86.1 fl (80-96); MEAN PLT VOLUME 8.2 fl (7.5-11.1); NEUT % 64.5 % (42.8-82.8); PLATELET COUNT 278 K/MM3 (134-434); RBC 2.71 M/mm3 (4.00-5.60); RDW 14.2 % (11.9-15.9); WHITE BLOOD COUNT 9.2 K/mm3 (4.0-10.0)
[2020-11-01] MEDS ORDERED: cefTRIAXone SODIUM 1 GM VIAL ONE (10:06)
[2020-11-01] MEDS ORDERED: DEXTROSE 5%-WATER - 50 ML IVPB ONE (10:06)
[2020-11-01] MEDS ORDERED: PT OWN MED DRAWER 7, Y5N ONE ×3 (10:06→22:39)
[2020-11-01] MEDS ORDERED: IRON SUCROSE INJECTION 100 MG in SODIUM CHLORIDE 95 ML IVPB ONE (10:07)
[2020-11-01] MEDS: CEFTRIAXONE 1 GM in DEXTROSE 5%-WATER - 50 ML IVPB SCH (10:10)
[2020-11-01] MEDS: MEMANTINE HCL 10 MG TABLET (FP) PO SCH ×2 (10:11→21:00)
[2020-11-01] MEDS: PANTOPRAZOLE 40 MG TABLET PO SCH (10:11)
[2020-11-01] MEDS: TAMSULOSIN HCL 0.4 MG CAP PO SCH (10:11)
[2020-11-01] MEDS: VENLAFAXINE HCL 25 MG TABLET PO SCH (10:12)
[2020-11-01] MEDS: ASCORBIC ACID 250 MG TABLET (FP) PO SCH ×2 (10:12→22:31)
[2020-11-01] MEDS: RIVASTIGMINE TARTRATE 1.5 MG CAPSULE PO SCH ×2 (10:12→21:00)
[2020-11-01] MEDS: D5-1/2NS+10 MEQ KCL - 10 MEQ/1,000 ML INFUS.BAG IV SCH (11:41)
[2020-11-01] MEDS: MIRTAZAPINE 15 MG TABLET (FP) PO SCH (21:00)
[2020-11-01] MEDS: CEFUROXIME AXETIL 250 MG TABLET PO SCH (21:00)
[2020-11-02] MEDS: D5-1/2NS+10 MEQ KCL - 10 MEQ/1,000 ML INFUS.BAG IV SCH ×3 (00:28→13:53)
[2020-11-02 08:06] LABS: BASO % 1.3 % (0-2.0); EOS % 5.3 % (0-4.5); HEMATOCRIT 23.7 % (35.4-49); HEMOGLOBIN 7.9 GM/dL (11.7-16.9); LYMPH % 22.3 % (8-40); MCH 28.9 pg (25.7-33.7); MCHC 33.5 g/dl (32.0-35.9); MEAN CELL VOLUME 86.3 fl (80-96); MEAN PLT VOLUME 8.4 fl (7.5-11.1); MONO % 8.8 % (3.8-10.2); NEUT % 62.3 % (42.8-82.8); PLATELET COUNT 292 K/MM3 (134-434); RBC 2.75 M/mm3 (4.00-5.60); WHITE BLOOD COUNT 9.7 K/mm3 (4.0-10.0)
[2020-11-02] MEDS ORDERED: PT OWN MED DRAWER 7, Y5N ONE ×2 (09:42→21:04)
[2020-11-02] MEDS: PANTOPRAZOLE 40 MG TABLET PO SCH (09:44)
[2020-11-02] MEDS: ASCORBIC ACID 250 MG TABLET (FP) PO SCH ×2 (09:44→22:25)
[2020-11-02] MEDS: TAMSULOSIN HCL 0.4 MG CAP PO SCH (09:44)
[2020-11-02] MEDS: MEMANTINE HCL 10 MG TABLET (FP) PO SCH ×2 (09:44→22:25)
[2020-11-02] MEDS: RIVASTIGMINE TARTRATE 1.5 MG CAPSULE PO SCH ×2 (09:45→22:25)
[2020-11-02] MEDS: CEFUROXIME AXETIL 250 MG TABLET PO SCH ×2 (09:45→22:26)
[2020-11-02] MEDS: VENLAFAXINE HCL 25 MG TABLET PO SCH (09:46)
[2020-11-02] MEDS: MIRTAZAPINE 15 MG TABLET (FP) PO SCH (22:25)
[2020-11-03] MEDS: D5-1/2NS+10 MEQ KCL - 10 MEQ/1,000 ML INFUS.BAG IV SCH ×3 (03:25→17:01)
[2020-11-03 09:13] LABS: BASO % 1.1 % (0-2.0); HEMATOCRIT 22.9 % (35.4-49); HEMOGLOBIN 7.6 GM/dL (11.7-16.9); MCH 28.7 pg (25.7-33.7); MCHC 33.3 g/dl (32.0-35.9); MONO % 10.1 % (3.8-10.2); NEUT % 63.8 % (42.8-82.8); PLATELET COUNT 297 K/MM3 (134-434); RBC 2.67 M/mm3 (4.00-5.60)
[2020-11-03] MEDS: TAMSULOSIN HCL 0.4 MG CAP PO SCH (10:04)
[2020-11-03] MEDS: PANTOPRAZOLE 40 MG TABLET PO SCH (10:04)
[2020-11-03] MEDS: MEMANTINE HCL 10 MG TABLET (FP) PO SCH ×2 (10:04→22:11)
[2020-11-03] MEDS: ASCORBIC ACID 250 MG TABLET (FP) PO SCH ×2 (10:04→22:12)
[2020-11-03] MEDS: CEFUROXIME AXETIL 250 MG TABLET PO SCH ×2 (11:53→22:12)
[2020-11-03] MEDS: VENLAFAXINE HCL 25 MG TABLET PO SCH (11:54)
[2020-11-03] MEDS: RIVASTIGMINE TARTRATE 1.5 MG CAPSULE PO SCH ×2 (11:55→22:11)
[2020-11-03] MEDS: MIRTAZAPINE 15 MG TABLET (FP) PO SCH (22:11)
[2020-11-04] MEDS: D5-1/2NS+10 MEQ KCL - 10 MEQ/1,000 ML INFUS.BAG IV SCH ×2 (05:59→10:23)
[2020-11-04 07:44] LABS: BASO % 1.3 % (0-2.0); EOS % 5.9 % (0-4.5); HEMATOCRIT 23.9 % (35.4-49); HEMOGLOBIN 7.9 GM/dL (11.7-16.9); LYMPH % 22.3 % (8-40); MCH 28.6 pg (25.7-33.7); MCHC 33.2 g/dl (32.0-35.9); MEAN CELL VOLUME 86.2 fl (80-96); MEAN PLT VOLUME 7.8 fl (7.5-11.1); MONO % 10.5 % (3.8-10.2); PLATELET COUNT 352 K/MM3 (134-434); RBC 2.77 M/mm3 (4.00-5.60); RDW 14.2 % (11.9-15.9); WHITE BLOOD COUNT 10.2 K/mm3 (4.0-10.0)
[2020-11-04] MEDS ORDERED: PT OWN MED DRAWER 7, Y5N ONE (10:21)
[2020-11-04] MEDS: RIVASTIGMINE TARTRATE 1.5 MG CAPSULE PO SCH ×2 (10:22→21:16)
[2020-11-04] MEDS: ASCORBIC ACID 250 MG TABLET (FP) PO SCH ×2 (10:23→21:17)
[2020-11-04] MEDS: PANTOPRAZOLE 40 MG TABLET PO SCH (10:23)
[2020-11-04] MEDS: MEMANTINE HCL 10 MG TABLET (FP) PO SCH ×2 (10:23→21:15)
[2020-11-04] MEDS: VENLAFAXINE HCL 25 MG TABLET PO SCH (10:23)
[2020-11-04] MEDS: TAMSULOSIN HCL 0.4 MG CAP PO SCH (10:23)
[2020-11-04] MEDS: CEFUROXIME AXETIL 250 MG TABLET PO SCH (10:24)
[2020-11-04] MEDS: MIRTAZAPINE 15 MG TABLET (FP) PO SCH (21:16)
[2020-11-05] MEDS ORDERED: PT OWN MED DRAWER 7, Y5N ONE (09:07)
[2020-11-05] MEDS: ASCORBIC ACID 250 MG TABLET (FP) PO SCH (10:03)
[2020-11-05] MEDS: PANTOPRAZOLE 40 MG TABLET PO SCH (10:03)
[2020-11-05] MEDS: VENLAFAXINE HCL 25 MG TABLET PO SCH (10:04)
[2020-11-05] MEDS: RIVASTIGMINE TARTRATE 1.5 MG CAPSULE PO SCH (10:04)
[2020-11-05] MEDS: TAMSULOSIN HCL 0.4 MG CAP PO SCH (10:04)
[2020-11-05] MEDS: MEMANTINE HCL 10 MG TABLET (FP) PO SCH (10:05)
[2020-11-05 15:01] VITALS: BP 121/64; PULSE 74; TEMP 98.5
== END 2020-11-05 15:54 | DRG 690 ==
LOC: JER 22:49 → JERBED 10-27 07:11 → J4W 10-28 17:33 → J8W 10-29 11:20
PROVIDERS: ADMIT Internal Medicine; ATTEND Internal Medicine
DX: N13.6 Pyonephrosis (principal); N17.9 Acute kidney failure, unspecified; R31.0 Gross hematuria; I25.10 Atherosclerotic heart disease of native coronary artery without angina pectoris; F03.90 Unspecified dementia, unspecified severity, without behavioral disturbance, psychotic disturbance, mood disturbance, and anxiety; R33.9 Retention of urine, unspecified; R42 Dizziness and giddiness; N18.9 Chronic kidney disease, unspecified; R55 Syncope and collapse; E86.0 Dehydration; D50.9 Iron deficiency anemia, unspecified; R79.89 Other specified abnormal findings of blood chemistry; N40.1 Benign prostatic hyperplasia with lower urinary tract symptoms; R33.8 Other retention of urine; N30.81 Other cystitis with hematuria; R26.81 Unsteadiness on feet; Z90.79 Acquired absence of other genital organ(s); Z85.46 Personal history of malignant neoplasm of prostate
CPT/HCPCS: 36415; 71046-TC-FY; 80053; 81003; 82550; 82728; 83540; 83550; 84484; 85025; 85610; 85651; 85730; 86140; 86850; 86900; 86901; 87040; 87086; 93005; 93010; 93306-TC; 97116-GP; 97161-GP; 99285-25; C9803; J1756; U0003

== ENCOUNTER 2021-07-20 19:57 | Emergency (ER) | payer OTHER ==
[2021-07-20 20:06] VITALS: BMI 28.2
[2021-07-21 06:48] VITALS: BP 114/90; PULSE 86; TEMP 98.6
== END 2021-07-21 08:39 | disposition home or self-care (01) ==
LOC: JER 19:57
DX: R51.9 Headache, unspecified (principal); M54.2 Cervicalgia; M54.5 Low back pain; W19.XXXA Unspecified fall, initial encounter
CPT/HCPCS: 70450-TC; 71045-TC-FY; 72125-TC; 72128-TC; 72170-TC-FY; 99285-25

== ENCOUNTER 2022-05-29 11:00 | Observation (INO) | payer OTHER ==
[2022-05-29 13:22] LABS: BASO % 0.9 % (0-2.0); EOS % 3.3 % (0-4.5); HEMATOCRIT 35.8 % (35.4-49); HEMOGLOBIN 11.4 GM/dL (11.7-16.9); LYMPH % 17.1 % (8-40); MCH 25.4 pg (25.7-33.7); MCHC 31.7 g/dl (32.0-35.9); MEAN CELL VOLUME 80.2 fl (80-96); MEAN PLT VOLUME 8.4 fl (7.5-11.1); MONO % 6.4 % (3.8-10.2); NEUT % 72.3 % (42.8-82.8); PLATELET COUNT 296 10^3/uL (134-434); RBC 4.46 M/mm3 (4.00-5.60); RDW 16.6 % (11.9-15.9); WHITE BLOOD COUNT 8.5 K/mm3 (4.0-10.0)
[2022-05-29 13:24] LABS: VENOUS BASE EXCESS -4.4 mmol/L (-2-2); VENOUS O2 SATURATION 63.5 % (70-80); VENOUS PH 7.318 (7.310-7.410)
[2022-05-29 13:27] LABS: INR 1.07 (0.83-1.09); PROTHROMBIN TIME (PATIENT) 12.3 SEC (9.7-13.0)
[2022-05-29 13:30] LABS: ACTIVATED PTT 32.6 SECONDS (25.2-36.5)
[2022-05-29 13:42] LABS: CALCIUM 9.1 mg/dL (8.5-10.1)
[2022-05-29 13:43] LABS: ALBUMIN 3.5 g/dl (3.4-5.0); BLOOD UREA NITROGEN 21.1 mg/dL (7-18); MAGNESIUM 2.4 mg/dL (1.8-2.4)
[2022-05-29 13:48] LABS: BILIRUBIN,TOTAL 0.4 mg/dL (0.2-1); TOT PROT 7.1 g/dl (6.4-8.2)
[2022-05-29] MEDS ORDERED: SODIUM CHLORIDE 500 ML IV STA (14:39)
[2022-05-29] MEDS: DEXTROSE 5%-0.45% SALINE 1,000 ML IV SCH (18:00)
[2022-05-30] MEDS: HEPARIN NA (PORCINE) 5,000 UNITS/ML 1ML VIAL SQ SCH ×4 (00:25→22:55)
[2022-05-30] MEDS: MEMANTINE HCL 10 MG TABLET (FP) PO SCH ×3 (00:25→22:55)
[2022-05-30 04:33] VITALS: BMI 31.8
[2022-05-30] MEDS: DEXTROSE 5%-0.45% SALINE 1,000 ML IV SCH (06:32)
[2022-05-30] MEDS: TAMSULOSIN HCL 0.4 MG CAP PO SCH (08:21)
[2022-05-30] MEDS ORDERED: DEXTROSE 5%-0.45% SALINE 1,000 ML IV SCH (08:22)
[2022-05-30 09:11] LABS: HEMATOCRIT 36.5 % (35.4-49); HEMOGLOBIN 11.6 GM/dL (11.7-16.9); MCH 25.6 pg (25.7-33.7); MCHC 31.8 g/dl (32.0-35.9); MEAN CELL VOLUME 80.2 fl (80-96); MEAN PLT VOLUME 8.8 fl (7.5-11.1); PLATELET COUNT 291 10^3/uL (134-434); RBC 4.55 M/mm3 (4.00-5.60); RDW 16.3 % (11.9-15.9); WHITE BLOOD COUNT 7.3 K/mm3 (4.0-10.0)
[2022-05-30 09:14] LABS: CALCIUM 8.9 mg/dL (8.5-10.1)
[2022-05-30 09:15] LABS: ALBUMIN 3.4 g/dl (3.4-5.0); BLOOD UREA NITROGEN 16.3 mg/dL (7-18); MAGNESIUM 2.3 mg/dL (1.8-2.4)
[2022-05-30 09:18] LABS: CREATININE 1.8 mg/dL (0.55-1.3); PHOSPHOROUS 2.8 mg/dL (2.5-4.9)
[2022-05-30 09:19] LABS: BILIRUBIN,TOTAL 0.4 mg/dL (0.2-1); TOT PROT 6.9 g/dl (6.4-8.2)
[2022-05-30] MEDS: PANTOPRAZOLE 40 MG TABLET PO SCH (10:46)
[2022-05-30] MEDS: predniSONE 5 MG TABLET (UD) PO SCH (10:46)
[2022-05-30] MEDS: VENLAFAXINE HCL 75 MG E.R. CAPSULES PO SCH (10:46)
[2022-05-30 22:54] LABS: EPI CELLS 4 /uL (0-25.1); HYALINE CASTS 0 /uL (0-3.1); URINE APPEARANCE CLEAR; URINE BACTERIA 15 /uL (0-1359); URINE BILIRUBIN NEGATIVE (NEGATIVE); URINE COLOR YELLOW; URINE GLUCOSE (UA) NEGATIVE (NEGATIVE); URINE KETONE NEGATIVE (NEGATIVE); URINE LEUK ESTERASE TRACE (NEGATIVE); URINE NITRITE NEGATIVE (NEGATIVE); URINE PROTEIN NEGATIVE (NEGATIVE); URINE RBC 24 /uL (0-23.9); URINE WBC 20 /uL (0-25.8)
[2022-05-31] MEDS: HEPARIN NA (PORCINE) 5,000 UNITS/ML 1ML VIAL SQ SCH ×3 (06:24→23:00)
[2022-05-31] MEDS: TAMSULOSIN HCL 0.4 MG CAP PO SCH (08:44)
[2022-05-31] MEDS: VENLAFAXINE HCL 75 MG E.R. CAPSULES PO SCH (09:29)
[2022-05-31] MEDS: PANTOPRAZOLE 40 MG TABLET PO SCH (09:29)
[2022-05-31] MEDS: predniSONE 5 MG TABLET (UD) PO SCH (09:29)
[2022-05-31] MEDS: MEMANTINE HCL 10 MG TABLET (FP) PO SCH ×2 (09:29→23:00)
[2022-06-01] MEDS: HEPARIN NA (PORCINE) 5,000 UNITS/ML 1ML VIAL SQ SCH ×3 (05:37→22:31)
[2022-06-01] MEDS: TAMSULOSIN HCL 0.4 MG CAP PO SCH (08:56)
[2022-06-01] MEDS: predniSONE 5 MG TABLET (UD) PO SCH (10:44)
[2022-06-01] MEDS: PANTOPRAZOLE 40 MG TABLET PO SCH (10:44)
[2022-06-01] MEDS: VENLAFAXINE HCL 75 MG E.R. CAPSULES PO SCH (10:44)
[2022-06-01] MEDS: MEMANTINE HCL 10 MG TABLET (FP) PO SCH ×2 (11:10→22:31)
[2022-06-01] MEDS: ABIRATERONE ACETATE 250 MG PO SCH ×2 (17:06→17:13)
[2022-06-01] MEDS: RIVASTIGMINE TD SCH ×2 (17:06→17:13)
[2022-06-02] MEDS: HEPARIN NA (PORCINE) 5,000 UNITS/ML 1ML VIAL SQ SCH (06:00)
[2022-06-02 07:25] VITALS: BP 145/82; PULSE 60; TEMP 97.9
[2022-06-02] MEDS: TAMSULOSIN HCL 0.4 MG CAP PO SCH (08:46)
[2022-06-02] MEDS: predniSONE 5 MG TABLET (UD) PO SCH (09:17)
[2022-06-02] MEDS: PANTOPRAZOLE 40 MG TABLET PO SCH (09:17)
[2022-06-02] MEDS: VENLAFAXINE HCL 75 MG E.R. CAPSULES PO SCH (09:17)
[2022-06-02] MEDS: MEMANTINE HCL 10 MG TABLET (FP) PO SCH (09:17)
[2022-06-02] MEDS ORDERED: TOBRAMYCIN 0.3% OPHTH OINT 3.5 GM OU SCH (10:00)
[2022-06-02] MEDS ORDERED: TOBRAMYCIN 0.3% OPHTH SOLN 5 ML BOTTLE OU SCH (10:13)
[2022-06-02 10:29] VITALS: RESP 18
[2022-06-02] MEDS ORDERED: DONEPEZIL HCL 5 MG TABLET (FP) PO SCH (22:00)
== END 2022-06-02 12:17 | disposition home or self-care (01) ==
LOC: JER 11:00 → JERBED 14:04 → J7W 19:19
PROVIDERS: ADMIT Internal Medicine; ATTEND Internal Medicine
PROC: 3E033GC Introduction of Other Therapeutic Substance into Peripheral Vein, Percutaneous Approach (ICD-10-PCS; principal; 2022-05-29)
PROC: 3E023GC Introduction of Other Therapeutic Substance into Muscle, Percutaneous Approach (ICD-10-PCS; 2022-05-29)
PROC: 3E0337Z Introduction of Electrolytic and Water Balance Substance into Peripheral Vein, Percutaneous Approach (ICD-10-PCS; 2022-05-29)
DX: F03.90 Unspecified dementia, unspecified severity, without behavioral disturbance, psychotic disturbance, mood disturbance, and anxiety (principal); N18.9 Chronic kidney disease, unspecified; F41.8 Other specified anxiety disorders; E66.9 Obesity, unspecified; Z68.31 Body mass index [BMI] 31.0-31.9, adult; Z85.46 Personal history of malignant neoplasm of prostate; Z95.5 Presence of coronary angioplasty implant and graft; Z29.8 Encounter for other specified prophylactic measures
CPT/HCPCS: 0241U-QW; 36415; 70450-TC; 71045-TC-FY; 80053; 81003; 82140; 82803; 83735; 84100; 84439; 84443; 84484; 85025; 85027; 85610; 85730; 86850; 86900; 86901; 87086; 93005; 93010; 96361; 96365; 96366; 96372; 97116-GP; 97162-GP; 99285-25; G0378; J1644

== ENCOUNTER 2022-08-13 13:55 | Emergency (ER) | payer OTHER ==
[2022-08-13] MEDS ORDERED: SODIUM CHLORIDE 0.9% 500 ML INFUS.BAG IV ONE ×2 (14:47→18:48)
[2022-08-13 14:49] VITALS: RESP 18; BMI 41.9
[2022-08-13 16:51] LABS: EPI CELLS 8 /uL (0-25.1); HYALINE CASTS 3 /uL (0-3.1); URINE APPEARANCE CLOUDY; URINE BACTERIA 1 /uL (0-1359); URINE BILIRUBIN NEGATIVE (NEGATIVE); URINE COLOR DK YELLOW; URINE GLUCOSE (UA) NEGATIVE (NEGATIVE); URINE KETONE TRACE (NEGATIVE); URINE LEUK ESTERASE NEGATIVE (NEGATIVE); URINE NITRITE NEGATIVE (NEGATIVE); URINE PROTEIN 1+ (NEGATIVE); URINE RBC 63 /uL (0-23.9); URINE UROBILINOGEN 0.2 mg/dL (0.2-1.0); URINE WBC 6 /uL (0-25.8)
[2022-08-13 18:28] LABS: HEMATOCRIT 38.6 % (35.4-49); HEMOGLOBIN 12.2 GM/dL (11.7-16.9); MCHC 31.6 g/dl (32.0-35.9); MEAN CELL VOLUME 82.2 fl (80-96); MEAN PLT VOLUME 9.3 fl (7.5-11.1); PLATELET COUNT 220 10^3/uL (134-434); RBC 4.69 M/mm3 (4.00-5.60); RDW 16.1 % (11.9-15.9); WHITE BLOOD COUNT 7.9 K/mm3 (4.0-10.0)
[2022-08-13 18:39] LABS: ALBUMIN 3.4 g/dl (3.4-5.0); BLOOD UREA NITROGEN 36.5 mg/dL (7-18); CALCIUM 8.9 mg/dL (8.5-10.1); MAGNESIUM 2.3 mg/dL (1.8-2.4)
[2022-08-13 18:42] LABS: CREATININE 3.2 mg/dL (0.55-1.3)
[2022-08-13 18:43] LABS: BILIRUBIN,TOTAL 0.5 mg/dL (0.2-1)
[2022-08-13 18:44] LABS: TOT PROT 6.8 g/dl (6.4-8.2)
[2022-08-13 20:49] LABS: ANISOCYTOSIS 2+; MACROCYTOSIS 0; OVALOCYTE 2+
[2022-08-14 01:31] VITALS: BP 121/86; PULSE 88; TEMP 98.1
== END 2022-08-14 01:32 ==
LOC: JER 13:55
DX: N17.9 Acute kidney failure, unspecified (principal); R41.82 Altered mental status, unspecified
CPT/HCPCS: 36415; 70450-TC; 71045-TC-FY; 80053; 81003; 83605; 83735; 84100; 84484; 85025; 87040; 87086; 93005; 93010; 99284-25; C9803-CS; U0003; U0005

== ENCOUNTER 2022-10-25 19:12 | Emergency (ER) | payer OTHER ==
[2022-10-25 19:37] VITALS: BP 146/66; PULSE 59; RESP 18; TEMP 98.2; BMI 29.8
[2022-10-25] MEDS ORDERED: ACETAMINOPHEN 1000 MG/100 ML BAG IVPB ONE (20:01)
[2022-10-25] MEDS ORDERED: ACETAMINOPHEN INJECTION 100 ML IVPB ONE (20:29)
[2022-10-25 21:05] LABS: BASO % 0.8 % (0-2.0); HEMATOCRIT 35.6 % (35.4-49); HEMOGLOBIN 11.9 GM/dL (11.7-16.9); LYMPH % 18.2 % (8-40); MCH 28.4 pg (25.7-33.7); MCHC 33.5 g/dl (32.0-35.9); MEAN CELL VOLUME 84.6 fl (80-96); MEAN PLT VOLUME 8.6 fl (7.5-11.1); MONO % 7.3 % (3.8-10.2); NEUT % 71.7 % (42.8-82.8); PLATELET COUNT 250 10^3/uL (134-434); RDW 15.6 % (11.9-15.9); WHITE BLOOD COUNT 10.6 K/mm3 (4.0-10.0)
[2022-10-25 21:13] LABS: INR 1.05 (0.83-1.09); PROTHROMBIN TIME (PATIENT) 12.1 SEC (9.7-13.0)
[2022-10-25 21:16] LABS: ACTIVATED PTT 30.5 SECONDS (25.2-36.5)
[2022-10-25 21:23] LABS: CALCIUM 8.8 mg/dL (8.5-10.1)
[2022-10-25 21:24] LABS: ALBUMIN 3.4 g/dl (3.4-5.0)
[2022-10-25 21:28] LABS: TOT PROT 6.8 g/dl (6.4-8.2)
[2022-10-25 21:29] LABS: BILIRUBIN,TOTAL 0.3 mg/dL (0.2-1)
== END 2022-10-26 01:09 | disposition home or self-care (01) ==
LOC: JER 19:12
PROC: 3E0333Z Introduction of Anti-inflammatory into Peripheral Vein, Percutaneous Approach (ICD-10-PCS; principal; 2022-10-25)
DX: R91.1 Solitary pulmonary nodule (principal); R51.9 Headache, unspecified; M54.50 Low back pain, unspecified; W01.0XXA Fall on same level from slipping, tripping and stumbling without subsequent striking against object, initial encounter
CPT/HCPCS: 36415; 70450-TC; 71045-TC-FY; 72125-TC; 72128-TC; 72131-TC; 80053; 84484; 85025; 85610; 85730; 93005; 93010; 99285-25

== ENCOUNTER 2022-11-29 21:36 | Emergency (ER) | payer OTHER ==
[2022-11-29 21:59] VITALS: BMI 30.9
[2022-11-29 22:38] LABS: BASO % 1.2 % (0-2.0); EOS % 3.1 % (0-4.5); HEMOGLOBIN 11.7 GM/dL (11.7-16.9); LYMPH % 26.2 % (8-40); MCH 27.6 pg (25.7-33.7); MCHC 32.4 g/dl (32.0-35.9); MEAN CELL VOLUME 85.1 fl (80-96); MONO % 8.4 % (3.8-10.2); NEUT % 61.1 % (42.8-82.8); PLATELET COUNT 260 10^3/uL (134-434); RBC 4.23 M/mm3 (4.00-5.60); RDW 14.8 % (11.9-15.9); WHITE BLOOD COUNT 11.1 K/mm3 (4.0-10.0)
[2022-11-29 23:00] LABS: CALCIUM 8.9 mg/dL (8.5-10.1)
[2022-11-29 23:01] LABS: ALBUMIN 3.6 g/dl (3.4-5.0); BLOOD UREA NITROGEN 31.2 mg/dL (7-18)
[2022-11-29 23:04] LABS: CREATININE 1.9 mg/dL (0.55-1.3)
[2022-11-29 23:05] LABS: BILIRUBIN,TOTAL 0.2 mg/dL (0.2-1)
[2022-11-30 01:50] VITALS: TEMP 97.7
[2022-11-30 05:15] VITALS: BP 128/76; PULSE 64; RESP 18
== END 2022-11-30 05:28 ==
LOC: JER 21:36
DX: Z04.3 Encounter for examination and observation following other accident (principal)
CPT/HCPCS: 0241U-QW; 36415; 70450-TC; 71045-TC-FY; 72125-TC; 72170-TC-FY; 80053; 84484; 85025; 93005; 93010; 99285-25

== ENCOUNTER 2023-03-25 17:16 | Inpatient (IN) | payer OTHER ==
[2023-03-25 19:08] LABS: BASO % 0.7 % (0-2.0); HEMATOCRIT 36.5 % (35.4-49); HEMOGLOBIN 11.9 GM/dL (11.7-16.9); LYMPH % 16.7 % (8-40); MCH 27.7 pg (25.7-33.7); MCHC 32.7 g/dl (32.0-35.9); MEAN CELL VOLUME 84.8 fl (80-96); MEAN PLT VOLUME 8.4 fl (7.5-11.1); MONO % 6.9 % (3.8-10.2); NEUT % 74.7 % (42.8-82.8); PLATELET COUNT 242 10^3/uL (134-434); RBC 4.31 M/mm3 (4.00-5.60); RDW 14.7 % (11.9-15.9); WHITE BLOOD COUNT 11.3 K/mm3 (4.0-10.0)
[2023-03-25 19:28] LABS: ACTIVATED PTT 31.5 SECONDS (25.2-36.5); INR 1.06 (0.83-1.09); PROTHROMBIN TIME (PATIENT) 12.3 SEC (9.7-13.0)
[2023-03-25 19:33] LABS: POTASSIUM 5.7 mmol/L (3.5-5.1)
[2023-03-25 19:38] LABS: ALBUMIN 3.5 g/dl (3.4-5.0); BLOOD UREA NITROGEN 25.7 mg/dL (7-18)
[2023-03-25 19:41] LABS: CREATININE 1.8 mg/dL (0.55-1.3)
[2023-03-25 19:43] LABS: BILIRUBIN,TOTAL 0.4 mg/dL (0.2-1); TOT PROT 6.8 g/dl (6.4-8.2)
[2023-03-25] MEDS ORDERED: CALCIUM GLUC IN NACL, ISO-OSM 1 GM/50 ML BAG IVPB ONE ×2 (19:48→20:11)
[2023-03-25] MEDS ORDERED: SODIUM ZIRCONIUM CYCLOSILICATE (LOKELMA) 5 GM PACKET PO ONE (19:48)
[2023-03-25] MEDS ORDERED: DIPHTH,PERTUSS(ACELL),TET 0.5 ML DISP.SYRIN IM ONE ×2 (21:09→21:42)
[2023-03-25] MEDS ORDERED: SODIUM ZIRCONIUM CYCLOSILICATE (LOKELMA) 5 GM PACKET ONE (21:42)
[2023-03-25 22:43] LABS: EPI CELLS 4 /uL (0-25.1); HYALINE CASTS 5 /uL (0-3.1); URINE APPEARANCE CLEAR; URINE BACTERIA 427 /uL (0-1359); URINE BILIRUBIN NEGATIVE (NEGATIVE); URINE COLOR YELLOW; URINE GLUCOSE (UA) NEGATIVE (NEGATIVE); URINE KETONE NEGATIVE (NEGATIVE); URINE LEUK ESTERASE 2+ (NEGATIVE); URINE NITRITE NEGATIVE (NEGATIVE); URINE PROTEIN TRACE (NEGATIVE); URINE UROBILINOGEN 0.2 mg/dL (0.2-1.0); URINE WBC 406 /uL (0-25.8)
[2023-03-25] MEDS ORDERED: DEXTROSE 50%-WATER - 25 GM/50 ML VIAL IVPUSH ONE (23:27)
[2023-03-25] MEDS ORDERED: INSULIN REGULAR HUMAN 100 UNITS/ML *VIAL IVPUSH ONE (23:27)
[2023-03-25 23:30] LABS: URINE RBC 671 /uL (0-23.9)
[2023-03-25] MEDS ORDERED: SODIUM CHLORIDE 1,000 ML IV SCH (23:30)
[2023-03-25] MEDS ORDERED: CEFTRIAXONE 1 GM in DEXTROSE 5%-WATER - 50 ML IVPB ONE (23:32)
[2023-03-26] MEDS ORDERED: CEFTRIAXONE 1 GM/50 ML BAG ONE (00:18)
[2023-03-26] MEDS ORDERED: DEXTROSE 50%-WATER 25 GM/50 ML DISP.SYRIN ONE (00:18)
[2023-03-26 02:32] LABS: POTASSIUM 3.9 mmol/L (3.5-5.1)
[2023-03-26 02:34] LABS: BLOOD UREA NITROGEN 23.3 mg/dL (7-18); CALCIUM 8.5 mg/dL (8.5-10.1)
[2023-03-26 02:38] LABS: CREATININE 1.7 mg/dL (0.55-1.3)
[2023-03-26 04:03] VITALS: BMI 24.9
[2023-03-26] MEDS: HEPARIN NA (PORCINE) 5,000 UNITS/ML 1ML VIAL SQ SCH ×3 (05:55→21:30)
[2023-03-26 08:29] LABS: POTASSIUM 4.5 mmol/L (3.5-5.1)
[2023-03-26 08:33] LABS: CALCIUM 8.8 mg/dL (8.5-10.1); MAGNESIUM 2.2 mg/dL (1.8-2.4)
[2023-03-26 08:36] LABS: CREATININE 1.6 mg/dL (0.55-1.3)
[2023-03-26 08:37] LABS: PHOSPHOROUS 3.6 mg/dL (2.5-4.9)
[2023-03-26] MEDS ORDERED: CEFTRIAXONE 1 GM in DEXTROSE 5%-WATER - 50 ML IVPB ONE (09:29)
[2023-03-26 12:38] LABS: HEMOGLOBIN 11.5 GM/dL (11.7-16.9); MCH 27.7 pg (25.7-33.7); MCHC 32.7 g/dl (32.0-35.9); MEAN CELL VOLUME 84.6 fl (80-96); MEAN PLT VOLUME 8.5 fl (7.5-11.1); PLATELET COUNT 197 10^3/uL (134-434); RBC 4.14 M/mm3 (4.00-5.60); RDW 14.8 % (11.9-15.9); WHITE BLOOD COUNT 10.2 K/mm3 (4.0-10.0)
[2023-03-26] MEDS: VENLAFAXINE HCL 25 MG TABLET PO SCH (15:04)
[2023-03-26] MEDS: SODIUM CHLORIDE 1,000 ML IV SCH (15:05)
[2023-03-26] MEDS ORDERED: SODIUM ZIRCONIUM CYCLOSILICATE (LOKELMA) 5 GM PACKET PO ONE ×2 (19:48→23:28)
[2023-03-26] MEDS: ASCORBIC ACID 500 MG TABLET (FP) PO SCH (21:29)
[2023-03-26] MEDS: DOCUSATE NA 100 MG/10 ML UNIT-DOSE CUPS PO SCH (21:29)
[2023-03-27] MEDS: SODIUM CHLORIDE 1,000 ML IV SCH ×2 (06:12→14:15)
[2023-03-27] MEDS: HEPARIN NA (PORCINE) 5,000 UNITS/ML 1ML VIAL SQ SCH ×3 (06:20→21:46)
[2023-03-27 08:19] LABS: HEMATOCRIT 30.8 % (35.4-49); HEMOGLOBIN 10.6 GM/dL (11.7-16.9); MCH 28.7 pg (25.7-33.7); MCHC 34.4 g/dl (32.0-35.9); MEAN CELL VOLUME 83.5 fl (80-96); MEAN PLT VOLUME 9.3 fl (7.5-11.1); PLATELET COUNT 194 10^3/uL (134-434); RBC 3.69 M/mm3 (4.00-5.60); RDW 14.2 % (11.9-15.9); WHITE BLOOD COUNT 8.5 K/mm3 (4.0-10.0)
[2023-03-27] MEDS ORDERED: TAMSULOSIN HCL 0.4 MG CAP PO SCH (08:30)
[2023-03-27 08:46] LABS: CALCIUM 8.3 mg/dL (8.5-10.1)
[2023-03-27 08:47] LABS: BLOOD UREA NITROGEN 15.6 mg/dL (7-18)
[2023-03-27 08:49] LABS: CREATININE 1.5 mg/dL (0.55-1.3)
[2023-03-27] MEDS ORDERED: CEFTRIAXONE 1 GM in DEXTROSE 5%-WATER - 50 ML IVPB SCH (10:00)
[2023-03-27] MEDS: ASPIRIN 81 MG CHEWABLE TABLETS PO SCH (10:04)
[2023-03-27] MEDS: ACETAMINOPHEN 325 MG TABLET (FP) PO SCH (10:04)
[2023-03-27] MEDS: DOCUSATE NA 100 MG/10 ML UNIT-DOSE CUPS PO SCH ×2 (10:05→21:46)
[2023-03-27] MEDS: CEFTRIAXONE 1 GM in DEXTROSE 5%-WATER - 50 ML IVPB SCH (10:05)
[2023-03-27] MEDS: MEMANTINE HCL 10 MG TABLET (FP) PO SCH ×2 (10:06→21:46)
[2023-03-27] MEDS: ASCORBIC ACID 500 MG TABLET (FP) PO SCH ×2 (10:06→21:46)
[2023-03-27] MEDS: VENLAFAXINE HCL 25 MG TABLET PO SCH (13:32)
[2023-03-28] MEDS: HEPARIN NA (PORCINE) 5,000 UNITS/ML 1ML VIAL SQ SCH ×3 (05:40→21:13)
[2023-03-28 08:23] LABS: POTASSIUM 3.9 mmol/L (3.5-5.1)
[2023-03-28 08:25] LABS: CALCIUM 8.1 mg/dL (8.5-10.1)
[2023-03-28 08:26] LABS: BLOOD UREA NITROGEN 11.7 mg/dL (7-18)
[2023-03-28 08:29] LABS: CREATININE 1.4 mg/dL (0.55-1.3)
[2023-03-28] MEDS: ASPIRIN 81 MG CHEWABLE TABLETS PO SCH (09:17)
[2023-03-28] MEDS: ACETAMINOPHEN 325 MG TABLET (FP) PO SCH (09:18)
[2023-03-28] MEDS: VENLAFAXINE HCL 25 MG TABLET PO SCH (09:19)
[2023-03-28] MEDS: DOCUSATE NA 100 MG/10 ML UNIT-DOSE CUPS PO SCH ×2 (09:19→21:13)
[2023-03-28] MEDS: ASCORBIC ACID 500 MG TABLET (FP) PO SCH ×2 (09:19→21:13)
[2023-03-28] MEDS: SODIUM CHLORIDE 1,000 ML IV SCH ×3 (09:20→22:34)
[2023-03-28] MEDS: CEFTRIAXONE 1 GM in DEXTROSE 5%-WATER - 50 ML IVPB SCH (09:20)
[2023-03-28] MEDS ORDERED: ONDANSETRON 4 MG/2 ML VIAL IVPUSH PRN (13:12)
[2023-03-28] MEDS ORDERED: FAMOTIDINE 20 MG/50 ML IVPB 20 MG/50 ML MG IVPB SCH (13:30)
[2023-03-28] MEDS: FAMOTIDINE 20 MG/50 ML IVPB 20 MG/50 ML MG IVPB SCH (13:41)
[2023-03-29] MEDS: HEPARIN NA (PORCINE) 5,000 UNITS/ML 1ML VIAL SQ SCH ×3 (05:18→22:45)
[2023-03-29] MEDS ORDERED: BISACODYL 10 MG SUPP.RECT PR ONE (07:25)
[2023-03-29] MEDS ORDERED: CEFTRIAXONE 1 GM in DEXTROSE 5%-WATER - 50 ML IVPB SCH (10:00)
[2023-03-29 12:03] LABS: BASO % 1.3 % (0-2.0); EOS % 3.4 % (0-4.5); HEMATOCRIT 30.4 % (35.4-49); HEMOGLOBIN 10.2 GM/dL (11.7-16.9); LYMPH % 25.9 % (8-40); MCH 28.2 pg (25.7-33.7); MCHC 33.5 g/dl (32.0-35.9); MEAN CELL VOLUME 84.2 fl (80-96); NEUT % 60.4 % (42.8-82.8); PLATELET COUNT 190 10^3/uL (134-434); RBC 3.61 M/mm3 (4.00-5.60); WHITE BLOOD COUNT 7.1 K/mm3 (4.0-10.0)
[2023-03-29 12:22] LABS: POTASSIUM 3.8 mmol/L (3.5-5.1)
[2023-03-29 12:23] LABS: BLOOD UREA NITROGEN 10.1 mg/dL (7-18); CALCIUM 8.2 mg/dL (8.5-10.1)
[2023-03-29 12:24] LABS: ALBUMIN 2.9 g/dl (3.4-5.0)
[2023-03-29 12:27] LABS: CREATININE 1.5 mg/dL (0.55-1.3)
[2023-03-29 12:29] LABS: BILIRUBIN,TOTAL 0.4 mg/dL (0.2-1); TOT PROT 5.6 g/dl (6.4-8.2)
[2023-03-29] MEDS: FAMOTIDINE 20 MG/50 ML IVPB 20 MG/50 ML MG IVPB SCH (13:15)
[2023-03-29] MEDS: POLYETHYLENE GLYCOL (HEALTHYLAX) 3350 17 GM PACKET PO SCH (13:15)
[2023-03-29] MEDS: ASCORBIC ACID 500 MG TABLET (FP) PO SCH ×2 (13:16→23:00)
[2023-03-29] MEDS: ASPIRIN 81 MG CHEWABLE TABLETS PO SCH (13:16)
[2023-03-29] MEDS: ACETAMINOPHEN 325 MG TABLET (FP) PO SCH (13:16)
[2023-03-29] MEDS: DOCUSATE NA 100 MG/10 ML UNIT-DOSE CUPS PO SCH ×2 (13:16→22:44)
[2023-03-29] MEDS: VENLAFAXINE HCL 25 MG TABLET PO SCH (13:17)
[2023-03-29] MEDS ORDERED: SODIUM CHLORIDE 1,000 ML IV SCH (13:37)
[2023-03-29] MEDS ORDERED: AMOX TR/POT CLAV 875MG/125MG TABLETS (FP) PO SCH (17:30)
[2023-03-29] MEDS ORDERED: INSULIN SLIDING SCALE (NOVOLOG) 1 VIAL SQ ONE (17:49)
[2023-03-29] MEDS: LACTATED RINGERS SOLUTION 1,000 ML/1,000 ML INFUS.BAG IV SCH (22:43)
[2023-03-30] MEDS: HEPARIN NA (PORCINE) 5,000 UNITS/ML 1ML VIAL SQ SCH ×3 (05:50→22:23)
[2023-03-30 07:58] LABS: HEMATOCRIT 29.6 % (35.4-49); HEMOGLOBIN 10.2 GM/dL (11.7-16.9); MCH 28.8 pg (25.7-33.7); MCHC 34.4 g/dl (32.0-35.9); MEAN CELL VOLUME 83.7 fl (80-96); MEAN PLT VOLUME 8.8 fl (7.5-11.1); PLATELET COUNT 189 10^3/uL (134-434); RBC 3.54 M/mm3 (4.00-5.60); RDW 14.4 % (11.9-15.9); WHITE BLOOD COUNT 8.1 K/mm3 (4.0-10.0)
[2023-03-30 08:11] LABS: BLOOD UREA NITROGEN 9.7 mg/dL (7-18); CALCIUM 8.3 mg/dL (8.5-10.1)
[2023-03-30 08:15] LABS: CREATININE 1.5 mg/dL (0.55-1.3)
[2023-03-30] MEDS ORDERED: METOPROLOL TARTRATE 50 MG TABLET (FP) PO SCH ×2 (10:00)
[2023-03-30] MEDS: ACETAMINOPHEN 325 MG TABLET (FP) PO SCH (10:16)
[2023-03-30] MEDS: POLYETHYLENE GLYCOL (HEALTHYLAX) 3350 17 GM PACKET PO SCH (10:17)
[2023-03-30] MEDS: FAMOTIDINE 20 MG/50 ML IVPB 20 MG/50 ML MG IVPB SCH (10:17)
[2023-03-30] MEDS: ASPIRIN 81 MG CHEWABLE TABLETS PO SCH (10:17)
[2023-03-30] MEDS: ASCORBIC ACID 500 MG TABLET (FP) PO SCH ×2 (10:18→22:24)
[2023-03-30] MEDS: VENLAFAXINE HCL 25 MG TABLET PO SCH (10:18)
[2023-03-30] MEDS: DOCUSATE NA 100 MG/10 ML UNIT-DOSE CUPS PO SCH ×2 (10:18→22:23)
[2023-03-30] MEDS ORDERED: CEFTRIAXONE 1 GM in DEXTROSE 5%-WATER - 50 ML IVPB SCH (14:15)
[2023-03-30] MEDS ORDERED: AMPICILLIN NA/SULBACTAM NA 3 GM in SODIUM CHLORIDE 100 ML IVPB SCH (14:15)
[2023-03-30] MEDS: LACTATED RINGERS SOLUTION 1,000 ML/1,000 ML INFUS.BAG IV SCH ×2 (14:50→18:06)
[2023-03-30] MEDS: AMPICILLIN NA/SULBACTAM NA 3 GM in SODIUM CHLORIDE 100 ML IVPB SCH ×2 (14:51→17:16)
[2023-03-30] MEDS ORDERED: MELATONIN 5 MG TABLETS PO PRN (16:43)
[2023-03-31] MEDS: AMPICILLIN NA/SULBACTAM NA 3 GM in SODIUM CHLORIDE 100 ML IVPB SCH ×3 (01:04→18:37)
[2023-03-31] MEDS: HEPARIN NA (PORCINE) 5,000 UNITS/ML 1ML VIAL SQ SCH ×3 (05:55→21:44)
[2023-03-31] MEDS: ASPIRIN 81 MG CHEWABLE TABLETS PO SCH (09:34)
[2023-03-31] MEDS: DOCUSATE NA 100 MG/10 ML UNIT-DOSE CUPS PO SCH ×2 (09:34→21:47)
[2023-03-31] MEDS: POLYETHYLENE GLYCOL (HEALTHYLAX) 3350 17 GM PACKET PO SCH (09:35)
[2023-03-31] MEDS: ASCORBIC ACID 500 MG TABLET (FP) PO SCH ×2 (09:39→21:48)
[2023-03-31] MEDS: ACETAMINOPHEN 325 MG TABLET (FP) PO SCH (09:40)
[2023-03-31] MEDS: VENLAFAXINE HCL 25 MG TABLET PO SCH (09:41)
[2023-03-31] MEDS: FAMOTIDINE 20 MG/50 ML IVPB 20 MG/50 ML MG IVPB SCH (10:41)
[2023-03-31 17:26] LABS: MAGNESIUM 1.8 mg/dL (1.8-2.4)
[2023-03-31] MEDS: LACTATED RINGERS SOLUTION 1,000 ML/1,000 ML INFUS.BAG IV SCH (17:45)
[2023-03-31] MEDS: QUEtiapine FUMARATE 25 MG TABLET PO SCH (21:45)
[2023-04-01] MEDS: AMPICILLIN NA/SULBACTAM NA 3 GM in SODIUM CHLORIDE 100 ML IVPB SCH ×2 (01:58→09:11)
[2023-04-01] MEDS: HEPARIN NA (PORCINE) 5,000 UNITS/ML 1ML VIAL SQ SCH ×3 (06:24→22:08)
[2023-04-01] MEDS: POLYETHYLENE GLYCOL (HEALTHYLAX) 3350 17 GM PACKET PO SCH (09:12)
[2023-04-01] MEDS: VENLAFAXINE HCL 25 MG TABLET PO SCH (09:12)
[2023-04-01] MEDS: DOCUSATE NA 100 MG/10 ML UNIT-DOSE CUPS PO SCH ×2 (09:13→22:09)
[2023-04-01] MEDS: ACETAMINOPHEN 325 MG TABLET (FP) PO SCH (09:13)
[2023-04-01] MEDS: ASCORBIC ACID 500 MG TABLET (FP) PO SCH ×2 (09:15→22:08)
[2023-04-01] MEDS: ASPIRIN 81 MG CHEWABLE TABLETS PO SCH (09:15)
[2023-04-01] MEDS: FAMOTIDINE 20 MG/50 ML IVPB 20 MG/50 ML MG IVPB SCH (11:45)
[2023-04-01] MEDS: QUEtiapine FUMARATE 25 MG TABLET PO SCH (22:08)
[2023-04-01] MEDS: LACTATED RINGERS SOLUTION 1,000 ML/1,000 ML INFUS.BAG IV SCH (23:43)
[2023-04-02] MEDS: HEPARIN NA (PORCINE) 5,000 UNITS/ML 1ML VIAL SQ SCH ×3 (05:54→22:42)
[2023-04-02] MEDS: ACETAMINOPHEN 325 MG TABLET (FP) PO SCH (09:50)
[2023-04-02] MEDS: ASPIRIN 81 MG CHEWABLE TABLETS PO SCH (09:50)
[2023-04-02] MEDS: POLYETHYLENE GLYCOL (HEALTHYLAX) 3350 17 GM PACKET PO SCH (09:51)
[2023-04-02] MEDS: ASCORBIC ACID 500 MG TABLET (FP) PO SCH ×2 (09:51→22:40)
[2023-04-02] MEDS: DOCUSATE NA 100 MG/10 ML UNIT-DOSE CUPS PO SCH ×2 (09:51→22:39)
[2023-04-02] MEDS: VENLAFAXINE HCL 25 MG TABLET PO SCH (09:52)
[2023-04-02] MEDS: QUEtiapine FUMARATE 25 MG TABLET PO SCH (22:40)
[2023-04-02] MEDS: LACTATED RINGERS SOLUTION 1,000 ML/1,000 ML INFUS.BAG IV SCH (22:41)
[2023-04-03] MEDS: HEPARIN NA (PORCINE) 5,000 UNITS/ML 1ML VIAL SQ SCH (05:24)
[2023-04-03 08:03] VITALS: PULSE 53; RESP 20; TEMP 97.6
[2023-04-03 08:47] VITALS: BP 142/67
[2023-04-03] MEDS: DOCUSATE NA 100 MG/10 ML UNIT-DOSE CUPS PO SCH (09:13)
[2023-04-03] MEDS: POLYETHYLENE GLYCOL (HEALTHYLAX) 3350 17 GM PACKET PO SCH (09:14)
[2023-04-03] MEDS: ASPIRIN 81 MG CHEWABLE TABLETS PO SCH (09:14)
[2023-04-03] MEDS: ACETAMINOPHEN 325 MG TABLET (FP) PO SCH (09:14)
[2023-04-03] MEDS: ASCORBIC ACID 500 MG TABLET (FP) PO SCH (09:14)
[2023-04-03] MEDS: VENLAFAXINE HCL 25 MG TABLET PO SCH (09:15)
== END 2023-04-03 13:13 | DRG 312 ==
LOC: JER 17:16 → UNDOADMOB 21:40 → INTOOBSV 21:40 → JERBED 21:40 → OBSVTOIN 21:40 → J4S 03-26 01:59 → JERBED 03-26 01:59 → OBSVTOIN 03-28 17:03 → J4S 03-28 17:03 → JERBED 03-28 17:03
PROVIDERS: ADMIT Internal Medicine; ATTEND Internal Medicine
DX: I95.1 Orthostatic hypotension (principal); G93.41 Metabolic encephalopathy; N39.0 Urinary tract infection, site not specified; N17.9 Acute kidney failure, unspecified; E87.5 Hyperkalemia; I25.10 Atherosclerotic heart disease of native coronary artery without angina pectoris; G30.9 Alzheimer's disease, unspecified; F02.80 Dementia in other diseases classified elsewhere, unspecified severity, without behavioral disturbance, psychotic disturbance, mood disturbance, and anxiety; I12.9 Hypertensive chronic kidney disease with stage 1 through stage 4 chronic kidney disease, or unspecified chronic kidney disease; N18.9 Chronic kidney disease, unspecified; N18.30 Chronic kidney disease, stage 3 unspecified; R11.10 Vomiting, unspecified; R11.2 Nausea with vomiting, unspecified
CPT/HCPCS: 36415; 70450-TC; 71045-TC-FY; 72125-TC; 72170-TC-FY; 74018-TC-FY; 74176-TC; 76705-TC; 76775-TC; 80048; 80053; 81003; 82550; 82962; 83605; 83690; 83735; 84100; 84484; 85025; 85027; 85610; 85730; 87086; 87186; 90715; 93005; 93010; 93306-TC; 97116-GP; 97161-GP; 99285-25; C9803-CS; J1644; U0003; U0005